=== PATIENT | female | born 1950 | race Caucasian/White ===

== ENCOUNTER 2016-02-15 09:37 | Inpatient (IN) | payer OTHER, MEDICARE ==
[2016-02-15] VITALS (32 sets, daily range): BP systolic 66–104; BP diastolic 37–63
[~2016-02-15] VITALS: Ht 152.4 cm; Wt 81.6 kg
[~2016-02-15 09:37] MED LIST: AMIO200T2 GT; ASPI81TA2 GT; ATOR10TA GT; BETA1TAB4 GT; BISA10SU8 RC; DEXT15DR EACHEYE; FOLI0.8T2 GT; INSU100I19 SQ; INSU100V3 SQ; LEVO50TA8 GT; LIDO30AD10 TP; LOPE2CAP GT; MELA3TAB GT; METO5SOL GT; MIDO10TA GT; MORP10SO GT; NUTR100037 GT; OMEP40CA37 GT; TRAM50TA2 GT; ZINC220C6 GT
[2016-02-15] MEDS ORDERED: ONDANSETRON HCL/PF 4 MG/2 ML VIAL ONE ×2 (10:24→21:41)
[2016-02-15] MEDS ORDERED: IV NS 0.9% 1,000 ML ONE (10:25)
[2016-02-15] MEDS ORDERED: IV SET PRIMARY PUMP SET 1 EA INFUS.SET MC ONE ×4 (10:25→17:41)
[2016-02-15] MEDS ORDERED: ONDANSETRON HCL/PF 4 MG/2 ML VIAL IVP ONE (10:30)
[2016-02-15] MEDS ORDERED: IV NS 0.9% 1,000 ML BAG IV ONE ×2 (10:30→13:30)
[2016-02-15 10:35] LABS: BASOPHILS # (AUTO) 0.5 /CMM (0.0-0.2); BASOPHILS % (AUTO) 2.6 % (0.0-2.0); DIFF TOTAL % 100 %; EOSINOPHILS % (AUTO) 0.2 % (0.0-6.0); HEMATOCRIT 33 % (33-45); HEMOGLOBIN 10.7 g/dL (11.5-14.8); LYMPHOCYTES # (AUTO) 0.6 /CMM (0.8-4.8); LYMPHOCYTES % (AUTO) 3.5 % (20.0-44.0); MEAN CORPUSCULAR HEMOGLOBIN 30 PG (26.0-33.0); MEAN CORPUSCULAR HGB CONC 32 g/dl (31.0-36.0); MEAN CORPUSCULAR VOLUME 93 fL (82-100); MONOCYTES # (AUTO) 0.1 /CMM (0.1-1.30); MONOCYTES % (AUTO) 0.8 % (2.0-12.0); NEUTROPHILS % (AUTO) 92.9 % (43.0-81.0); PLATELET COUNT (AUTO) 204 /CMM (150-450); WHITE BLOOD COUNT (AUTO) 18.2 K/uL (4.3-11.0)
[2016-02-15 10:49] LABS: CREATININE 4.3 mg/dL (0.6-1.3); INR 1.14 (0.87-1.13); POTASSIUM 5.4 mmol/L (3.5-5.1)
[2016-02-15 10:58] LABS: ALBUMIN 1.8 g/dL (3.4-5.0); BILIRUBIN,DIRECT 0.4 mg/dL (0.0-0.2); INDIRECT BILIRUBIN 0.6 mg/dL (0.0-1.1); TOTAL PROTEIN, SERUM 7.9 g/dL (6.4-8.2)
[2016-02-15 11:01] LABS: TROPONIN I 0.026 ng/mL (0.00-0.056)
[2016-02-15] MEDS ORDERED: ONDA4TAB5 GT (11:04)
[2016-02-15] MEDS ORDERED: AMIN30LI2 GT (11:04)
[2016-02-15] MEDS ORDERED: SIME80TA15 GT (11:04)
[2016-02-15] MEDS ORDERED: SENN8.6T6 GT (11:04)
[2016-02-15] MEDS ORDERED: LACT10SO29 GT (11:04)
[2016-02-15] MEDS ORDERED: DOCU50LI GT (11:04)
[2016-02-15] MEDS ORDERED: LEVOFLOXACIN 750 MG /D5W 150ML 750 MG in PREMIX 1 EA IV ONE (12:30)
[2016-02-15] MEDS ORDERED: VANCOMYCIN 1 GM in IV D5W 250 ML IV ONE (12:30)
[2016-02-15] MEDS ORDERED: LEVOFLOXACIN 750 MG /D5W 150ML 150 ML IV ONE (12:37)
[2016-02-15 12:55] LABS: *LACTIC ACID REFLEX FLAG YES
[2016-02-15] MEDS ORDERED: IV NS 0.9% 2,000 ML ONE (13:49)
[2016-02-15] MEDS ORDERED: DEXTROSE 50%-WATER 50 ML DISP.SYRIN IV PRN (16:30)
[2016-02-15] MEDS ORDERED: INSULIN DETEMIR 100 UNIT/ML CARTRIDGE SQ SCH (16:30)
[2016-02-15] MEDS ORDERED: HYDROGEL DRESSING 90 GM TUBE TP PRN (16:30)
[2016-02-15] MEDS ORDERED: MEROPENEM 500 MG in IV NS 0.9% 50 ML IV SCH ×2 (16:30→17:30)
[2016-02-15] MEDS ORDERED: Z GUARD REMEDY 4 OZ OINT TP PRN (16:30)
[2016-02-15] MEDS: IV NS 0.9% 1,000 ML IV PRN (16:38)
[2016-02-15] MEDS ORDERED: ONDANSETRON 4 MG TAB.RAPDIS GT PRN (17:00)
[2016-02-15] MEDS ORDERED: POLYVINYL ALCOHOL 15 ML BOTTLE EACHEYE PRN (17:00)
[2016-02-15] MEDS ORDERED: BISACODYL SUPP (10 MG) 10 MG/SUPP.RECT SUPP.RECT RC PRN (17:00)
[2016-02-15] MEDS ORDERED: MORPHINE SULFATE SOLN CONCENTRATED 20 MG/ML GT PRN (17:30)
[2016-02-15] MEDS ORDERED: IV NS 0.9% 500 ML IV ONE ×2 (17:41→18:00)
[2016-02-15] MEDS: DOCUSATE SODIUM LIQ 100 MG/10 ML UDC GT SCH (17:46)
[2016-02-15] MEDS: MIDODRINE HCL (5MG) 5 MG TABLET GT SCH (17:46)
[2016-02-15] MEDS: PANTOPRAZOLE 40 MG VIAL IV SCH (17:46)
[2016-02-15] MEDS: PROSOURCE / PROSTAT (PYXIS) 30 ML UDC GT SCH (17:47)
[2016-02-15] MEDS: AMIODARONE HCL 200 MG TABLET GT SCH (17:47)
[2016-02-15] MEDS ORDERED: NOREPINEPHRINE 16 MG in IV D5W 500 ML IV PRN (18:00)
[2016-02-15] MEDS: BLOOD SUGAR DIAGNOSTIC 1 EACH STRIP IN SCH ×2 (18:02→23:41)
[2016-02-15] MEDS ORDERED: LEVOFLOXACIN 750 MG /D5W 150ML 750 MG in PREMIX 1 EA IV SCH (18:30)
[2016-02-15] MEDS: IPRATROPIUM NEB FS 0.5 MG/2.5 ML AMPUL.NEB NEB SCH (19:22)
[2016-02-15] MEDS ORDERED: SECONDARY IV SET 1 EA INFUS.SET MC ONE (19:29)
[2016-02-15] MEDS: ONDANSETRON HCL/PF 4 MG/2 ML VIAL IV PRN (21:53)
[2016-02-15] MEDS: INSULIN DETEMIR 100 UNIT/ML CARTRIDGE SQ SCH (21:54)
[2016-02-15] MEDS: HEPARIN SODIUM, PORCINE 5000 UNITS/1 ML VIAL SQ SCH (21:54)
[2016-02-15] MEDS: ATORVASTATIN 10 MG TABLET GT SCH (21:55)
[2016-02-15] MEDS: SENNOSIDES 8.6 MG TABLET GT SCH (21:55)
[2016-02-15] MEDS ORDERED: Medication Not On Formulary EA (Melatonin 3 MG) GT SCH (22:00)
[2016-02-16] VITALS (89 sets, daily range): BP systolic 76–127; BP diastolic 34–71
[2016-02-16] MEDS: IPRATROPIUM NEB FS 0.5 MG/2.5 ML AMPUL.NEB NEB SCH ×4 (01:03→19:22)
[2016-02-16] MEDS: PANTOPRAZOLE 40 MG VIAL IV SCH ×2 (04:45→16:32)
[2016-02-16] MEDS: HEPARIN SODIUM, PORCINE 5000 UNITS/1 ML VIAL SQ SCH (04:46)
[2016-02-16 05:18] LABS: HEMATOCRIT 24 % (33-45); HEMOGLOBIN 7.8 g/dL (11.5-14.8); MEAN CORPUSCULAR HEMOGLOBIN 30 PG (26.0-33.0); MEAN CORPUSCULAR HGB CONC 33 g/dl (31.0-36.0); MEAN CORPUSCULAR VOLUME 93 fL (82-100); PLATELET COUNT (AUTO) 109 /CMM (150-450); WHITE BLOOD COUNT (AUTO) 12.6 K/uL (4.3-11.0)
[2016-02-16 05:28] LABS: CREATININE 4.6 mg/dL (0.6-1.3); POTASSIUM 5.1 mmol/L (3.5-5.1)
[2016-02-16 05:34] LABS: ALBUMIN 1.5 g/dL (3.4-5.0); BILIRUBIN,TOTAL 0.6 mg/dL (0.2-1.0); LACTIC ACID 0.7 mmol/L (0.4-2.0); TOTAL PROTEIN, SERUM 6.5 g/dL (6.4-8.2)
[2016-02-16] MEDS: BLOOD SUGAR DIAGNOSTIC 1 EACH STRIP IN SCH ×4 (05:37→18:32)
[2016-02-16] MEDS: IV NS 0.9% 1,000 ML IV PRN (05:37)
[2016-02-16] MEDS: LEVOTHYROXINE SODIUM 50 MCG TABLET GT SCH (05:37)
[2016-02-16 06:02] LABS: ANISOCYTOSIS 2+; BAND % (MANUAL) 6 % (0.0-5.0); BASOPHILS % (MANUAL) 0 % (0.0-2.0); EOSINOPHILS % (MANUAL) 0 % (0-4); LYMPHOCYTES % (MANUAL) 5 % (16-48); PLATELET ESTIMATE DECREASED
[2016-02-16] MEDS ORDERED: [UNRECOGNIZED DRUG - OTHER] GT SCH (09:00)
[2016-02-16] MEDS: INSULIN DETEMIR 100 UNIT/ML CARTRIDGE SQ SCH ×2 (09:00→21:00)
[2016-02-16] MEDS: PROSOURCE / PROSTAT (PYXIS) 30 ML UDC GT SCH ×3 (09:01→16:36)
[2016-02-16] MEDS: DOCUSATE SODIUM LIQ 100 MG/10 ML UDC GT SCH ×2 (09:01→16:36)
[2016-02-16] MEDS: VIT B CMPLX 3/FA/VIT C/BIOTIN 1 TAB TABLET PO SCH (09:02)
[2016-02-16] MEDS: MIDODRINE HCL (5MG) 5 MG TABLET GT SCH ×3 (09:03→16:37)
[2016-02-16] MEDS: AMIODARONE HCL 200 MG TABLET GT SCH (09:04)
[2016-02-16] MEDS: TRAMADOL HCL 50 MG TABLET GT PRN (09:04)
[2016-02-16] MEDS: LIDOCAINE 5% (PATCH) 1 EA PATCH TP SCH (09:05)
[2016-02-16] MEDS ORDERED: DIATR MEGLU/DIATRIZOATE SODIUM 120 ML BOTTLE (GASTROGRAPHIN) ONE (09:35)
[2016-02-16] MEDS ORDERED: ALBUMIN 25% 25 GM in PREMIX 1 EA IV ONE (11:00)
[2016-02-16] MEDS: MEROPENEM 500 MG in IV NS 0.9% 50 ML IV SCH (12:44)
[2016-02-16] MEDS ORDERED: IV NS 0.9% 1,000 ML ONE (18:51)
[2016-02-16] MEDS: SENNOSIDES 8.6 MG TABLET GT SCH (22:00)
[2016-02-16] MEDS: ATORVASTATIN 10 MG TABLET GT SCH (22:00)
[2016-02-17] VITALS (73 sets, daily range): BP systolic 91–112; BP diastolic 48–70
[2016-02-17] MEDS ORDERED: HYDROMORPHONE 1 MG/1 ML DISP.SYRIN ONE (00:04)
[2016-02-17] MEDS: HYDROMORPHONE 1 MG/1 ML DISP.SYRIN IV PRN ×3 (00:16→22:25)
[2016-02-17] MEDS: BLOOD SUGAR DIAGNOSTIC 1 EACH STRIP IN SCH ×5 (00:17→19:55)
[2016-02-17] MEDS: MEROPENEM 500 MG in IV NS 0.9% 50 ML IV SCH ×2 (00:19→15:59)
[2016-02-17] MEDS: IPRATROPIUM NEB FS 0.5 MG/2.5 ML AMPUL.NEB NEB SCH ×4 (01:08→20:18)
[2016-02-17] MEDS: PANTOPRAZOLE 40 MG VIAL IV SCH ×2 (05:00→15:59)
[2016-02-17 05:39] LABS: BASOPHILS % (AUTO) 0.2 % (0.0-2.0); DIFF TOTAL % 100 %; EOSINOPHILS % (AUTO) 0.3 % (0.0-6.0); HEMATOCRIT 21 % (33-45); LYMPHOCYTES # (AUTO) 0.4 /CMM (0.8-4.8); LYMPHOCYTES % (AUTO) 5.5 % (20.0-44.0); MEAN CORPUSCULAR HEMOGLOBIN 30 PG (26.0-33.0); MEAN CORPUSCULAR HGB CONC 33 g/dl (31.0-36.0); MEAN CORPUSCULAR VOLUME 92 fL (82-100); MONOCYTES # (AUTO) 0.4 /CMM (0.1-1.30); MONOCYTES % (AUTO) 5.3 % (2.0-12.0); NEUTROPHILS # (AUTO) 6.5 /CMM (1.8-8.9); NEUTROPHILS % (AUTO) 88.7 % (43.0-81.0); PLATELET COUNT (AUTO) 88 /CMM (150-450); RED BLOOD CELL COUNT(AUTO) 2.28 MIL/uL (4.0-5.2); WHITE BLOOD COUNT (AUTO) 7.4 K/uL (4.3-11.0)
[2016-02-17 05:45] LABS: HEMOGLOBIN 6.9 g/dL (11.5-14.8)
[2016-02-17 05:59] LABS: ALBUMIN 1.7 g/dL (3.4-5.0); BILIRUBIN,TOTAL 0.5 mg/dL (0.2-1.0); CALCIUM, SERUM 7.3 mg/dL (8.5-10.1); CREATININE 3.4 mg/dL (0.6-1.3); POTASSIUM 3.7 mmol/L (3.5-5.1)
[2016-02-17] MEDS: LEVOTHYROXINE SODIUM 50 MCG TABLET GT SCH (06:10)
[2016-02-17] MEDS: INSULIN DETEMIR 100 UNIT/ML CARTRIDGE SQ SCH ×2 (09:00→21:00)
[2016-02-17 09:25] LABS: ANISOCYTOSIS 1+; BAND % (MANUAL) 5 % (0.0-5.0); HYPOCHROMASIA 1+; LYMPHOCYTES % (MANUAL) 6 % (16-48); PLATELET ESTIMATE DECREASED
[2016-02-17] MEDS: PROSOURCE / PROSTAT (PYXIS) 30 ML UDC GT SCH ×3 (09:55→17:00)
[2016-02-17] MEDS: VIT B CMPLX 3/FA/VIT C/BIOTIN 1 TAB TABLET PO SCH (09:55)
[2016-02-17] MEDS: DOCUSATE SODIUM LIQ 100 MG/10 ML UDC GT SCH ×2 (09:55→17:00)
[2016-02-17] MEDS: AMIODARONE HCL 200 MG TABLET GT SCH (09:55)
[2016-02-17] MEDS: LIDOCAINE 5% (PATCH) 1 EA PATCH TP SCH (09:56)
[2016-02-17] MEDS: MIDODRINE HCL (5MG) 5 MG TABLET GT SCH ×3 (09:56→17:00)
[2016-02-17] MEDS: METOCLOPRAMIDE HCL 5 MG/5 ML UDC GT PRN (16:10)
[2016-02-17] MEDS: IV NS 0.9% 1,000 ML IV PRN (16:15)
[2016-02-17] MEDS ORDERED: LEVOFLOXACIN 500 MG /D5W 100ML 500 MG in PREMIX 1 EA IV SCH (18:00)
[2016-02-17] MEDS: SENNOSIDES 8.6 MG TABLET GT SCH (22:00)
[2016-02-17] MEDS: ATORVASTATIN 10 MG TABLET GT SCH ×2 (22:00→22:21)
[2016-02-18] VITALS: BP_SYST 105; BP_SYST 88; BP_DIAS 54; BP_DIAS 57
[2016-02-18] MEDS: MEROPENEM 500 MG in IV NS 0.9% 50 ML IV SCH ×2 (00:06→12:03)
[2016-02-18] MEDS: BLOOD SUGAR DIAGNOSTIC 1 EACH STRIP IN SCH ×3 (00:13→17:02)
[2016-02-18] MEDS: IPRATROPIUM NEB FS 0.5 MG/2.5 ML AMPUL.NEB NEB SCH ×4 (01:19→19:49)
[2016-02-18] MEDS: IV NS 0.9% 1,000 ML IV PRN ×2 (03:21→16:42)
[2016-02-18] MEDS: HYDROMORPHONE 1 MG/1 ML DISP.SYRIN IV PRN ×3 (03:29→21:31)
[2016-02-18] MEDS: PANTOPRAZOLE 40 MG VIAL IV SCH ×2 (03:33→15:41)
[2016-02-18 04:00] VITALS: BP 107/59
[2016-02-18] MEDS: LEVOTHYROXINE SODIUM 50 MCG TABLET GT SCH (06:26)
[2016-02-18 06:51] LABS: BASOPHILS % (AUTO) 0.6 % (0.0-2.0); DIFF TOTAL % 100 %; EOSINOPHILS % (AUTO) 0.2 % (0.0-6.0); HEMATOCRIT 24 % (33-45); HEMOGLOBIN 7.7 g/dL (11.5-14.8); LYMPHOCYTES # (AUTO) 0.6 /CMM (0.8-4.8); MEAN CORPUSCULAR HEMOGLOBIN 30 PG (26.0-33.0); MEAN CORPUSCULAR HGB CONC 32 g/dl (31.0-36.0); MEAN CORPUSCULAR VOLUME 93 fL (82-100); MONOCYTES # (AUTO) 0.3 /CMM (0.1-1.30); MONOCYTES % (AUTO) 3.3 % (2.0-12.0); NEUTROPHILS % (AUTO) 87.9 % (43.0-81.0); PLATELET COUNT (AUTO) 110 /CMM (150-450); RED BLOOD CELL COUNT(AUTO) 2.59 MIL/uL (4.0-5.2); WHITE BLOOD COUNT (AUTO) 7.9 K/uL (4.3-11.0)
[2016-02-18 07:48] LABS: CREATININE 4.2 mg/dL (0.6-1.3); PHOSPHORUS 5.9 mg/dL (2.5-4.9)
[2016-02-18 08:00] VITALS: BP 114/64
[2016-02-18] MEDS: LIDOCAINE 5% (PATCH) 1 EA PATCH TP SCH (08:27)
[2016-02-18] MEDS: DOCUSATE SODIUM LIQ 100 MG/10 ML UDC GT SCH ×2 (08:27→16:27)
[2016-02-18] MEDS: PROSOURCE / PROSTAT (PYXIS) 30 ML UDC GT SCH ×3 (08:27→16:27)
[2016-02-18] MEDS: MIDODRINE HCL (5MG) 5 MG TABLET GT SCH ×3 (08:28→16:27)
[2016-02-18] MEDS: ONDANSETRON HCL/PF 4 MG/2 ML VIAL IV PRN (08:28)
[2016-02-18] MEDS: AMIODARONE HCL 200 MG TABLET GT SCH (08:28)
[2016-02-18] MEDS: VIT B CMPLX 3/FA/VIT C/BIOTIN 1 TAB TABLET PO SCH (08:28)
[2016-02-18] MEDS: INSULIN DETEMIR 100 UNIT/ML CARTRIDGE SQ SCH ×2 (08:30→21:00)
[2016-02-18] MEDS ORDERED: EPOETIN ALFA (10,000 UNIT) 10,000 UNIT/ML VIAL SQ ONE (09:00)
[2016-02-18 12:00] VITALS: BP 115/82
[2016-02-18 16:00] VITALS: BP 115/50
[2016-02-18 20:00] VITALS: BP 109/61
[2016-02-18] MEDS: CEFEPIME 1 GM in IV D5W 50 ML IV SCH (20:29)
[2016-02-18] MEDS: SENNOSIDES 8.6 MG TABLET GT SCH (21:25)
[2016-02-18] MEDS: ATORVASTATIN 10 MG TABLET GT SCH (21:25)
[2016-02-18] MEDS: METOPROLOL TARTRATE 25 MG TABLET PO SCH (21:26)
[2016-02-18] MEDS ORDERED: ZOLPIDEM TARTRATE 5 MG TABLET ONE (22:47)
[2016-02-18] MEDS ORDERED: ZOLPIDEM TARTRATE 10 MG TABLET PO ONE (23:00)
[2016-02-19] VITALS: BP 88/57
[2016-02-19] MEDS: BLOOD SUGAR DIAGNOSTIC 1 EACH STRIP IN SCH ×5 (00:39→23:55)
[2016-02-19] MEDS: IPRATROPIUM NEB FS 0.5 MG/2.5 ML AMPUL.NEB NEB SCH ×4 (01:47→20:15)
[2016-02-19] MEDS: HYDROMORPHONE 1 MG/1 ML DISP.SYRIN IV PRN ×3 (01:51→20:05)
[2016-02-19 04:00] VITALS: BP 98/60
[2016-02-19] MEDS: PANTOPRAZOLE 40 MG VIAL IV SCH ×2 (04:53→16:30)
[2016-02-19] MEDS: LEVOTHYROXINE SODIUM 50 MCG TABLET GT SCH (05:50)
[2016-02-19] MEDS: IV NS 0.9% 1,000 ML IV PRN ×2 (06:22→18:03)
[2016-02-19 08:00] VITALS: BP 98/54
[2016-02-19] MEDS: PROSOURCE / PROSTAT (PYXIS) 30 ML UDC GT SCH ×3 (08:56→16:30)
[2016-02-19] MEDS: VIT B CMPLX 3/FA/VIT C/BIOTIN 1 TAB TABLET PO SCH (08:57)
[2016-02-19] MEDS: MIDODRINE HCL (5MG) 5 MG TABLET GT SCH ×3 (08:57→16:30)
[2016-02-19] MEDS: METOPROLOL TARTRATE 25 MG TABLET PO SCH ×2 (08:57→20:22)
[2016-02-19] MEDS: DOCUSATE SODIUM LIQ 100 MG/10 ML UDC GT SCH ×2 (09:00→16:30)
[2016-02-19] MEDS: LIDOCAINE 5% (PATCH) 1 EA PATCH TP SCH (09:02)
[2016-02-19] MEDS: INSULIN DETEMIR 100 UNIT/ML CARTRIDGE SQ SCH ×2 (09:02→22:27)
[2016-02-19 12:00] VITALS: BP 118/69
[2016-02-19 16:00] VITALS: BP 143/77
[2016-02-19] MEDS: RENAL NOVASOURCE 1,000 ML BOTTLE GT PRN (18:03)
[2016-02-19 20:00] VITALS: BP 123/62
[2016-02-19] MEDS: CEFEPIME 1 GM in IV D5W 50 ML IV SCH (20:14)
[2016-02-19] MEDS: SENNOSIDES 8.6 MG TABLET GT SCH (21:02)
[2016-02-19] MEDS: ATORVASTATIN 10 MG TABLET GT SCH (21:02)
[2016-02-20] VITALS (7 sets, daily range): BP systolic 87–99; BP diastolic 41–55
[2016-02-20] MEDS: HYDROMORPHONE 1 MG/1 ML DISP.SYRIN IV PRN ×2 (01:15→20:16)
[2016-02-20] MEDS: IPRATROPIUM NEB FS 0.5 MG/2.5 ML AMPUL.NEB NEB SCH ×4 (01:30→20:02)
[2016-02-20] MEDS: PANTOPRAZOLE 40 MG VIAL IV SCH ×2 (04:37→19:13)
[2016-02-20] MEDS: LEVOTHYROXINE SODIUM 50 MCG TABLET GT SCH (05:25)
[2016-02-20] MEDS: BLOOD SUGAR DIAGNOSTIC 1 EACH STRIP IN SCH ×3 (05:25→19:16)
[2016-02-20] MEDS: INSULIN REGULAR, HUMAN 100 UNIT/ML 3 ML VIAL SQ PRN ×3 (05:26→19:20)
[2016-02-20] MEDS: METOPROLOL TARTRATE 25 MG TABLET PO SCH ×2 (09:00→21:00)
[2016-02-20] MEDS: LIDOCAINE 5% (PATCH) 1 EA PATCH TP SCH (09:21)
[2016-02-20] MEDS: PROSOURCE / PROSTAT (PYXIS) 30 ML UDC GT SCH ×3 (09:21→19:13)
[2016-02-20] MEDS: MIDODRINE HCL (5MG) 5 MG TABLET GT SCH ×3 (09:21→19:14)
[2016-02-20] MEDS: VIT B CMPLX 3/FA/VIT C/BIOTIN 1 TAB TABLET PO SCH (09:21)
[2016-02-20] MEDS: DOCUSATE SODIUM LIQ 100 MG/10 ML UDC GT SCH ×2 (09:21→17:00)
[2016-02-20] MEDS: METOCLOPRAMIDE HCL 5 MG/5 ML UDC GT PRN ×2 (09:24→20:17)
[2016-02-20] MEDS: INSULIN DETEMIR 100 UNIT/ML CARTRIDGE SQ SCH ×2 (09:53→21:45)
[2016-02-20] MEDS: IV NS 0.9% 1,000 ML IV PRN (09:53)
[2016-02-20] MEDS ORDERED: IV SET PRIMARY PUMP SET 1 EA INFUS.SET MC ONE (13:00)
[2016-02-20] MEDS ORDERED: IV NS 0.9% 250 ML BAG IV ONE (13:00)
[2016-02-20] MEDS ORDERED: IV NS 0.9% 1,000 ML IV PRN (13:00)
[2016-02-20] MEDS: CEFEPIME 1 GM in IV D5W 50 ML IV SCH (20:15)
[2016-02-20] MEDS: RENAL NOVASOURCE 1,000 ML BOTTLE GT PRN (20:17)
[2016-02-20] MEDS: ATORVASTATIN 10 MG TABLET GT SCH (21:41)
[2016-02-20] MEDS: TRAMADOL HCL 50 MG TABLET GT PRN (21:42)
[2016-02-20] MEDS: SENNOSIDES 8.6 MG TABLET GT SCH (21:46)
[2016-02-21] VITALS (7 sets, daily range): BP systolic 103–133; BP diastolic 51–76
[2016-02-21] MEDS: HYDROMORPHONE 1 MG/1 ML DISP.SYRIN IV PRN ×3 (00:52→19:25)
[2016-02-21] MEDS: BLOOD SUGAR DIAGNOSTIC 1 EACH STRIP IN SCH ×5 (01:08→23:35)
[2016-02-21] MEDS: IPRATROPIUM NEB FS 0.5 MG/2.5 ML AMPUL.NEB NEB SCH ×2 (01:42→19:58)
[2016-02-21] MEDS: IV NS 0.9% 1,000 ML IV PRN ×2 (04:21→17:56)
[2016-02-21] MEDS: ONDANSETRON HCL/PF 4 MG/2 ML VIAL IV PRN (04:39)
[2016-02-21] MEDS: PANTOPRAZOLE 40 MG VIAL IV SCH ×2 (04:39→18:05)
[2016-02-21] MEDS: LEVOTHYROXINE SODIUM 50 MCG TABLET GT SCH (05:45)
[2016-02-21] MEDS: INSULIN REGULAR, HUMAN 100 UNIT/ML 3 ML VIAL SQ PRN ×3 (05:48→23:47)
[2016-02-21] MEDS: VIT B CMPLX 3/FA/VIT C/BIOTIN 1 TAB TABLET PO SCH (08:58)
[2016-02-21] MEDS: PROSOURCE / PROSTAT (PYXIS) 30 ML UDC GT SCH ×3 (09:00→18:05)
[2016-02-21] MEDS: DOCUSATE SODIUM LIQ 100 MG/10 ML UDC GT SCH ×2 (09:00→18:07)
[2016-02-21] MEDS: MIDODRINE HCL (5MG) 5 MG TABLET GT SCH ×3 (09:01→18:08)
[2016-02-21] MEDS: METOPROLOL TARTRATE 25 MG TABLET PO SCH (09:02)
[2016-02-21] MEDS: LIDOCAINE 5% (PATCH) 1 EA PATCH TP SCH (09:02)
[2016-02-21] MEDS: INSULIN DETEMIR 100 UNIT/ML CARTRIDGE SQ SCH ×2 (09:04→20:27)
[2016-02-21] MEDS: METOCLOPRAMIDE HCL 5 MG/5 ML UDC GT PRN (09:05)
[2016-02-21] MEDS ORDERED: POTASSIUM CL. PREMIX PERIPHER. 50 ML IV SCH (11:30)
[2016-02-21] MEDS ORDERED: SECONDARY IV SET 1 EA INFUS.SET MC ONE ×4 (11:42→23:37)
[2016-02-21] MEDS: ALBUMIN 25% 25 GM in PREMIX 1 EA IV SCH ×3 (12:09→23:35)
[2016-02-21] MEDS ORDERED: DIGOXIN INJ 0.5 MG/2 ML AMPUL IV ONE ×2 (17:00→21:00)
[2016-02-21] MEDS: CEFEPIME 1 GM in IV D5W 50 ML IV SCH (20:25)
[2016-02-21] MEDS: ATORVASTATIN 10 MG TABLET GT SCH (21:27)
[2016-02-21] MEDS: SENNOSIDES 8.6 MG TABLET GT SCH (21:27)
[2016-02-22] VITALS: BP 130/64
[2016-02-22] MEDS: HYDROMORPHONE 1 MG/1 ML DISP.SYRIN IV PRN ×2 (00:20→10:48)
[2016-02-22] MEDS: IPRATROPIUM NEB FS 0.5 MG/2.5 ML AMPUL.NEB NEB SCH ×4 (01:30→19:30)
[2016-02-22 04:00] VITALS: BP 92/45
[2016-02-22] MEDS: PANTOPRAZOLE 40 MG VIAL IV SCH ×2 (04:45→16:09)
[2016-02-22] MEDS: RENAL NOVASOURCE 1,000 ML BOTTLE GT PRN (04:49)
[2016-02-22] MEDS: ALBUMIN 25% 25 GM in PREMIX 1 EA IV SCH (04:49)
[2016-02-22] MEDS: BLOOD SUGAR DIAGNOSTIC 1 EACH STRIP IN SCH ×4 (06:20→23:45)
[2016-02-22] MEDS: LEVOTHYROXINE SODIUM 50 MCG TABLET GT SCH (06:20)
[2016-02-22 08:00] VITALS: BP 94/42
[2016-02-22 08:02] LABS: BASOPHILS % (AUTO) 0.3 % (0.0-2.0); DIFF TOTAL % 100 %; EOSINOPHILS % (AUTO) 0.3 % (0.0-6.0); HEMATOCRIT 22 % (33-45); HEMOGLOBIN 7.1 g/dL (11.5-14.8); LYMPHOCYTES # (AUTO) 0.7 /CMM (0.8-4.8); LYMPHOCYTES % (AUTO) 11.3 % (20.0-44.0); MEAN CORPUSCULAR HEMOGLOBIN 29 PG (26.0-33.0); MEAN CORPUSCULAR HGB CONC 32 g/dl (31.0-36.0); MEAN CORPUSCULAR VOLUME 92 fL (82-100); MONOCYTES # (AUTO) 0.3 /CMM (0.1-1.30); MONOCYTES % (AUTO) 4.8 % (2.0-12.0); NEUTROPHILS # (AUTO) 5.1 /CMM (1.8-8.9); NEUTROPHILS % (AUTO) 83.3 % (43.0-81.0); PLATELET COUNT (AUTO) 88 /CMM (150-450); RED BLOOD CELL COUNT(AUTO) 2.42 MIL/uL (4.0-5.2); WHITE BLOOD COUNT (AUTO) 6.1 K/uL (4.3-11.0)
[2016-02-22 08:07] LABS: CALCIUM, SERUM 7.7 mg/dL (8.5-10.1); CREATININE 3.3 mg/dL (0.6-1.3); PHOSPHORUS 2.9 mg/dL (2.5-4.9); POTASSIUM 3.1 mmol/L (3.5-5.1)
[2016-02-22] MEDS: DOCUSATE SODIUM LIQ 100 MG/10 ML UDC GT SCH ×2 (08:15→16:06)
[2016-02-22] MEDS: PROSOURCE / PROSTAT (PYXIS) 30 ML UDC GT SCH ×3 (08:15→16:05)
[2016-02-22] MEDS: VIT B CMPLX 3/FA/VIT C/BIOTIN 1 TAB TABLET PO SCH (08:18)
[2016-02-22] MEDS: MIDODRINE HCL (5MG) 5 MG TABLET GT SCH ×3 (08:18→16:09)
[2016-02-22] MEDS: LIDOCAINE 5% (PATCH) 1 EA PATCH TP SCH (08:19)
[2016-02-22] MEDS: INSULIN DETEMIR 100 UNIT/ML CARTRIDGE SQ SCH ×2 (08:20→21:00)
[2016-02-22] MEDS ORDERED: POTASSIUM CHLORIDE 20 MEQ TAB.PRT.SR PO ONE (11:30)
[2016-02-22] MEDS: INSULIN REGULAR, HUMAN 100 UNIT/ML 3 ML VIAL SQ PRN (11:55)
[2016-02-22 12:00] VITALS: BP 126/42
[2016-02-22] MEDS ORDERED: POTASSIUM CHLORIDE 20 MEQ POWDER PACKET GT ONE (12:00)
[2016-02-22] MEDS ORDERED: DIGOXIN ELIX UDC 0.25 MG/5 ML UDC GT SCH ×2 (13:00)
[2016-02-22 14:16] LABS: BAND % (MANUAL) 1 % (0.0-5.0)
[2016-02-22 14:17] LABS: ANISOCYTOSIS 2+; HYPOCHROMASIA 1+; LYMPHOCYTES % (MANUAL) 11 % (16-48); METAMYELOCYTES % 1 % (0-0); PLATELET ESTIMATE DECREASED; STOMATOCYTES 1+
[2016-02-22] MEDS: ONDANSETRON HCL/PF 4 MG/2 ML VIAL IV PRN (14:47)
[2016-02-22 16:00] VITALS: BP 135/67
[2016-02-22 16:13] LABS: ABG BASE EXCESS -5.5 mmol/L; ABG HCO3 21.2 mmol/L; ABG PCO2 47.5 mmHg (35.0-45.0); ABG PH 7.267 (7.350-7.450); ABG PO2 63.1 mmHg (75.0-100.0); ABG TOTAL HEMOGLOBIN 8.3 G/dL (12.0-16.0); AaDO2 167.5 mmHg; O2Hb 87.8 % (94.0-97.0)
[2016-02-22 20:00] VITALS: BP 111/66
[2016-02-22] MEDS: CEFEPIME 1 GM in IV D5W 50 ML IV SCH (21:07)
[2016-02-22] MEDS: ATORVASTATIN 10 MG TABLET GT SCH (21:16)
[2016-02-22] MEDS: SENNOSIDES 8.6 MG TABLET GT SCH (21:16)
[2016-02-23] VITALS (7 sets, daily range): BP systolic 96–152; BP diastolic 42–69
[2016-02-23] MEDS: IPRATROPIUM NEB FS 0.5 MG/2.5 ML AMPUL.NEB NEB SCH ×4 (01:30→20:24)
[2016-02-23] MEDS: PANTOPRAZOLE 40 MG VIAL IV SCH ×2 (04:33→17:14)
[2016-02-23] MEDS: BLOOD SUGAR DIAGNOSTIC 1 EACH STRIP IN SCH ×3 (05:36→17:30)
[2016-02-23] MEDS: LEVOTHYROXINE SODIUM 50 MCG TABLET GT SCH (06:06)
[2016-02-23] MEDS: INSULIN DETEMIR 100 UNIT/ML CARTRIDGE SQ SCH ×2 (09:00→22:27)
[2016-02-23] MEDS: LIDOCAINE 5% (PATCH) 1 EA PATCH TP SCH (09:24)
[2016-02-23] MEDS: VIT B CMPLX 3/FA/VIT C/BIOTIN 1 TAB TABLET PO SCH (09:25)
[2016-02-23] MEDS: MIDODRINE HCL (5MG) 5 MG TABLET GT SCH ×3 (09:25→17:15)
[2016-02-23] MEDS: PROSOURCE / PROSTAT (PYXIS) 30 ML UDC GT SCH ×3 (09:25→17:14)
[2016-02-23] MEDS: DOCUSATE SODIUM LIQ 100 MG/10 ML UDC GT SCH ×2 (09:25→17:14)
[2016-02-23] MEDS: RENAL NOVASOURCE 1,000 ML BOTTLE GT PRN (12:22)
[2016-02-23] MEDS: CEFEPIME 1 GM in IV D5W 50 ML IV SCH (22:18)
[2016-02-23] MEDS: SENNOSIDES 8.6 MG TABLET GT SCH (22:19)
[2016-02-23] MEDS: ATORVASTATIN 10 MG TABLET GT SCH (22:20)
[2016-02-24] VITALS (9 sets, daily range): BP systolic 102–151; BP diastolic 48–68
[2016-02-24] MEDS: BLOOD SUGAR DIAGNOSTIC 1 EACH STRIP IN SCH ×5 (00:03→22:57)
[2016-02-24] MEDS: IPRATROPIUM NEB FS 0.5 MG/2.5 ML AMPUL.NEB NEB SCH ×4 (00:29→19:49)
[2016-02-24] MEDS: PANTOPRAZOLE 40 MG VIAL IV SCH ×2 (04:12→17:38)
[2016-02-24] MEDS: LEVOTHYROXINE SODIUM 50 MCG TABLET GT SCH (06:31)
[2016-02-24] MEDS: INSULIN REGULAR, HUMAN 100 UNIT/ML 3 ML VIAL SQ PRN ×2 (06:34→12:24)
[2016-02-24] MEDS: INSULIN DETEMIR 100 UNIT/ML CARTRIDGE SQ SCH ×2 (09:59→21:00)
[2016-02-24] MEDS: VIT B CMPLX 3/FA/VIT C/BIOTIN 1 TAB TABLET PO SCH (10:00)
[2016-02-24] MEDS: DOCUSATE SODIUM LIQ 100 MG/10 ML UDC GT SCH ×2 (10:00→17:38)
[2016-02-24] MEDS: PROSOURCE / PROSTAT (PYXIS) 30 ML UDC GT SCH ×3 (10:00→17:38)
[2016-02-24] MEDS: LIDOCAINE 5% (PATCH) 1 EA PATCH TP SCH (10:02)
[2016-02-24] MEDS: MIDODRINE HCL (5MG) 5 MG TABLET GT SCH ×3 (10:02→17:39)
[2016-02-24] MEDS: ONDANSETRON HCL/PF 4 MG/2 ML VIAL IV PRN (12:32)
[2016-02-24] MEDS: ATORVASTATIN 10 MG TABLET GT SCH (20:53)
[2016-02-24] MEDS: CEFEPIME 1 GM in IV D5W 50 ML IV SCH (20:53)
[2016-02-24] MEDS: SENNOSIDES 8.6 MG TABLET GT SCH (20:54)
[2016-02-24] MEDS ORDERED: IBUPROFEN SUSP 100 MG/5 ML UDC GT PRN (21:00)
[2016-02-25] VITALS (8 sets, daily range): BP systolic 109–141; BP diastolic 41–69
[2016-02-25] MEDS: IPRATROPIUM NEB FS 0.5 MG/2.5 ML AMPUL.NEB NEB SCH ×4 (00:47→19:18)
[2016-02-25] MEDS: PANTOPRAZOLE 40 MG VIAL IV SCH ×2 (05:26→16:38)
[2016-02-25] MEDS: LEVOTHYROXINE SODIUM 50 MCG TABLET GT SCH (05:27)
[2016-02-25] MEDS: BLOOD SUGAR DIAGNOSTIC 1 EACH STRIP IN SCH ×3 (06:11→13:12)
[2016-02-25 08:06] LABS: BASOPHILS % (AUTO) 0.1 % (0.0-2.0); DIFF TOTAL % 100 %; EOSINOPHILS % (AUTO) 0.3 % (0.0-6.0); LYMPHOCYTES # (AUTO) 0.9 /CMM (0.8-4.8); LYMPHOCYTES % (AUTO) 12.4 % (20.0-44.0); MEAN CORPUSCULAR HEMOGLOBIN 30 PG (26.0-33.0); MEAN CORPUSCULAR HGB CONC 33 g/dl (31.0-36.0); MEAN CORPUSCULAR VOLUME 90 fL (82-100); MONOCYTES # (AUTO) 0.2 /CMM (0.1-1.30); MONOCYTES % (AUTO) 2.6 % (2.0-12.0); NEUTROPHILS # (AUTO) 6.1 /CMM (1.8-8.9); NEUTROPHILS % (AUTO) 84.6 % (43.0-81.0); PLATELET COUNT (AUTO) 82 /CMM (150-450); RED BLOOD CELL COUNT(AUTO) 2.17 MIL/uL (4.0-5.2); WHITE BLOOD COUNT (AUTO) 7.2 K/uL (4.3-11.0)
[2016-02-25 08:22] LABS: HEMOGLOBIN 6.5 g/dL (11.5-14.8)
[2016-02-25 08:23] LABS: HEMATOCRIT 19 % (33-45)
[2016-02-25 08:30] LABS: CALCIUM, SERUM 7.7 mg/dL (8.5-10.1)
[2016-02-25 08:48] LABS: POTASSIUM 2.8 mmol/L (3.5-5.1)
[2016-02-25] MEDS: PROSOURCE / PROSTAT (PYXIS) 30 ML UDC GT SCH ×3 (09:31→17:00)
[2016-02-25] MEDS: MIDODRINE HCL (5MG) 5 MG TABLET GT SCH ×3 (09:31→18:13)
[2016-02-25] MEDS: VIT B CMPLX 3/FA/VIT C/BIOTIN 1 TAB TABLET PO SCH (09:32)
[2016-02-25] MEDS: DOCUSATE SODIUM LIQ 100 MG/10 ML UDC GT SCH ×2 (09:33→18:10)
[2016-02-25] MEDS: LIDOCAINE 5% (PATCH) 1 EA PATCH TP SCH (09:39)
[2016-02-25] MEDS: INSULIN DETEMIR 100 UNIT/ML CARTRIDGE SQ SCH ×2 (09:40→21:00)
[2016-02-25 10:26] LABS: BAND % (MANUAL) 3 % (0.0-5.0); LYMPHOCYTES % (MANUAL) 15 % (16-48); PLATELET ESTIMATE DECREASED
[2016-02-25 10:27] LABS: ANISOCYTOSIS 1+; HYPOCHROMASIA 1+
[2016-02-25 16:55] LABS: BASOPHILS % (AUTO) 0.3 % (0.0-2.0); DIFF TOTAL % 100 %; EOSINOPHILS % (AUTO) 0.5 % (0.0-6.0); LYMPHOCYTES # (AUTO) 0.7 /CMM (0.8-4.8); LYMPHOCYTES % (AUTO) 11.7 % (20.0-44.0); MEAN CORPUSCULAR HEMOGLOBIN 29 PG (26.0-33.0); MEAN CORPUSCULAR HGB CONC 33 g/dl (31.0-36.0); MEAN CORPUSCULAR VOLUME 89 fL (82-100); MONOCYTES # (AUTO) 0.3 /CMM (0.1-1.30); MONOCYTES % (AUTO) 5.2 % (2.0-12.0); NEUTROPHILS # (AUTO) 4.9 /CMM (1.8-8.9); NEUTROPHILS % (AUTO) 82.3 % (43.0-81.0); PLATELET COUNT (AUTO) 80 /CMM (150-450); RED BLOOD CELL COUNT(AUTO) 2.07 MIL/uL (4.0-5.2); WHITE BLOOD COUNT (AUTO) 5.9 K/uL (4.3-11.0)
[2016-02-25] MEDS ORDERED: POTASSIUM CHLORIDE 20 MEQ TAB.PRT.SR PO ONE (17:00)
[2016-02-25 17:13] LABS: IRON, SERUM 21 ug/dl (50-175); PERCENT SATURATION 27 % (14-33); TOTAL IRON BINDING CAPACITY 79 ug/dl (250-450)
[2016-02-25 17:24] LABS: HEMATOCRIT 18 % (33-45); HEMOGLOBIN 6.1 g/dL (11.5-14.8)
[2016-02-25 17:31] LABS: INR 1.29 (0.87-1.13)
[2016-02-25] MEDS ORDERED: POTASSIUM CHLORIDE 20 MEQ POWDER PACKET GT ONE (18:30)
[2016-02-25 18:36] LABS: BAND % (MANUAL) 2 % (0.0-5.0); LYMPHOCYTES % (MANUAL) 13 % (16-48); PLATELET ESTIMATE DECREASED
[2016-02-25 18:37] LABS: ANISOCYTOSIS 2+
[2016-02-25] MEDS: HYDROMORPHONE 1 MG/1 ML DISP.SYRIN IV PRN (20:43)
[2016-02-25] MEDS: CEFEPIME 1 GM in IV D5W 50 ML IV SCH (21:09)
[2016-02-25] MEDS: ONDANSETRON HCL/PF 4 MG/2 ML VIAL IV PRN (21:20)
[2016-02-25] MEDS ORDERED: BLOOD IV SET 1 EA INFUS.SET MC ONE (21:48)
[2016-02-25] MEDS ORDERED: IV NS 0.9% 250 ML IV ONE (21:48)
[2016-02-25] MEDS ORDERED: POTASSIUM CHLORIDE 20 MEQ POWDER PACKET ONE (22:32)
[2016-02-25] MEDS: ATORVASTATIN 10 MG TABLET GT SCH (22:43)
[2016-02-25] MEDS: SENNOSIDES 8.6 MG TABLET GT SCH (22:43)
[2016-02-25] MEDS: METOCLOPRAMIDE HCL 5 MG/5 ML UDC GT PRN (23:58)
[2016-02-26] VITALS (16 sets, daily range): BP systolic 120–153; BP diastolic 62–78
[2016-02-26] MEDS: BLOOD SUGAR DIAGNOSTIC 1 EACH STRIP IN SCH ×5 (00:08→23:51)
[2016-02-26] MEDS: INSULIN REGULAR, HUMAN 100 UNIT/ML 3 ML VIAL SQ PRN ×2 (00:09→05:06)
[2016-02-26] MEDS: HYDROMORPHONE 1 MG/1 ML DISP.SYRIN IV PRN ×3 (01:20→22:39)
[2016-02-26] MEDS: IPRATROPIUM NEB FS 0.5 MG/2.5 ML AMPUL.NEB NEB SCH ×4 (01:21→19:45)
[2016-02-26] MEDS: PANTOPRAZOLE 40 MG VIAL IV SCH ×2 (04:56→15:37)
[2016-02-26] MEDS: ONDANSETRON HCL/PF 4 MG/2 ML VIAL IV PRN ×3 (05:11→18:46)
[2016-02-26] MEDS: LEVOTHYROXINE SODIUM 50 MCG TABLET GT SCH (05:45)
[2016-02-26 07:56] LABS: BASOPHILS % (AUTO) 0.1 % (0.0-2.0); DIFF TOTAL % 100 %; EOSINOPHILS % (AUTO) 0.5 % (0.0-6.0); HEMATOCRIT 25 % (33-45); HEMOGLOBIN 8.3 g/dL (11.5-14.8); LYMPHOCYTES # (AUTO) 0.5 /CMM (0.8-4.8); LYMPHOCYTES % (AUTO) 7.5 % (20.0-44.0); MEAN CORPUSCULAR HEMOGLOBIN 29 PG (26.0-33.0); MEAN CORPUSCULAR HGB CONC 34 g/dl (31.0-36.0); MEAN CORPUSCULAR VOLUME 87 fL (82-100); MONOCYTES # (AUTO) 0.3 /CMM (0.1-1.30); MONOCYTES % (AUTO) 4.8 % (2.0-12.0); NEUTROPHILS # (AUTO) 5.6 /CMM (1.8-8.9); NEUTROPHILS % (AUTO) 87.1 % (43.0-81.0); PLATELET COUNT (AUTO) 74 /CMM (150-450); RED BLOOD CELL COUNT(AUTO) 2.83 MIL/uL (4.0-5.2); WHITE BLOOD COUNT (AUTO) 6.4 K/uL (4.3-11.0)
[2016-02-26 08:01] LABS: CALCIUM, SERUM 7.7 mg/dL (8.5-10.1); CREATININE 4.5 mg/dL (0.6-1.3)
[2016-02-26 08:24] LABS: BAND % (MANUAL) 4 % (0.0-5.0); EOSINOPHILS % (MANUAL) 2 % (0-4); LYMPHOCYTES % (MANUAL) 5 % (16-48)
[2016-02-26 08:25] LABS: PLATELET ESTIMATE DECREASED
[2016-02-26] MEDS: MIDODRINE HCL (5MG) 5 MG TABLET GT SCH ×3 (08:29→18:45)
[2016-02-26] MEDS: DOCUSATE SODIUM LIQ 100 MG/10 ML UDC GT SCH ×2 (08:29→18:44)
[2016-02-26] MEDS: PROSOURCE / PROSTAT (PYXIS) 30 ML UDC GT SCH ×3 (08:29→18:44)
[2016-02-26] MEDS: VIT B CMPLX 3/FA/VIT C/BIOTIN 1 TAB TABLET PO SCH (08:29)
[2016-02-26] MEDS: INSULIN DETEMIR 100 UNIT/ML CARTRIDGE SQ SCH ×2 (08:30→21:00)
[2016-02-26] MEDS: LIDOCAINE 5% (PATCH) 1 EA PATCH TP SCH (08:30)
[2016-02-26] MEDS ORDERED: FENTANYL PF 250MCG/5ML AMPUL IV ONE (09:30)
[2016-02-26] MEDS ORDERED: NALOXONE PREFILLED SYRINGE 2 MG/2 ML SYRINGE IV ONE (09:30)
[2016-02-26] MEDS ORDERED: MIDAZOLAM HCL 5MG/ML VIAL 25 MG/5 ML VIAL IV ONE (09:30)
[2016-02-26 09:51] LABS: ABG BASE EXCESS -3.7 mmol/L; ABG HCO3 21.2 mmol/L; ABG PCO2 37.8 mmHg (35.0-45.0); ABG PH 7.367 (7.350-7.450); ABG TOTAL HEMOGLOBIN 9.7 G/dL (12.0-16.0); ALLEN TEST Pass; AaDO2 144.7 mmHg; O2Hb 94.8 % (94.0-97.0)
[2016-02-26] MEDS ORDERED: LIDOCAINE HCL/PF 1% 30 ML SDV ONE (09:59)
[2016-02-26] MEDS ORDERED: IV SET PRIMARY PUMP SET 1 EA INFUS.SET MC ONE (14:29)
[2016-02-26] MEDS: POTASSIUM CL. PREMIX PERIPHER. 50 ML IV SCH ×2 (14:34→15:36)
[2016-02-26] MEDS: METOCLOPRAMIDE HCL 5 MG/5 ML UDC GT PRN (18:45)
[2016-02-26] MEDS: CEFEPIME 1 GM in IV D5W 50 ML IV SCH (20:53)
[2016-02-26] MEDS: ATORVASTATIN 10 MG TABLET GT SCH (21:12)
[2016-02-26] MEDS: SENNOSIDES 8.6 MG TABLET GT SCH (21:12)
[2016-02-27] VITALS: BP 134/66
[2016-02-27] MEDS: IPRATROPIUM NEB FS 0.5 MG/2.5 ML AMPUL.NEB NEB SCH ×4 (01:04→19:38)
[2016-02-27] MEDS: HYDROMORPHONE 1 MG/1 ML DISP.SYRIN IV PRN ×3 (03:04→22:49)
[2016-02-27] MEDS: ONDANSETRON HCL/PF 4 MG/2 ML VIAL IV PRN ×2 (03:38→19:39)
[2016-02-27] MEDS: PANTOPRAZOLE 40 MG VIAL IV SCH ×2 (03:38→16:37)
[2016-02-27 04:00] VITALS: BP 152/57
[2016-02-27] MEDS: LEVOTHYROXINE SODIUM 50 MCG TABLET GT SCH (06:45)
[2016-02-27] MEDS: BLOOD SUGAR DIAGNOSTIC 1 EACH STRIP IN SCH ×4 (06:49→18:55)
[2016-02-27 08:00] VITALS: BP 151/54
[2016-02-27] MEDS: DOCUSATE SODIUM LIQ 100 MG/10 ML UDC GT SCH ×2 (08:21→16:37)
[2016-02-27] MEDS: MIDODRINE HCL (5MG) 5 MG TABLET GT SCH ×3 (08:22→16:36)
[2016-02-27] MEDS: PROSOURCE / PROSTAT (PYXIS) 30 ML UDC GT SCH ×2 (08:23→12:20)
[2016-02-27] MEDS: VIT B CMPLX 3/FA/VIT C/BIOTIN 1 TAB TABLET PO SCH (08:23)
[2016-02-27] MEDS: INSULIN DETEMIR 100 UNIT/ML CARTRIDGE SQ SCH (08:23)
[2016-02-27] MEDS: LIDOCAINE 5% (PATCH) 1 EA PATCH TP SCH (10:00)
[2016-02-27 12:00] VITALS: BP 135/66
[2016-02-27 16:00] VITALS: BP 152/56
[2016-02-27 20:00] VITALS: BP 141/55
[2016-02-27] MEDS: CEFEPIME 1 GM in IV D5W 50 ML IV SCH (20:57)
[2016-02-27] MEDS: ATORVASTATIN 10 MG TABLET GT SCH (21:00)
[2016-02-27] MEDS: SENNOSIDES 8.6 MG TABLET GT SCH (21:00)
[2016-02-28] VITALS: BP 125/62
[2016-02-28] MEDS: BLOOD SUGAR DIAGNOSTIC 1 EACH STRIP IN SCH ×4 (00:28→17:29)
[2016-02-28] MEDS: IPRATROPIUM NEB FS 0.5 MG/2.5 ML AMPUL.NEB NEB SCH ×4 (00:35→19:18)
[2016-02-28] MEDS: HYDROMORPHONE 1 MG/1 ML DISP.SYRIN IV PRN ×3 (02:24→20:38)
[2016-02-28] MEDS: PANTOPRAZOLE 40 MG VIAL IV SCH ×2 (03:40→15:43)
[2016-02-28 04:00] VITALS: BP_SYST 125; BP_SYST 155; BP_DIAS 62; BP_DIAS 68
[2016-02-28] MEDS: LEVOTHYROXINE SODIUM 50 MCG TABLET GT SCH (06:47)
[2016-02-28] MEDS: ONDANSETRON HCL/PF 4 MG/2 ML VIAL IV PRN (06:57)
[2016-02-28 08:00] VITALS: BP 134/59
[2016-02-28] MEDS: LIDOCAINE 5% (PATCH) 1 EA PATCH TP SCH (08:37)
[2016-02-28] MEDS: MIDODRINE HCL (5MG) 5 MG TABLET GT SCH ×3 (08:37→17:24)
[2016-02-28] MEDS: DOCUSATE SODIUM LIQ 100 MG/10 ML UDC GT SCH ×2 (08:37→17:24)
[2016-02-28] MEDS: VIT B CMPLX 3/FA/VIT C/BIOTIN 1 TAB TABLET PO SCH (08:37)
[2016-02-28 12:00] VITALS: BP 151/71
[2016-02-28] MEDS: METOCLOPRAMIDE HCL 5 MG/5 ML UDC GT PRN (12:24)
[2016-02-28 16:00] VITALS: BP 163/59
[2016-02-28 18:41] LABS: ALBUMIN 1.7 g/dL (3.4-5.0); CALCIUM, SERUM 7.9 mg/dL (8.5-10.1); CREATININE 4.3 mg/dL (0.6-1.3); POTASSIUM 3.6 mmol/L (3.5-5.1); TOTAL PROTEIN, SERUM 6.8 g/dL (6.4-8.2)
[2016-02-28 20:00] VITALS: BP 154/63
[2016-02-28] MEDS ORDERED: IV SET PRIMARY PUMP SET 1 EA INFUS.SET MC ONE (20:43)
[2016-02-28] MEDS: CEFEPIME 1 GM in IV D5W 50 ML IV SCH (20:47)
[2016-02-28] MEDS: ATORVASTATIN 10 MG TABLET GT SCH (20:54)
[2016-02-28] MEDS: SENNOSIDES 8.6 MG TABLET GT SCH (20:54)
[2016-02-28 23:04] LABS: BASOPHILS # (AUTO) 0.1 /CMM (0.0-0.2); BASOPHILS % (AUTO) 0.4 % (0.0-2.0); DIFF TOTAL % 100 %; HEMATOCRIT 32 % (33-45); HEMOGLOBIN 10.2 g/dL (11.5-14.8); LYMPHOCYTES # (AUTO) 0.8 /CMM (0.8-4.8); LYMPHOCYTES % (AUTO) 4.5 % (20.0-44.0); MEAN CORPUSCULAR HEMOGLOBIN 28 PG (26.0-33.0); MEAN CORPUSCULAR HGB CONC 32 g/dl (31.0-36.0); MEAN CORPUSCULAR VOLUME 88 fL (82-100); MONOCYTES # (AUTO) 0.2 /CMM (0.1-1.30); MONOCYTES % (AUTO) 1.2 % (2.0-12.0); NEUTROPHILS # (AUTO) 16.5 /CMM (1.8-8.9); NEUTROPHILS % (AUTO) 93.9 % (43.0-81.0); PLATELET COUNT (AUTO) 129 /CMM (150-450); RED BLOOD CELL COUNT(AUTO) 3.61 MIL/uL (4.0-5.2); WHITE BLOOD COUNT (AUTO) 17.5 K/uL (4.3-11.0)
[2016-02-29] VITALS (7 sets, daily range): BP systolic 118–163; BP diastolic 36–74
[2016-02-29] MEDS: BLOOD SUGAR DIAGNOSTIC 1 EACH STRIP IN SCH ×5 (00:21→23:33)
[2016-02-29] MEDS: IPRATROPIUM NEB FS 0.5 MG/2.5 ML AMPUL.NEB NEB SCH ×4 (01:10→19:15)
[2016-02-29] MEDS: PANTOPRAZOLE 40 MG VIAL IV SCH ×2 (05:26→17:14)
[2016-02-29] MEDS: LEVOTHYROXINE SODIUM 50 MCG TABLET GT SCH (05:28)
[2016-02-29] MEDS: MIDODRINE HCL (5MG) 5 MG TABLET GT SCH ×3 (09:00→17:00)
[2016-02-29] MEDS: VIT B CMPLX 3/FA/VIT C/BIOTIN 1 TAB TABLET PO SCH (09:00)
[2016-02-29] MEDS: DOCUSATE SODIUM LIQ 100 MG/10 ML UDC GT SCH ×2 (09:00→17:14)
[2016-02-29] MEDS: LIDOCAINE 5% (PATCH) 1 EA PATCH TP SCH (09:01)
[2016-02-29] MEDS ORDERED: COLISTIMETHATE SODIUM 75 MG in IV NS 0.9% 50 ML IV SCH (18:00)
[2016-02-29] MEDS ORDERED: SECONDARY IV SET 1 EA INFUS.SET MC ONE (19:59)
[2016-02-29] MEDS: SENNOSIDES 8.6 MG TABLET GT SCH (21:02)
[2016-02-29] MEDS: ATORVASTATIN 10 MG TABLET GT SCH (21:02)
[2016-02-29] MEDS: TRAMADOL HCL 50 MG TABLET GT PRN (22:40)
[2016-02-29] MEDS: INSULIN REGULAR, HUMAN 100 UNIT/ML 3 ML VIAL SQ PRN (23:35)
[2016-03-01] VITALS (11 sets, daily range): BP systolic 136–149; BP diastolic 56–88
[2016-03-01] MEDS: IPRATROPIUM NEB FS 0.5 MG/2.5 ML AMPUL.NEB NEB SCH ×4 (01:29→20:06)
[2016-03-01] MEDS: HYDROMORPHONE 1 MG/1 ML DISP.SYRIN IV PRN ×2 (01:50→17:58)
[2016-03-01] MEDS: PANTOPRAZOLE 40 MG VIAL IV SCH (04:38)
[2016-03-01] MEDS: BLOOD SUGAR DIAGNOSTIC 1 EACH STRIP IN SCH (05:04)
[2016-03-01] MEDS: INSULIN REGULAR, HUMAN 100 UNIT/ML 3 ML VIAL SQ PRN (05:06)
[2016-03-01] MEDS: LEVOTHYROXINE SODIUM 50 MCG TABLET GT SCH (05:24)
[2016-03-01] MEDS: VIT B CMPLX 3/FA/VIT C/BIOTIN 1 TAB TABLET PO SCH (08:21)
[2016-03-01] MEDS: MIDODRINE HCL (5MG) 5 MG TABLET GT SCH ×2 (08:21→13:00)
[2016-03-01] MEDS: DOCUSATE SODIUM LIQ 100 MG/10 ML UDC GT SCH (08:21)
[2016-03-01] MEDS: LIDOCAINE 5% (PATCH) 1 EA PATCH TP SCH (08:22)
[2016-03-01] MEDS ORDERED: NALOXONE PREFILLED SYRINGE 2 MG/2 ML SYRINGE IV ONE (10:00)
[2016-03-01] MEDS ORDERED: MIDAZOLAM HCL 5MG/ML VIAL 25 MG/5 ML VIAL IV ONE (10:00)
[2016-03-01] MEDS ORDERED: FENTANYL PF 250MCG/5ML AMPUL IV ONE (10:00)
[2016-03-01 10:10] LABS: INR 1.28 (0.87-1.13); PROTHROMBIN TIME 13.9 SECS (9.5-12.7)
[2016-03-01] MEDS ORDERED: LIDOCAINE HCL/PF 1% 30 ML SDV ONE (13:36)
[2016-03-01 16:42] LABS: ALBUMIN 1.2 g/dL (3.4-5.0)
[2016-03-01] MEDS: TRAMADOL HCL 50 MG TABLET GT PRN (16:50)
[2016-03-01] MEDS ORDERED: IV SET PRIMARY PUMP SET 1 EA INFUS.SET MC ONE (16:56)
[2016-03-01] MEDS ORDERED: IV D5/ 0.9% NACL 1,000 ML IV ONE (17:00)
[2016-03-01] MEDS: ATORVASTATIN 10 MG TABLET GT SCH (21:23)
[2016-03-01] MEDS: SENNOSIDES 8.6 MG TABLET GT SCH (21:23)
[2016-03-02] VITALS: BP_SYST 132; BP_SYST 145; BP_DIAS 58; BP_DIAS 61
[2016-03-02] MEDS: IPRATROPIUM NEB FS 0.5 MG/2.5 ML AMPUL.NEB NEB SCH ×4 (01:30→20:29)
[2016-03-02] MEDS: BLOOD SUGAR DIAGNOSTIC 1 EACH STRIP IN SCH ×4 (02:08→18:12)
[2016-03-02] MEDS ORDERED: SET PCA INFUSE SET 1 EA INFUS.SET MC ONE (03:04)
[2016-03-02 04:00] VITALS: BP 147/72
[2016-03-02] MEDS: PANTOPRAZOLE 40 MG VIAL IV SCH ×2 (04:30→17:38)
[2016-03-02] MEDS: LEVOTHYROXINE SODIUM 50 MCG TABLET GT SCH (06:16)
[2016-03-02 08:00] VITALS: BP 133/72
[2016-03-02] MEDS: MIDODRINE HCL (5MG) 5 MG TABLET GT SCH ×3 (09:00→17:00)
[2016-03-02] MEDS: VIT B CMPLX 3/FA/VIT C/BIOTIN 1 TAB TABLET PO SCH (09:00)
[2016-03-02] MEDS: DOCUSATE SODIUM LIQ 100 MG/10 ML UDC GT SCH ×2 (09:00→17:38)
[2016-03-02] MEDS: LIDOCAINE 5% (PATCH) 1 EA PATCH TP SCH (09:16)
[2016-03-02 12:00] VITALS: BP 133/70
[2016-03-02] MEDS: RENAL NOVASOURCE 1,000 ML BOTTLE GT PRN (15:43)
[2016-03-02 16:00] VITALS: BP 122/70
[2016-03-02] MEDS ORDERED: DOSE PER PHARMACY (MD SPECIFY MEDICATION) 1 EA XX PRN (17:00)
[2016-03-02 20:00] VITALS: BP 148/63
[2016-03-02] MEDS ORDERED: SULFAMETHOXAZOLE/TRIMETHOPRIM 20 ML in IV D5W 500 ML IV SCH (20:00)
[2016-03-02] MEDS ORDERED: SULFAMETHOXAZOLE/TRIMETHOPRIM 10 ML in IV D5W 250 ML IV SCH (20:00)
[2016-03-02] MEDS: ATORVASTATIN 10 MG TABLET GT SCH (22:16)
[2016-03-02] MEDS: SENNOSIDES 8.6 MG TABLET GT SCH (22:16)
[2016-03-02] MEDS: TRAMADOL HCL 50 MG TABLET GT PRN (22:16)
[2016-03-02] MEDS: SULFAMETHOXAZOLE/TRIMETHOPRIM 15 ML in IV D5W 250 ML IV SCH (22:19)
[2016-03-02] MEDS ORDERED: SECONDARY IV SET 1 EA INFUS.SET MC ONE (22:23)
[2016-03-03] VITALS: BP 132/58
[2016-03-03] MEDS: BLOOD SUGAR DIAGNOSTIC 1 EACH STRIP IN SCH ×5 (00:20→23:16)
[2016-03-03] MEDS: INSULIN REGULAR, HUMAN 100 UNIT/ML 3 ML VIAL SQ PRN ×3 (00:22→23:17)
[2016-03-03] MEDS: IPRATROPIUM NEB FS 0.5 MG/2.5 ML AMPUL.NEB NEB SCH ×4 (01:06→19:34)
[2016-03-03 04:00] VITALS: BP 137/61
[2016-03-03] MEDS: PANTOPRAZOLE 40 MG VIAL IV SCH ×2 (04:03→16:56)
[2016-03-03] MEDS: LEVOTHYROXINE SODIUM 50 MCG TABLET GT SCH (05:35)
[2016-03-03] MEDS ORDERED: IV NS 0.9% 250 ML IV ONE (05:40)
[2016-03-03 08:00] VITALS: BP 129/52
[2016-03-03] MEDS: DOCUSATE SODIUM LIQ 100 MG/10 ML UDC GT SCH ×2 (08:25→16:56)
[2016-03-03] MEDS: LIDOCAINE 5% (PATCH) 1 EA PATCH TP SCH (08:25)
[2016-03-03] MEDS: VIT B CMPLX 3/FA/VIT C/BIOTIN 1 TAB TABLET PO SCH (08:25)
[2016-03-03] MEDS: MIDODRINE HCL (5MG) 5 MG TABLET GT SCH ×3 (08:28→16:57)
[2016-03-03 12:00] VITALS: BP 139/55
[2016-03-03] MEDS: HYDROMORPHONE 1 MG/1 ML DISP.SYRIN IV PRN (15:23)
[2016-03-03 16:00] VITALS: BP 162/55
[2016-03-03 20:00] VITALS: BP 149/62
[2016-03-03] MEDS ORDERED: FEE PK DOSING 1 MIN EA MC ONE (20:02)
[2016-03-03] MEDS: SULFAMETHOXAZOLE/TRIMETHOPRIM 15 ML in IV D5W 250 ML IV SCH (20:30)
[2016-03-03] MEDS ORDERED: VANCOMYCIN 1 GM in IV D5W 250 ML IV ONE (21:00)
[2016-03-03] MEDS: SENNOSIDES 8.6 MG TABLET GT SCH (21:40)
[2016-03-03] MEDS: ATORVASTATIN 10 MG TABLET GT SCH (21:40)
[2016-03-03] MEDS ORDERED: SECONDARY IV SET 1 EA INFUS.SET MC ONE (21:44)
[2016-03-04] VITALS: BP 153/66
[2016-03-04] MEDS: IPRATROPIUM NEB FS 0.5 MG/2.5 ML AMPUL.NEB NEB SCH ×4 (01:44→20:06)
[2016-03-04 04:00] VITALS: BP 144/61
[2016-03-04] MEDS: HYDROMORPHONE 1 MG/1 ML DISP.SYRIN IV PRN ×2 (04:30→20:18)
[2016-03-04] MEDS: LEVOTHYROXINE SODIUM 50 MCG TABLET GT SCH (05:46)
[2016-03-04] MEDS: BLOOD SUGAR DIAGNOSTIC 1 EACH STRIP IN SCH ×3 (05:46→17:01)
[2016-03-04] MEDS: PANTOPRAZOLE 40 MG VIAL IV SCH ×2 (05:50→17:00)
[2016-03-04 07:49] LABS: BASOPHILS % (AUTO) 0.1 % (0.0-2.0); DIFF TOTAL % 100 %; EOSINOPHILS # (AUTO) 0.1 /CMM (0.0-0.7); EOSINOPHILS % (AUTO) 1.5 % (0.0-6.0); HEMATOCRIT 22 % (33-45); HEMOGLOBIN 7.2 g/dL (11.5-14.8); LYMPHOCYTES # (AUTO) 0.5 /CMM (0.8-4.8); LYMPHOCYTES % (AUTO) 11.9 % (20.0-44.0); MEAN CORPUSCULAR HEMOGLOBIN 29 PG (26.0-33.0); MEAN CORPUSCULAR HGB CONC 33 g/dl (31.0-36.0); MEAN CORPUSCULAR VOLUME 89 fL (82-100); MONOCYTES # (AUTO) 0.1 /CMM (0.1-1.30); MONOCYTES % (AUTO) 1.2 % (2.0-12.0); NEUTROPHILS # (AUTO) 3.9 /CMM (1.8-8.9); NEUTROPHILS % (AUTO) 85.3 % (43.0-81.0); PLATELET COUNT (AUTO) 75 /CMM (150-450); RED BLOOD CELL COUNT(AUTO) 2.48 MIL/uL (4.0-5.2); WHITE BLOOD COUNT (AUTO) 4.5 K/uL (4.3-11.0)
[2016-03-04 08:00] VITALS: BP 148/69
[2016-03-04 08:07] LABS: ALBUMIN 1.7 g/dL (3.4-5.0); BILIRUBIN,TOTAL 0.8 mg/dL (0.2-1.0); CALCIUM, SERUM 7.8 mg/dL (8.5-10.1); CREATININE 2.8 mg/dL (0.6-1.3); TOTAL PROTEIN, SERUM 6.4 g/dL (6.4-8.2)
[2016-03-04 08:16] LABS: POTASSIUM 2.2 mmol/L (3.5-5.1)
[2016-03-04] MEDS: DOCUSATE SODIUM LIQ 100 MG/10 ML UDC GT SCH ×2 (08:40→17:00)
[2016-03-04] MEDS: MIDODRINE HCL (5MG) 5 MG TABLET GT SCH ×3 (08:40→17:00)
[2016-03-04 08:41] LABS: BAND % (MANUAL) 5 % (0.0-5.0); LYMPHOCYTES % (MANUAL) 16 % (16-48); PLATELET ESTIMATE DECREASED
[2016-03-04] MEDS: VIT B CMPLX 3/FA/VIT C/BIOTIN 1 TAB TABLET PO SCH (08:41)
[2016-03-04] MEDS ORDERED: VANCOMYCIN 500 MG in IV D5W 100 ML IV PRN (09:00)
[2016-03-04] MEDS: LIDOCAINE 5% (PATCH) 1 EA PATCH TP SCH (10:59)
[2016-03-04 12:00] VITALS: BP 115/53
[2016-03-04] MEDS: INSULIN REGULAR, HUMAN 100 UNIT/ML 3 ML VIAL SQ PRN ×3 (12:51→22:51)
[2016-03-04] MEDS ORDERED: LIDOCAINE 1%-EPI 1:100,000 50 ML VIAL IJ ONE (14:30)
[2016-03-04] MEDS ORDERED: VANCOMYCIN 1 GM in IV D5W 250 ML IV ONE (15:00)
[2016-03-04 16:00] VITALS: BP 136/68
[2016-03-04] MEDS ORDERED: QUETIAPINE FUMARATE 25 MG TABLET PO PRN (18:00)
[2016-03-04 20:00] VITALS: BP 135/30
[2016-03-04] MEDS: SULFAMETHOXAZOLE/TRIMETHOPRIM 15 ML in IV D5W 250 ML IV SCH (20:15)
[2016-03-04] MEDS: ATORVASTATIN 10 MG TABLET GT SCH (20:16)
[2016-03-04] MEDS: SENNOSIDES 8.6 MG TABLET GT SCH (20:16)
[2016-03-05] VITALS: BP 120/59
[2016-03-05] MEDS: IPRATROPIUM NEB FS 0.5 MG/2.5 ML AMPUL.NEB NEB SCH ×4 (00:12→19:58)
[2016-03-05] MEDS: HYDROMORPHONE 1 MG/1 ML DISP.SYRIN IV PRN (02:42)
[2016-03-05 04:00] VITALS: BP 137/56
[2016-03-05] MEDS: PANTOPRAZOLE 40 MG VIAL IV SCH ×2 (04:14→17:05)
[2016-03-05] MEDS: LEVOTHYROXINE SODIUM 50 MCG TABLET GT SCH (06:01)
[2016-03-05 08:00] VITALS: BP 144/71
[2016-03-05] MEDS: MIDODRINE HCL (5MG) 5 MG TABLET GT SCH ×3 (09:00→17:00)
[2016-03-05] MEDS: VIT B CMPLX 3/FA/VIT C/BIOTIN 1 TAB TABLET PO SCH (09:25)
[2016-03-05] MEDS: DOCUSATE SODIUM LIQ 100 MG/10 ML UDC GT SCH ×2 (09:25→17:05)
[2016-03-05] MEDS: LIDOCAINE 5% (PATCH) 1 EA PATCH TP SCH (09:27)
[2016-03-05 12:00] VITALS: BP 124/60
[2016-03-05] MEDS: BLOOD SUGAR DIAGNOSTIC 1 EACH STRIP IN SCH ×4 (12:00→23:08)
[2016-03-05] MEDS: POTASSIUM CL. PREMIX PERIPHER. 50 ML IV SCH ×4 (13:28→17:05)
[2016-03-05] MEDS ORDERED: SECONDARY IV SET 1 EA INFUS.SET MC ONE (13:28)
[2016-03-05 16:00] VITALS: BP 130/63
[2016-03-05] MEDS: QUETIAPINE FUMARATE 25 MG TABLET GT PRN (18:44)
[2016-03-05] MEDS: TRAMADOL HCL 50 MG TABLET GT PRN (18:44)
[2016-03-05 20:00] VITALS: BP_SYST 132; BP_SYST 140; BP_DIAS 63; BP_DIAS 65
[2016-03-05] MEDS: SULFAMETHOXAZOLE/TRIMETHOPRIM 15 ML in IV D5W 250 ML IV SCH (20:29)
[2016-03-05] MEDS: ATORVASTATIN 10 MG TABLET GT SCH (20:29)
[2016-03-05] MEDS: SENNOSIDES 8.6 MG TABLET GT SCH (20:30)
[2016-03-06] VITALS: BP 142/59
[2016-03-06] MEDS ORDERED: HYDROMORPHONE 1 MG/1 ML DISP.SYRIN ONE (00:33)
[2016-03-06] MEDS: HYDROMORPHONE 1 MG/1 ML DISP.SYRIN IV PRN ×3 (00:37→22:21)
[2016-03-06] MEDS: IPRATROPIUM NEB FS 0.5 MG/2.5 ML AMPUL.NEB NEB SCH ×4 (01:07→20:14)
[2016-03-06] MEDS: PANTOPRAZOLE 40 MG VIAL IV SCH ×2 (03:45→16:41)
[2016-03-06 04:00] VITALS: BP 152/64
[2016-03-06] MEDS: BLOOD SUGAR DIAGNOSTIC 1 EACH STRIP IN SCH ×3 (04:56→18:45)
[2016-03-06] MEDS: LEVOTHYROXINE SODIUM 50 MCG TABLET GT SCH (05:48)
[2016-03-06 06:22] LABS: BASOPHILS % (AUTO) 0.2 % (0.0-2.0); DIFF TOTAL % 100 %; EOSINOPHILS % (AUTO) 0.2 % (0.0-6.0); HEMATOCRIT 24 % (33-45); LYMPHOCYTES # (AUTO) 0.7 /CMM (0.8-4.8); LYMPHOCYTES % (AUTO) 11.9 % (20.0-44.0); MEAN CORPUSCULAR HEMOGLOBIN 29 PG (26.0-33.0); MEAN CORPUSCULAR HGB CONC 33 g/dl (31.0-36.0); MEAN CORPUSCULAR VOLUME 88 fL (82-100); MONOCYTES # (AUTO) 0.3 /CMM (0.1-1.30); MONOCYTES % (AUTO) 5.1 % (2.0-12.0); NEUTROPHILS # (AUTO) 4.5 /CMM (1.8-8.9); NEUTROPHILS % (AUTO) 82.6 % (43.0-81.0); PLATELET COUNT (AUTO) 75 /CMM (150-450); RED BLOOD CELL COUNT(AUTO) 2.78 MIL/uL (4.0-5.2); WHITE BLOOD COUNT (AUTO) 5.5 K/uL (4.3-11.0)
[2016-03-06 07:11] LABS: CALCIUM, SERUM 7.9 mg/dL (8.5-10.1); CREATININE 3.7 mg/dL (0.6-1.3); PHOSPHORUS 1.4 mg/dL (2.5-4.9); POTASSIUM 3.7 mmol/L (3.5-5.1)
[2016-03-06 08:00] VITALS: BP 138/74
[2016-03-06] MEDS: DOCUSATE SODIUM LIQ 100 MG/10 ML UDC GT SCH ×2 (08:47→16:41)
[2016-03-06] MEDS: LIDOCAINE 5% (PATCH) 1 EA PATCH TP SCH (08:47)
[2016-03-06] MEDS: VIT B CMPLX 3/FA/VIT C/BIOTIN 1 TAB TABLET PO SCH (08:47)
[2016-03-06] MEDS: TRAMADOL HCL 50 MG TABLET GT PRN ×2 (08:55→18:45)
[2016-03-06] MEDS: MIDODRINE HCL (5MG) 5 MG TABLET GT SCH ×3 (09:00→16:47)
[2016-03-06 12:00] VITALS: BP 161/79
[2016-03-06] MEDS ORDERED: hydrALAZINE HCL 25 MG TABLET GT PRN (12:30)
[2016-03-06] MEDS ORDERED: Magnesium 1GM/D5W 100ML PREMIX 100 ML IV SCH (13:00)
[2016-03-06] MEDS ORDERED: SECONDARY IV SET 1 EA INFUS.SET MC ONE ×2 (13:36→20:57)
[2016-03-06] MEDS ORDERED: NEUTRA PHOS 1 POWD.PACKET PO ONE (15:30)
[2016-03-06 16:00] VITALS: BP_SYST 150; BP_DIAS 67; BP_DIAS 72
[2016-03-06 20:00] VITALS: BP 132/48
[2016-03-06] MEDS: LINEZOLID RTU BAG 600 MG in PREMIX 1 EA IV SCH (20:57)
[2016-03-06] MEDS ORDERED: IV NS 0.9% 250 ML IV ONE (20:57)
[2016-03-06] MEDS: SENNOSIDES 8.6 MG TABLET GT SCH (21:07)
[2016-03-06] MEDS: ATORVASTATIN 10 MG TABLET GT SCH (21:07)
[2016-03-06] MEDS: SULFAMETHOXAZOLE/TRIMETHOPRIM 15 ML in IV D5W 250 ML IV SCH (21:30)
[2016-03-07] VITALS: BP 147/54
[2016-03-07] MEDS: BLOOD SUGAR DIAGNOSTIC 1 EACH STRIP IN SCH ×5 (00:50→23:30)
[2016-03-07] MEDS: INSULIN REGULAR, HUMAN 100 UNIT/ML 3 ML VIAL SQ PRN (00:52)
[2016-03-07] MEDS: IPRATROPIUM NEB FS 0.5 MG/2.5 ML AMPUL.NEB NEB SCH ×4 (01:37→19:52)
[2016-03-07 04:00] VITALS: BP 149/56
[2016-03-07] MEDS: PANTOPRAZOLE 40 MG VIAL IV SCH ×2 (06:10→18:23)
[2016-03-07] MEDS: LEVOTHYROXINE SODIUM 50 MCG TABLET GT SCH (06:10)
[2016-03-07 08:00] VITALS: BP 123/51
[2016-03-07] MEDS: VIT B CMPLX 3/FA/VIT C/BIOTIN 1 TAB TABLET PO SCH (08:27)
[2016-03-07] MEDS: DOCUSATE SODIUM LIQ 100 MG/10 ML UDC GT SCH ×2 (08:27→18:25)
[2016-03-07] MEDS: MIDODRINE HCL (5MG) 5 MG TABLET GT SCH ×3 (08:30→18:24)
[2016-03-07] MEDS: LIDOCAINE 5% (PATCH) 1 EA PATCH TP SCH (08:34)
[2016-03-07] MEDS: LINEZOLID RTU BAG 600 MG in PREMIX 1 EA IV SCH ×2 (08:34→21:54)
[2016-03-07 09:29] LABS: CREATININE 4.3 mg/dL (0.6-1.3); POTASSIUM 4.2 mmol/L (3.5-5.1)
[2016-03-07 12:00] VITALS: BP 131/51
[2016-03-07] MEDS: ONDANSETRON HCL/PF 4 MG/2 ML VIAL IV PRN ×2 (13:43→21:54)
[2016-03-07] MEDS: TRAMADOL HCL 50 MG TABLET GT PRN (14:39)
[2016-03-07 16:00] VITALS: BP 127/60
[2016-03-07 20:00] VITALS: BP 146/45
[2016-03-07] MEDS ORDERED: IV SET PRIMARY PUMP SET 1 EA INFUS.SET MC ONE (20:43)
[2016-03-07] MEDS: SULFAMETHOXAZOLE/TRIMETHOPRIM 15 ML in IV D5W 250 ML IV SCH (20:47)
[2016-03-07] MEDS: ATORVASTATIN 10 MG TABLET GT SCH (21:53)
[2016-03-07] MEDS: SENNOSIDES 8.6 MG TABLET GT SCH (21:54)
[2016-03-07] MEDS ORDERED: IV NS 0.9% 250 ML IV ONE (23:47)
[2016-03-07] MEDS: HYDROMORPHONE 1 MG/1 ML DISP.SYRIN IV PRN (23:54)
[2016-03-08] VITALS: BP 146/54
[2016-03-08] MEDS: IPRATROPIUM NEB FS 0.5 MG/2.5 ML AMPUL.NEB NEB SCH ×4 (01:33→20:15)
[2016-03-08 04:00] VITALS: BP_SYST 127; BP_SYST 140; BP_DIAS 55; BP_DIAS 85
[2016-03-08] MEDS: PANTOPRAZOLE 40 MG VIAL IV SCH ×2 (05:25→17:19)
[2016-03-08] MEDS: BLOOD SUGAR DIAGNOSTIC 1 EACH STRIP IN SCH ×3 (05:25→17:20)
[2016-03-08] MEDS: LEVOTHYROXINE SODIUM 50 MCG TABLET GT SCH (05:34)
[2016-03-08 07:11] LABS: CALCIUM, SERUM 8.1 mg/dL (8.5-10.1); CREATININE 4.5 mg/dL (0.6-1.3); POTASSIUM 4.5 mmol/L (3.5-5.1)
[2016-03-08] MEDS ORDERED: HEPARIN SODIUM, PORCINE 1000 UNIT/1 ML VIAL IV ONE (07:30)
[2016-03-08 08:00] VITALS: BP 143/67
[2016-03-08] MEDS: MIDODRINE HCL (5MG) 5 MG TABLET GT SCH ×3 (09:00→17:00)
[2016-03-08] MEDS: VIT B CMPLX 3/FA/VIT C/BIOTIN 1 TAB TABLET PO SCH (09:41)
[2016-03-08] MEDS: DOCUSATE SODIUM LIQ 100 MG/10 ML UDC GT SCH ×2 (09:41→17:19)
[2016-03-08] MEDS: ONDANSETRON HCL/PF 4 MG/2 ML VIAL IV PRN (09:41)
[2016-03-08] MEDS: LINEZOLID RTU BAG 600 MG in PREMIX 1 EA IV SCH (09:41)
[2016-03-08] MEDS: LIDOCAINE 5% (PATCH) 1 EA PATCH TP SCH (09:42)
[2016-03-08 12:00] VITALS: BP 135/75
[2016-03-08 16:00] VITALS: BP 138/67
[2016-03-08] MEDS ORDERED: IV SET PRIMARY PUMP SET 1 EA INFUS.SET MC ONE (19:34)
[2016-03-08 20:00] VITALS: BP 141/56
[2016-03-08] MEDS: SULFAMETHOXAZOLE/TRIMETHOPRIM 15 ML in IV D5W 250 ML IV SCH (20:56)
[2016-03-08] MEDS: LINEZOLID 600 MG TABLET GT SCH (20:56)
[2016-03-08] MEDS: SENNOSIDES 8.6 MG TABLET GT SCH (20:56)
[2016-03-08] MEDS: ATORVASTATIN 10 MG TABLET GT SCH (20:56)
[2016-03-08] MEDS: RENAL NOVASOURCE 1,000 ML BOTTLE GT PRN (20:57)
[2016-03-08] MEDS: QUETIAPINE FUMARATE 25 MG TABLET GT PRN (22:21)
[2016-03-08] MEDS: HYDROMORPHONE 1 MG/1 ML DISP.SYRIN IV PRN (22:21)
[2016-03-09] VITALS (7 sets, daily range): BP systolic 129–150; BP diastolic 45–60
[2016-03-09] MEDS: BLOOD SUGAR DIAGNOSTIC 1 EACH STRIP IN SCH ×4 (00:25→18:18)
[2016-03-09] MEDS: IPRATROPIUM NEB FS 0.5 MG/2.5 ML AMPUL.NEB NEB SCH ×4 (01:22→19:21)
[2016-03-09] MEDS: PANTOPRAZOLE 40 MG VIAL IV SCH ×2 (05:24→17:22)
[2016-03-09] MEDS: LEVOTHYROXINE SODIUM 50 MCG TABLET GT SCH (05:26)
[2016-03-09 07:08] LABS: CALCIUM, SERUM 8.1 mg/dL (8.5-10.1); CREATININE 5.1 mg/dL (0.6-1.3); POTASSIUM 4.5 mmol/L (3.5-5.1)
[2016-03-09] MEDS: MIDODRINE HCL (5MG) 5 MG TABLET GT SCH (09:00)
[2016-03-09] MEDS: VIT B CMPLX 3/FA/VIT C/BIOTIN 1 TAB TABLET PO SCH (10:11)
[2016-03-09] MEDS: DOCUSATE SODIUM LIQ 100 MG/10 ML UDC GT SCH ×2 (10:11→17:22)
[2016-03-09] MEDS: LINEZOLID 600 MG TABLET GT SCH ×2 (10:11→20:30)
[2016-03-09] MEDS: LIDOCAINE 5% (PATCH) 1 EA PATCH TP SCH (10:15)
[2016-03-09] MEDS: TRAMADOL HCL 50 MG TABLET GT PRN (10:16)
[2016-03-09] MEDS: RENAL NOVASOURCE 1,000 ML BOTTLE GT PRN (20:26)
[2016-03-09] MEDS: SULFAMETHOXAZOLE/TRIMETHOPRIM 15 ML in IV D5W 250 ML IV SCH (20:41)
[2016-03-09] MEDS: SENNOSIDES 8.6 MG TABLET GT SCH (21:15)
[2016-03-09] MEDS: ATORVASTATIN 10 MG TABLET GT SCH (21:15)
[2016-03-10] VITALS: BP 124/46
[2016-03-10] MEDS: BLOOD SUGAR DIAGNOSTIC 1 EACH STRIP IN SCH ×5 (00:45→23:58)
[2016-03-10] MEDS: HYDROMORPHONE 1 MG/1 ML DISP.SYRIN IV PRN ×3 (01:07→14:51)
[2016-03-10] MEDS: IPRATROPIUM NEB FS 0.5 MG/2.5 ML AMPUL.NEB NEB SCH ×4 (01:23→20:23)
[2016-03-10 04:00] VITALS: BP 129/40
[2016-03-10] MEDS: LEVOTHYROXINE SODIUM 50 MCG TABLET GT SCH (05:36)
[2016-03-10] MEDS: PANTOPRAZOLE 40 MG VIAL IV SCH ×2 (05:36→17:24)
[2016-03-10 07:16] LABS: CALCIUM, SERUM 9.6 mg/dL (8.5-10.1); CREATININE 3.5 mg/dL (0.6-1.3)
[2016-03-10 08:00] VITALS: BP 124/46
[2016-03-10] MEDS: SIMETHICONE 80 MG TAB.CHEW GT PRN (08:22)
[2016-03-10] MEDS: LINEZOLID 600 MG TABLET GT SCH ×2 (08:22→21:05)
[2016-03-10] MEDS: VIT B CMPLX 3/FA/VIT C/BIOTIN 1 TAB TABLET PO SCH (08:22)
[2016-03-10] MEDS: LIDOCAINE 5% (PATCH) 1 EA PATCH TP SCH (08:22)
[2016-03-10] MEDS: DOCUSATE SODIUM LIQ 100 MG/10 ML UDC GT SCH ×2 (08:22→17:00)
[2016-03-10] MEDS: INSULIN REGULAR, HUMAN 100 UNIT/ML 3 ML VIAL SQ PRN ×3 (11:38→17:27)
[2016-03-10 12:00] VITALS: BP 133/52
[2016-03-10 16:00] VITALS: BP 123/59
[2016-03-10 20:00] VITALS: BP 141/46
[2016-03-10] MEDS ORDERED: IV NS 0.9% 250 ML IV ONE (20:48)
[2016-03-10] MEDS: SULFAMETHOXAZOLE/TRIMETHOPRIM 15 ML in IV D5W 250 ML IV SCH (20:55)
[2016-03-10] MEDS: RENAL NOVASOURCE 1,000 ML BOTTLE GT PRN (20:55)
[2016-03-10] MEDS: TRAMADOL HCL 50 MG TABLET GT PRN (21:05)
[2016-03-10] MEDS: SENNOSIDES 8.6 MG TABLET GT SCH (21:05)
[2016-03-10] MEDS: ATORVASTATIN 10 MG TABLET GT SCH (21:05)
[2016-03-11] VITALS: BP 144/41
[2016-03-11] MEDS ORDERED: IV NS 0.9% 250 ML IV ONE (00:03)
[2016-03-11] MEDS ORDERED: SECONDARY IV SET 1 EA INFUS.SET MC ONE (00:03)
[2016-03-11] MEDS: IPRATROPIUM NEB FS 0.5 MG/2.5 ML AMPUL.NEB NEB SCH ×4 (01:29→19:51)
[2016-03-11] MEDS: HYDROMORPHONE 1 MG/1 ML DISP.SYRIN IV PRN ×2 (02:29→18:09)
[2016-03-11 04:00] VITALS: BP 133/43
[2016-03-11] MEDS: PANTOPRAZOLE 40 MG VIAL IV SCH ×2 (05:19→17:28)
[2016-03-11] MEDS: BLOOD SUGAR DIAGNOSTIC 1 EACH STRIP IN SCH ×3 (05:24→17:28)
[2016-03-11] MEDS: INSULIN REGULAR, HUMAN 100 UNIT/ML 3 ML VIAL SQ PRN ×2 (05:25→17:43)
[2016-03-11] MEDS: LEVOTHYROXINE SODIUM 50 MCG TABLET GT SCH (06:44)
[2016-03-11 06:59] LABS: BASOPHILS % (AUTO) 0.2 % (0.0-2.0); DIFF TOTAL % 100 %; HEMATOCRIT 23 % (33-45); HEMOGLOBIN 7.5 g/dL (11.5-14.8); LYMPHOCYTES % (AUTO) 15.3 % (20.0-44.0); MEAN CORPUSCULAR HEMOGLOBIN 30 PG (26.0-33.0); MEAN CORPUSCULAR HGB CONC 32 g/dl (31.0-36.0); MEAN CORPUSCULAR VOLUME 92 fL (82-100); MONOCYTES # (AUTO) 0.4 /CMM (0.1-1.30); MONOCYTES % (AUTO) 5.7 % (2.0-12.0); NEUTROPHILS % (AUTO) 78.8 % (43.0-81.0); PLATELET COUNT (AUTO) 81 /CMM (150-450); RED BLOOD CELL COUNT(AUTO) 2.54 MIL/uL (4.0-5.2); WHITE BLOOD COUNT (AUTO) 6.4 K/uL (4.3-11.0)
[2016-03-11 07:14] LABS: CALCIUM, SERUM 9.4 mg/dL (8.5-10.1); CREATININE 3.9 mg/dL (0.6-1.3); PHOSPHORUS 4.2 mg/dL (2.5-4.9); POTASSIUM 4.1 mmol/L (3.5-5.1)
[2016-03-11 08:00] VITALS: BP 118/52
[2016-03-11 08:57] LABS: ANISOCYTOSIS 1+; BAND % (MANUAL) 2 % (0.0-5.0); EOSINOPHILS % (MANUAL) 1 % (0-4); LYMPHOCYTES % (MANUAL) 16 % (16-48); PLATELET ESTIMATE DECREASED
[2016-03-11 08:58] LABS: SPHEROCYTES 1+
[2016-03-11] MEDS: LIDOCAINE 5% (PATCH) 1 EA PATCH TP SCH (09:14)
[2016-03-11] MEDS: LINEZOLID 600 MG TABLET GT SCH ×2 (09:14→21:10)
[2016-03-11] MEDS: VIT B CMPLX 3/FA/VIT C/BIOTIN 1 TAB TABLET PO SCH (09:14)
[2016-03-11] MEDS: DOCUSATE SODIUM LIQ 100 MG/10 ML UDC GT SCH ×2 (09:14→17:28)
[2016-03-11 16:00] VITALS: BP_SYST 121; BP_SYST 126; BP_DIAS 51; BP_DIAS 56
[2016-03-11 20:00] VITALS: BP 129/47
[2016-03-11] MEDS: SULFAMETHOXAZOLE/TRIMETHOPRIM 15 ML in IV D5W 250 ML IV SCH (20:00)
[2016-03-11] MEDS: SENNOSIDES 8.6 MG TABLET GT SCH (21:10)
[2016-03-11] MEDS: ATORVASTATIN 10 MG TABLET GT SCH (21:10)
[2016-03-12] MEDS: BLOOD SUGAR DIAGNOSTIC 1 EACH STRIP IN SCH ×4 (00:24→17:08)
[2016-03-12] MEDS: RENAL NOVASOURCE 1,000 ML BOTTLE GT PRN ×2 (00:25→21:23)
[2016-03-12] MEDS: INSULIN REGULAR, HUMAN 100 UNIT/ML 3 ML VIAL SQ PRN ×3 (00:31→17:11)
[2016-03-12] MEDS: IPRATROPIUM NEB FS 0.5 MG/2.5 ML AMPUL.NEB NEB SCH ×4 (01:27→20:09)
[2016-03-12 04:00] VITALS: BP 116/39
[2016-03-12] MEDS: PANTOPRAZOLE 40 MG VIAL IV SCH ×2 (04:17→16:40)
[2016-03-12] MEDS ORDERED: IV NS 0.9% 250 ML IV ONE (04:44)
[2016-03-12] MEDS: LEVOTHYROXINE SODIUM 50 MCG TABLET GT SCH (05:30)
[2016-03-12 08:00] VITALS: BP 113/36
[2016-03-12] MEDS: LIDOCAINE 5% (PATCH) 1 EA PATCH TP SCH (09:32)
[2016-03-12] MEDS: VIT B CMPLX 3/FA/VIT C/BIOTIN 1 TAB TABLET PO SCH (09:32)
[2016-03-12] MEDS: LINEZOLID 600 MG TABLET GT SCH ×2 (09:32→21:24)
[2016-03-12] MEDS: DOCUSATE SODIUM LIQ 100 MG/10 ML UDC GT SCH ×2 (09:32→16:40)
[2016-03-12] MEDS ORDERED: FEE PK DOSING 1 MIN EA MC ONE (15:32)
[2016-03-12] MEDS ORDERED: SECONDARY IV SET 1 EA INFUS.SET MC ONE (15:41)
[2016-03-12] MEDS: HYDROMORPHONE 1 MG/1 ML DISP.SYRIN IV PRN (15:44)
[2016-03-12 16:00] VITALS: BP_SYST 119; BP_SYST 127; BP_DIAS 39; BP_DIAS 80
[2016-03-12] MEDS ORDERED: GENTAMICIN 120 MG in IV D5W 100 ML IV ONE (16:00)
[2016-03-12 20:00] VITALS: BP 117/34
[2016-03-12] MEDS: SULFAMETHOXAZOLE/TRIMETHOPRIM 15 ML in IV D5W 250 ML IV SCH (20:00)
[2016-03-12] MEDS: ATORVASTATIN 10 MG TABLET GT SCH (21:24)
[2016-03-12] MEDS: SENNOSIDES 8.6 MG TABLET GT SCH (21:24)
[2016-03-13] MEDS: BLOOD SUGAR DIAGNOSTIC 1 EACH STRIP IN SCH ×3 (00:11→11:42)
[2016-03-13] MEDS: HYDROMORPHONE 1 MG/1 ML DISP.SYRIN IV PRN ×3 (00:33→11:42)
[2016-03-13] MEDS: IPRATROPIUM NEB FS 0.5 MG/2.5 ML AMPUL.NEB NEB SCH ×4 (01:17→19:45)
[2016-03-13] MEDS ORDERED: IV SET PRIMARY PUMP SET 1 EA INFUS.SET MC ONE (02:29)
[2016-03-13 04:00] VITALS: BP 111/48
[2016-03-13] MEDS ORDERED: IV NS 0.9% 250 ML IV ONE (04:09)
[2016-03-13] MEDS: PANTOPRAZOLE 40 MG VIAL IV SCH ×2 (04:33→16:25)
[2016-03-13] MEDS: LEVOTHYROXINE SODIUM 50 MCG TABLET GT SCH (06:02)
[2016-03-13] MEDS: INSULIN REGULAR, HUMAN 100 UNIT/ML 3 ML VIAL SQ PRN (06:21)
[2016-03-13 07:29] LABS: BASOPHILS % (AUTO) 0.2 % (0.0-2.0); DIFF TOTAL % 100 %; EOSINOPHILS % (AUTO) 0.7 % (0.0-6.0); LYMPHOCYTES # (AUTO) 0.6 /CMM (0.8-4.8); LYMPHOCYTES % (AUTO) 11.4 % (20.0-44.0); MEAN CORPUSCULAR HEMOGLOBIN 29 PG (26.0-33.0); MEAN CORPUSCULAR HGB CONC 33 g/dl (31.0-36.0); MEAN CORPUSCULAR VOLUME 89 fL (82-100); MONOCYTES # (AUTO) 0.2 /CMM (0.1-1.30); MONOCYTES % (AUTO) 3.5 % (2.0-12.0); NEUTROPHILS # (AUTO) 4.3 /CMM (1.8-8.9); NEUTROPHILS % (AUTO) 84.2 % (43.0-81.0); PLATELET COUNT (AUTO) 60 /CMM (150-450); WHITE BLOOD COUNT (AUTO) 5.1 K/uL (4.3-11.0)
[2016-03-13 07:38] LABS: CALCIUM, SERUM 8.2 mg/dL (8.5-10.1); CREATININE 3.7 mg/dL (0.6-1.3); HEMATOCRIT 19 % (33-45); HEMOGLOBIN 6.2 g/dL (11.5-14.8); POTASSIUM 3.6 mmol/L (3.5-5.1)
[2016-03-13 07:42] LABS: PHOSPHORUS 2.7 mg/dL (2.5-4.9)
[2016-03-13 08:00] VITALS: BP 93/53
[2016-03-13] MEDS: DOCUSATE SODIUM LIQ 100 MG/10 ML UDC GT SCH ×2 (09:25→16:25)
[2016-03-13] MEDS: VIT B CMPLX 3/FA/VIT C/BIOTIN 1 TAB TABLET PO SCH (09:25)
[2016-03-13] MEDS: LINEZOLID 600 MG TABLET GT SCH ×2 (09:25→20:54)
[2016-03-13] MEDS: LIDOCAINE 5% (PATCH) 1 EA PATCH TP SCH (09:25)
[2016-03-13 10:21] LABS: BAND % (MANUAL) 1 % (0.0-5.0); LYMPHOCYTES % (MANUAL) 5 % (16-48)
[2016-03-13 10:22] LABS: PLATELET ESTIMATE DECREASED
[2016-03-13 10:23] LABS: ANISOCYTOSIS 2+
[2016-03-13 10:24] LABS: STOMATOCYTES 1+
[2016-03-13 15:14] LABS: BASOPHILS % (AUTO) 0.9 % (0.0-2.0); DIFF TOTAL % 100 %; EOSINOPHILS % (AUTO) 0.2 % (0.0-6.0); LYMPHOCYTES # (AUTO) 0.7 /CMM (0.8-4.8); LYMPHOCYTES % (AUTO) 13.2 % (20.0-44.0); MEAN CORPUSCULAR HEMOGLOBIN 29 PG (26.0-33.0); MEAN CORPUSCULAR HGB CONC 32 g/dl (31.0-36.0); MEAN CORPUSCULAR VOLUME 89 fL (82-100); MONOCYTES # (AUTO) 0.2 /CMM (0.1-1.30); MONOCYTES % (AUTO) 3.5 % (2.0-12.0); NEUTROPHILS # (AUTO) 4.3 /CMM (1.8-8.9); NEUTROPHILS % (AUTO) 82.2 % (43.0-81.0); PLATELET COUNT (AUTO) 58 /CMM (150-450); RED BLOOD CELL COUNT(AUTO) 2.28 MIL/uL (4.0-5.2); WHITE BLOOD COUNT (AUTO) 5.2 K/uL (4.3-11.0)
[2016-03-13] MEDS ORDERED: GENTAMICIN 80 MG in IV D5W 50 ML IV PRN (15:30)
[2016-03-13 16:00] VITALS: BP 96/50
[2016-03-13] MEDS: SIMETHICONE 80 MG TAB.CHEW GT PRN (16:25)
[2016-03-13 16:41] LABS: HEMATOCRIT 20 % (33-45); HEMOGLOBIN 6.5 g/dL (11.5-14.8)
[2016-03-13 16:48] LABS: ANISOCYTOSIS 1+; BAND % (MANUAL) 5 % (0.0-5.0); EOSINOPHILS % (MANUAL) 1 % (0-4); LYMPHOCYTES % (MANUAL) 16 % (16-48); MICROCYTOSIS 1+; PLATELET ESTIMATE DECREASED
[2016-03-13 20:00] VITALS: BP 120/60
[2016-03-13] MEDS: SULFAMETHOXAZOLE/TRIMETHOPRIM 15 ML in IV D5W 250 ML IV SCH (20:44)
[2016-03-13] MEDS: ATORVASTATIN 10 MG TABLET GT SCH (21:00)
[2016-03-13] MEDS: SENNOSIDES 8.6 MG TABLET GT SCH (21:00)
[2016-03-14] VITALS (9 sets, daily range): BP systolic 104–143; BP diastolic 57–72
[2016-03-14] MEDS: IPRATROPIUM NEB FS 0.5 MG/2.5 ML AMPUL.NEB NEB SCH ×4 (01:50→19:21)
[2016-03-14] MEDS: PANTOPRAZOLE 40 MG VIAL IV SCH ×2 (05:29→15:41)
[2016-03-14] MEDS: LEVOTHYROXINE SODIUM 50 MCG TABLET GT SCH (05:30)
[2016-03-14] MEDS: RENAL NOVASOURCE 1,000 ML BOTTLE GT PRN (05:31)
[2016-03-14 06:32] LABS: CALCIUM, SERUM 8.3 mg/dL (8.5-10.1); CREATININE 2.9 mg/dL (0.6-1.3); PHOSPHORUS 2.4 mg/dL (2.5-4.9); POTASSIUM 3.7 mmol/L (3.5-5.1)
[2016-03-14 07:37] LABS: BASOPHILS % (AUTO) 0.7 % (0.0-2.0); DIFF TOTAL % 100 %; HEMATOCRIT 22 % (33-45); HEMOGLOBIN 7.2 g/dL (11.5-14.8); LYMPHOCYTES # (AUTO) 0.7 /CMM (0.8-4.8); LYMPHOCYTES % (AUTO) 10.4 % (20.0-44.0); MEAN CORPUSCULAR HEMOGLOBIN 30 PG (26.0-33.0); MEAN CORPUSCULAR HGB CONC 33 g/dl (31.0-36.0); MEAN CORPUSCULAR VOLUME 89 fL (82-100); MONOCYTES # (AUTO) 0.2 /CMM (0.1-1.30); MONOCYTES % (AUTO) 2.5 % (2.0-12.0); NEUTROPHILS # (AUTO) 5.4 /CMM (1.8-8.9); NEUTROPHILS % (AUTO) 86.4 % (43.0-81.0); PLATELET COUNT (AUTO) 62 /CMM (150-450); RED BLOOD CELL COUNT(AUTO) 2.44 MIL/uL (4.0-5.2); WHITE BLOOD COUNT (AUTO) 6.3 K/uL (4.3-11.0)
[2016-03-14] MEDS: LINEZOLID 600 MG TABLET GT SCH (08:44)
[2016-03-14] MEDS: DOCUSATE SODIUM LIQ 100 MG/10 ML UDC GT SCH ×2 (08:44→17:00)
[2016-03-14] MEDS: LIDOCAINE 5% (PATCH) 1 EA PATCH TP SCH (08:52)
[2016-03-14] MEDS: VIT B CMPLX 3/FA/VIT C/BIOTIN 1 TAB TABLET PO SCH (08:52)
[2016-03-14] MEDS: TRAMADOL HCL 50 MG TABLET GT PRN ×3 (09:14→21:04)
[2016-03-14] MEDS ORDERED: SECONDARY IV SET 1 EA INFUS.SET MC ONE (09:57)
[2016-03-14] MEDS: DAPTOMYCIN 500 MG in IV NS 0.9% 50 ML IV SCH (10:00)
[2016-03-14 11:12] LABS: ANISOCYTOSIS 1+; BAND % (MANUAL) 3 % (0.0-5.0); LYMPHOCYTES % (MANUAL) 14 % (16-48); PLATELET ESTIMATE DECREASED
[2016-03-14] MEDS: SIMETHICONE 80 MG TAB.CHEW GT PRN (11:37)
[2016-03-14] MEDS ORDERED: NEUTRA PHOS 1 POWD.PACKET GT ONE (16:00)
[2016-03-14] MEDS ORDERED: HEPARIN SODIUM, PORCINE 1,000 UNIT/ML VIAL ONE (16:34)
[2016-03-14] MEDS ORDERED: LIDOCAINE HCL/PF 1% 30 ML SDV ONE (16:34)
[2016-03-14] MEDS: SENNOSIDES 8.6 MG TABLET GT SCH (21:04)
[2016-03-14] MEDS ORDERED: ATORVASTATIN 10 MG TABLET GT SCH (22:00)
[2016-03-14] MEDS: ONDANSETRON HCL/PF 4 MG/2 ML VIAL IV PRN (22:36)
[2016-03-14] MEDS ORDERED: BLOOD IV SET 1 EA INFUS.SET MC ONE (22:51)
[2016-03-14] MEDS ORDERED: IV NS 0.9% 250 ML IV ONE (22:51)
[2016-03-15] MEDS: SULFAMETHOXAZOLE/TRIMETHOPRIM 15 ML in IV D5W 250 ML IV SCH ×2 (00:54→20:10)
[2016-03-15] MEDS: IPRATROPIUM NEB FS 0.5 MG/2.5 ML AMPUL.NEB NEB SCH ×4 (01:20→20:09)
[2016-03-15 04:00] VITALS: BP 125/56
[2016-03-15] MEDS: PANTOPRAZOLE 40 MG VIAL IV SCH ×2 (05:17→16:54)
[2016-03-15] MEDS: LEVOTHYROXINE SODIUM 50 MCG TABLET GT SCH (05:35)
[2016-03-15 07:38] LABS: CALCIUM, SERUM 8.1 mg/dL (8.5-10.1); CREATININE 2.6 mg/dL (0.6-1.3); PHOSPHORUS 3.1 mg/dL (2.5-4.9); POTASSIUM 3.9 mmol/L (3.5-5.1)
[2016-03-15 08:00] VITALS: BP 124/62
[2016-03-15] MEDS ORDERED: SECONDARY IV SET 1 EA INFUS.SET MC ONE (08:04)
[2016-03-15] MEDS: VIT B CMPLX 3/FA/VIT C/BIOTIN 1 TAB TABLET PO SCH (08:25)
[2016-03-15] MEDS: DOCUSATE SODIUM LIQ 100 MG/10 ML UDC GT SCH ×2 (08:25→16:54)
[2016-03-15] MEDS: LIDOCAINE 5% (PATCH) 1 EA PATCH TP SCH (08:26)
[2016-03-15] MEDS: TRAMADOL HCL 50 MG TABLET GT PRN (11:35)
[2016-03-15 12:00] VITALS: BP 123/67
[2016-03-15 16:00] VITALS: BP 113/68
[2016-03-15] MEDS ORDERED: DIGOXIN INJ 0.5 MG/2 ML AMPUL IV ONE (17:30)
[2016-03-15 20:00] VITALS: BP 132/61
[2016-03-15] MEDS ORDERED: IV NS 0.9% 250 ML IV ONE (20:01)
[2016-03-15] MEDS: HYDROMORPHONE 1 MG/1 ML DISP.SYRIN IV PRN (20:11)
[2016-03-15] MEDS: SENNOSIDES 8.6 MG TABLET GT SCH (21:31)
[2016-03-16] VITALS: BP 132/77
[2016-03-16] MEDS: IPRATROPIUM NEB FS 0.5 MG/2.5 ML AMPUL.NEB NEB SCH ×3 (01:15→14:14)
[2016-03-16 04:00] VITALS: BP 125/69
[2016-03-16] MEDS: HYDROMORPHONE 1 MG/1 ML DISP.SYRIN IV PRN ×2 (04:12→10:04)
[2016-03-16] MEDS: PANTOPRAZOLE 40 MG VIAL IV SCH (04:12)
[2016-03-16] MEDS: LEVOTHYROXINE SODIUM 50 MCG TABLET GT SCH (06:23)
[2016-03-16 06:28] LABS: CALCIUM, SERUM 8.2 mg/dL (8.5-10.1); CREATININE 3.1 mg/dL (0.6-1.3); POTASSIUM 4.2 mmol/L (3.5-5.1)
[2016-03-16 08:00] VITALS: BP 132/61
[2016-03-16] MEDS: DOCUSATE SODIUM LIQ 100 MG/10 ML UDC GT SCH (09:15)
[2016-03-16] MEDS: VIT B CMPLX 3/FA/VIT C/BIOTIN 1 TAB TABLET PO SCH (09:15)
[2016-03-16] MEDS: LIDOCAINE 5% (PATCH) 1 EA PATCH TP SCH (09:15)
[2016-03-16] MEDS: DAPTOMYCIN 500 MG in IV NS 0.9% 50 ML IV SCH (10:04)
[2016-03-16 12:01] VITALS: BP 129/62
[2016-03-16 12:02] VITALS: BP 129/60
[2016-03-16] MEDS ORDERED: DIGOXIN INJ 0.5 MG/2 ML AMPUL IV SCH (13:00)
[2016-03-16 16:00] VITALS: BP 118/56
== END 2016-03-16 17:45 | DRG 952 ==
LOC: ER 09:40 → ICU 14:19 → TELE-TD 02-17 21:30 → TELE1 02-20 18:15 → MEDSG1 03-11 08:47 → TELE1 03-15 13:23
PROVIDERS: ADMIT Internal Medicine; ATTEND Internal Medicine
PROC: 5A1D60Z (ICD-10-PCS; principal; 2016-02-16)
PROC: 05H533Z Insertion of Infusion Device into Right Subclavian Vein, Percutaneous Approach (ICD-10-PCS; 2016-02-19)
PROC: 5A1955Z Respiratory Ventilation, Greater than 96 Consecutive Hours (ICD-10-PCS; 2016-02-21)
PROC: 30233P1 Transfusion of Nonautologous Frozen Red Cells into Peripheral Vein, Percutaneous Approach (ICD-10-PCS; 2016-02-25)
PROC: 0W9G3ZX Drainage of Peritoneal Cavity, Percutaneous Approach, Diagnostic (ICD-10-PCS; 2016-02-26)
PROC: 05H633Z Insertion of Infusion Device into Left Subclavian Vein, Percutaneous Approach (ICD-10-PCS; 2016-03-04)
DX: T82.7XXA Infection and inflammatory reaction due to other cardiac and vascular devices, implants and grafts, initial encounter (principal); A41.52 Sepsis due to Pseudomonas; R65.21 Severe sepsis with septic shock; K65.1 Peritoneal abscess; G93.40 Encephalopathy, unspecified; J96.10 Chronic respiratory failure, unspecified whether with hypoxia or hypercapnia; K55.9 Vascular disorder of intestine, unspecified; N18.6 End stage renal disease; I12.0 Hypertensive chronic kidney disease with stage 5 chronic kidney disease or end stage renal disease; K56.60 Unspecified intestinal obstruction; Z93.0 Tracheostomy status; I48.0 Paroxysmal atrial fibrillation; E11.22 Type 2 diabetes mellitus with diabetic chronic kidney disease; R13.10 Dysphagia, unspecified; Z99.2 Dependence on renal dialysis; E11.649 Type 2 diabetes mellitus with hypoglycemia without coma; E11.43 Type 2 diabetes mellitus with diabetic autonomic (poly)neuropathy; Z85.3 Personal history of malignant neoplasm of breast; Z90.49 Acquired absence of other specified parts of digestive tract; Z82.49 Family history of ischemic heart disease and other diseases of the circulatory system; Z79.82 Long term (current) use of aspirin; Z93.1 Gastrostomy status; Z90.12 Acquired absence of left breast and nipple; I97.2 Postmastectomy lymphedema syndrome; Y83.9 Surgical procedure, unspecified as the cause of abnormal reaction of the patient, or of later complication, without mention of misadventure at the time of the procedure; Z98.890 Other specified postprocedural states; D63.1 Anemia in chronic kidney disease; Z79.01 Long term (current) use of anticoagulants; E66.01 Morbid (severe) obesity due to excess calories; E88.09 Other disorders of plasma-protein metabolism, not elsewhere classified; I25.10 Atherosclerotic heart disease of native coronary artery without angina pectoris; E83.9 Disorder of mineral metabolism, unspecified; D63.8 Anemia in other chronic diseases classified elsewhere; Z79.4 Long term (current) use of insulin; Y83.8 Other surgical procedures as the cause of abnormal reaction of the patient, or of later complication, without mention of misadventure at the time of the procedure
CPT/HCPCS: 31720; 36415; 36600; 71010-TC; 72192-TC; 72195-TC; 74150-TC; 74181-TC; 74250-TC; 75989; 75989-TC; 78802-TC; 80048-TC; 80053-TC; 80074; 80076-TC; 80170-TC; 80202-TC; 82040-TC; 82553-TC; 82565-TC; 82947-TC; 82962-TC; 83540-TC; 83605-TC; 83690-TC; 83735-TC; 84100-TC; 84132-TC; 84484-TC; 85025-TC; 85610-TC; 85730-TC; 86850-TC; 86921-TC; 87040-TC; 87070-TC; 87081-TC; 87186-TC; 88305-TC; 88312-TC; 90935-TC; 94002-TC; 94003-TC; 94640-TC; 94760-TC; 94799-TC; 99082-TC; A4216; A4606; A4623; A6248; A6402; A6403; A7526; A9556; C1750; C1757; C9113; J0692; J0770; J0878; J0885; J1160; J1170; J1580; J1644; J1815; J1956; J2020; J2185; J2250; J2310; J2405; J3010; J3370; J3475; J3480; J3490; J7030; J7040; J7042; J7050; J7060; J8597; P9016-BL; P9047; Q9963; Z7610

== ENCOUNTER 2016-03-16 18:50 | Inpatient (IN) | payer MEDICARE, OTHER ==
[~2016-03-16 18:50] MED LIST changes: +AMIN30LI2 NG; -ASPI81TA2 GT; +DOCU50LI NG; +LACT10SO29 GT; -LOPE2CAP GT; +ONDA4TAB5 NG; +SENN8.6T6 NG; +SIME80TA15 GT; -ZINC220C6 GT
[2016-03-16] MEDS ORDERED: DOSE PER PHARMACY (MD SPECIFY MEDICATION) 1 EA XX PRN (19:30)
[2016-03-16] MEDS ORDERED: METOCLOPRAMIDE HCL 5 MG/5 ML UDC GT PRN (19:35)
[2016-03-16] MEDS ORDERED: BISACODYL SUPP (10 MG) 10 MG/SUPP.RECT SUPP.RECT RC PRN (19:35)
[2016-03-16] MEDS ORDERED: hydrALAZINE HCL 25 MG TABLET GT PRN (19:35)
[2016-03-16] MEDS ORDERED: DIGOXIN INJ 0.5 MG/2 ML AMPUL IV SCH (19:35)
[2016-03-16] MEDS ORDERED: RENAL NOVASOURCE 1,000 ML BOTTLE GT PRN (19:35)
[2016-03-16] MEDS ORDERED: LEVOTHYROXINE SODIUM 50 MCG TABLET GT SCH (19:35)
[2016-03-16] MEDS ORDERED: LIDOCAINE 5% (PATCH) 1 EA PATCH TP SCH (19:35)
[2016-03-16] MEDS ORDERED: ONDANSETRON HCL/PF 4 MG/2 ML VIAL IV PRN (19:35)
[2016-03-16] MEDS ORDERED: DOCUSATE SODIUM LIQ 100 MG/10 ML UDC GT SCH (19:35)
[2016-03-16] MEDS ORDERED: SENNOSIDES 8.6 MG TABLET GT SCH (19:35)
[2016-03-16] MEDS ORDERED: POLYVINYL ALCOHOL 15 ML BOTTLE EACHEYE PRN (19:35)
[2016-03-16] MEDS ORDERED: IPRATROPIUM NEB FS 0.5 MG/2.5 ML AMPUL.NEB NEB SCH (19:35)
[2016-03-16] MEDS ORDERED: HYDROMORPHONE 1 MG/1 ML DISP.SYRIN IV PRN (19:35)
[2016-03-16] MEDS ORDERED: SIMETHICONE SUSP 40 MG/0.6 ML BOTTLE GT PRN (20:00)
[2016-03-16] MEDS ORDERED: HYDROGEN PEROXIDE 480 ML BOTTLE TP PRN (20:00)
[2016-03-16] MEDS ORDERED: TUBERCULIN,PURIF.PROT.DERIV. 5 TU/0.1 ML VIAL ID SCH (20:00)
[2016-03-16] MEDS ORDERED: ONDANSETRON 4 MG TAB.RAPDIS PO PRN (20:30)
[2016-03-16] MEDS ORDERED: ONDANSETRON 4 MG TAB.RAPDIS GT PRN (20:30)
[2016-03-16] MEDS: SULFAMETHOXAZOLE/TRIMETHOPRIM 15 ML in IV D5W 250 ML IV SCH (20:38)
[2016-03-16] MEDS: GENTAMICIN 80 MG in IV D5W 50 ML IV PRN (20:39)
[2016-03-16] MEDS: PANTOPRAZOLE 40 MG/PACK PACK GT SCH (21:00)
[2016-03-16] MEDS: HYDROGEN PEROXIDE 480 ML BOTTLE TP SCH (21:00)
[2016-03-16] MEDS: SENNOSIDES 8.6 MG TABLET GT SCH (21:00)
[2016-03-17] MEDS: TRAMADOL HCL 50 MG TABLET GT PRN (00:39)
[2016-03-17] MEDS: LEVOTHYROXINE SODIUM 50 MCG TABLET GT SCH (05:41)
[2016-03-17] MEDS: IPRATROPIUM NEB FS 0.5 MG/2.5 ML AMPUL.NEB NEB SCH ×3 (08:12→19:33)
[2016-03-17] MEDS: PANTOPRAZOLE 40 MG/PACK PACK GT SCH ×2 (08:28→21:29)
[2016-03-17] MEDS: VIT B CMPLX 3/FA/VIT C/BIOTIN 1 TAB TABLET PO SCH (08:28)
[2016-03-17] MEDS: DOCUSATE SODIUM LIQ 100 MG/10 ML UDC GT SCH ×2 (08:28→17:00)
[2016-03-17] MEDS: HYDROGEN PEROXIDE 480 ML BOTTLE TP SCH ×2 (08:29→21:29)
[2016-03-17] MEDS: LIDOCAINE 5% (PATCH) 1 EA PATCH TP SCH (08:29)
[2016-03-17] MEDS: HYDROGEL DRESSING 90 GM TUBE TP SCH ×2 (09:00→21:29)
[2016-03-17] MEDS: VITAMINS A AND D 56.7 GM TUBE TP SCH ×8 (09:00→21:30)
[2016-03-17] MEDS: NEOMY SULF/BACITRAC ZN/POLY 15 GM TUBE TP SCH ×4 (09:00→21:29)
[2016-03-17] MEDS: DIGOXIN 0.125 MG TABLET GT SCH (12:55)
[2016-03-17] MEDS ORDERED: DIGOXIN INJ 0.5 MG/2 ML AMPUL IV SCH (13:00)
[2016-03-17] MEDS: SULFAMETHOXAZOLE/TRIMETHOPRIM 15 ML in IV D5W 250 ML IV SCH (21:13)
[2016-03-17] MEDS: Z GUARD REMEDY 4 OZ OINT TP SCH (21:29)
[2016-03-17] MEDS: SENNOSIDES 8.6 MG TABLET GT SCH (21:30)
[2016-03-17] MEDS: HYDROMORPHONE HCL 2 MG TABLET GT PRN (22:11)
[2016-03-18] MEDS: IPRATROPIUM NEB FS 0.5 MG/2.5 ML AMPUL.NEB NEB SCH ×4 (01:11→19:38)
[2016-03-18] MEDS: TRAMADOL HCL 50 MG TABLET GT PRN ×2 (02:27→21:28)
[2016-03-18] MEDS: HYDROMORPHONE HCL 2 MG TABLET GT PRN (06:13)
[2016-03-18] MEDS: RENAL NOVASOURCE 1,000 ML BOTTLE GT PRN (06:48)
[2016-03-18] MEDS: LEVOTHYROXINE SODIUM 50 MCG TABLET GT SCH (06:56)
[2016-03-18] MEDS: VIT B CMPLX 3/FA/VIT C/BIOTIN 1 TAB TABLET PO SCH (09:16)
[2016-03-18] MEDS: PANTOPRAZOLE 40 MG/PACK PACK GT SCH ×2 (09:16→21:23)
[2016-03-18] MEDS: LIDOCAINE 5% (PATCH) 1 EA PATCH TP SCH (09:16)
[2016-03-18] MEDS: DOCUSATE SODIUM LIQ 100 MG/10 ML UDC GT SCH ×2 (09:16→17:30)
[2016-03-18] MEDS: METOCLOPRAMIDE HCL 10 MG/10 ML UDC GT PRN (09:21)
[2016-03-18] MEDS ORDERED: DAPTOMYCIN 500 MG in IV NS 0.9% 50 ML IV SCH ×2 (10:00→17:00)
[2016-03-18] MEDS: DIGOXIN 0.125 MG TABLET GT SCH (12:12)
[2016-03-18] MEDS: HYDROGEN PEROXIDE 480 ML BOTTLE TP SCH ×2 (16:30→21:23)
[2016-03-18] MEDS: Z GUARD REMEDY 4 OZ OINT TP SCH ×2 (16:30→21:23)
[2016-03-18] MEDS: VITAMINS A AND D 56.7 GM TUBE TP SCH ×8 (16:30→21:24)
[2016-03-18] MEDS: NEOMY SULF/BACITRAC ZN/POLY 15 GM TUBE TP SCH ×4 (16:30→21:23)
[2016-03-18] MEDS: HYDROGEL DRESSING 90 GM TUBE TP SCH ×2 (16:30→21:23)
[2016-03-18] MEDS: GENTAMICIN 80 MG in IV D5W 50 ML IV PRN (19:50)
[2016-03-18] MEDS: SULFAMETHOXAZOLE/TRIMETHOPRIM 15 ML in IV D5W 250 ML IV SCH (20:07)
[2016-03-18] MEDS: SENNOSIDES 8.6 MG TABLET GT SCH (21:24)
[2016-03-18] MEDS: QUETIAPINE FUMARATE 25 MG TABLET GT PRN (23:27)
[2016-03-19] MEDS: IPRATROPIUM NEB FS 0.5 MG/2.5 ML AMPUL.NEB NEB SCH ×4 (01:17→19:12)
[2016-03-19] MEDS: hydrALAZINE HCL 25 MG TABLET GT PRN ×2 (05:29→12:53)
[2016-03-19] MEDS: LEVOTHYROXINE SODIUM 25 MCG TABLET GT SCH (05:30)
[2016-03-19] MEDS: RENAL NOVASOURCE 1,000 ML BOTTLE GT PRN (05:30)
[2016-03-19] MEDS: LIDOCAINE 5% (PATCH) 1 EA PATCH TP SCH (09:00)
[2016-03-19] MEDS: HYDROGEL DRESSING 90 GM TUBE TP SCH ×2 (09:00→21:06)
[2016-03-19] MEDS: Z GUARD REMEDY 4 OZ OINT TP SCH ×2 (09:00→21:06)
[2016-03-19] MEDS: VITAMINS A AND D 56.7 GM TUBE TP SCH ×8 (09:00→21:07)
[2016-03-19] MEDS: HYDROGEN PEROXIDE 480 ML BOTTLE TP SCH ×2 (09:00→21:06)
[2016-03-19] MEDS: NEOMY SULF/BACITRAC ZN/POLY 15 GM TUBE TP SCH ×4 (09:00→21:06)
[2016-03-19] MEDS: DOCUSATE SODIUM LIQ 100 MG/10 ML UDC GT SCH ×2 (09:02→17:00)
[2016-03-19] MEDS: VIT B CMPLX 3/FA/VIT C/BIOTIN 1 TAB TABLET PO SCH (09:02)
[2016-03-19] MEDS: PANTOPRAZOLE 40 MG/PACK PACK GT SCH ×2 (09:02→21:06)
[2016-03-19] MEDS: DIGOXIN 0.125 MG TABLET GT SCH (12:52)
[2016-03-19] MEDS: HYDROMORPHONE HCL 2 MG TABLET GT PRN (13:46)
[2016-03-19] MEDS: GENTAMICIN 80 MG in IV D5W 50 ML IV PRN (18:31)
[2016-03-19] MEDS: TRAMADOL HCL 50 MG TABLET GT PRN (19:46)
[2016-03-19] MEDS: SULFAMETHOXAZOLE/TRIMETHOPRIM 15 ML in IV D5W 250 ML IV SCH (20:00)
[2016-03-19] MEDS: SENNOSIDES 8.6 MG TABLET GT SCH (21:07)
[2016-03-19] MEDS: QUETIAPINE FUMARATE 25 MG TABLET GT PRN (21:19)
[2016-03-20] MEDS: IPRATROPIUM NEB FS 0.5 MG/2.5 ML AMPUL.NEB NEB SCH ×4 (01:30→19:03)
[2016-03-20] MEDS: HYDROMORPHONE HCL 2 MG TABLET GT PRN ×2 (01:30→21:40)
[2016-03-20] MEDS: RENAL NOVASOURCE 1,000 ML BOTTLE GT PRN (05:54)
[2016-03-20] MEDS: LEVOTHYROXINE SODIUM 25 MCG TABLET GT SCH (05:54)
[2016-03-20] MEDS: DOCUSATE SODIUM LIQ 100 MG/10 ML UDC GT SCH ×2 (09:33→17:24)
[2016-03-20] MEDS: PANTOPRAZOLE 40 MG/PACK PACK GT SCH ×2 (09:33→20:36)
[2016-03-20] MEDS: VIT B CMPLX 3/FA/VIT C/BIOTIN 1 TAB TABLET PO SCH (09:33)
[2016-03-20] MEDS: LIDOCAINE 5% (PATCH) 1 EA PATCH TP SCH (09:34)
[2016-03-20] MEDS: NEOMY SULF/BACITRAC ZN/POLY 15 GM TUBE TP SCH ×4 (09:34→20:37)
[2016-03-20] MEDS: Z GUARD REMEDY 4 OZ OINT TP SCH ×2 (09:34→20:37)
[2016-03-20] MEDS: HYDROGEN PEROXIDE 480 ML BOTTLE TP SCH ×2 (09:34→20:36)
[2016-03-20] MEDS: HYDROGEL DRESSING 90 GM TUBE TP SCH ×2 (09:34→20:36)
[2016-03-20] MEDS: VITAMINS A AND D 56.7 GM TUBE TP SCH ×8 (09:34→20:37)
[2016-03-20] MEDS: DIGOXIN 0.125 MG TABLET GT SCH (12:08)
[2016-03-20] MEDS: SENNOSIDES 8.6 MG TABLET GT SCH (21:10)
[2016-03-21] MEDS: IPRATROPIUM NEB FS 0.5 MG/2.5 ML AMPUL.NEB NEB SCH ×4 (00:34→19:12)
[2016-03-21] MEDS: QUETIAPINE FUMARATE 25 MG TABLET GT PRN (05:39)
[2016-03-21] MEDS: LEVOTHYROXINE SODIUM 25 MCG TABLET GT SCH (05:39)
[2016-03-21] MEDS: PANTOPRAZOLE 40 MG/PACK PACK GT SCH ×2 (09:51→20:38)
[2016-03-21] MEDS: NEOMY SULF/BACITRAC ZN/POLY 15 GM TUBE TP SCH ×4 (09:51→20:39)
[2016-03-21] MEDS: LIDOCAINE 5% (PATCH) 1 EA PATCH TP SCH (09:51)
[2016-03-21] MEDS: DOCUSATE SODIUM LIQ 100 MG/10 ML UDC GT SCH ×2 (09:51→17:00)
[2016-03-21] MEDS: VIT B CMPLX 3/FA/VIT C/BIOTIN 1 TAB TABLET PO SCH (09:51)
[2016-03-21] MEDS: HYDROGEN PEROXIDE 480 ML BOTTLE TP SCH ×2 (09:51→20:39)
[2016-03-21] MEDS: HYDROGEL DRESSING 90 GM TUBE TP SCH ×2 (09:51→20:39)
[2016-03-21] MEDS: VITAMINS A AND D 56.7 GM TUBE TP SCH ×8 (09:52→20:39)
[2016-03-21] MEDS: Z GUARD REMEDY 4 OZ OINT TP SCH ×2 (09:52→20:39)
[2016-03-21] MEDS: HYDROMORPHONE HCL 2 MG TABLET GT PRN (11:38)
[2016-03-21] MEDS ORDERED: FEE PK DOSING 1 MIN EA MC ONE (12:13)
[2016-03-21] MEDS: DIGOXIN 0.125 MG TABLET GT SCH (13:00)
[2016-03-21] MEDS: SENNOSIDES 8.6 MG TABLET GT SCH (21:39)
[2016-03-22] MEDS: IPRATROPIUM NEB FS 0.5 MG/2.5 ML AMPUL.NEB NEB SCH ×4 (01:26→19:58)
[2016-03-22] MEDS: LEVOTHYROXINE SODIUM 25 MCG TABLET GT SCH (05:48)
[2016-03-22] MEDS: VIT B CMPLX 3/FA/VIT C/BIOTIN 1 TAB TABLET PO SCH (09:12)
[2016-03-22] MEDS: DOCUSATE SODIUM LIQ 100 MG/10 ML UDC GT SCH ×2 (09:12→17:27)
[2016-03-22] MEDS: PANTOPRAZOLE 40 MG/PACK PACK GT SCH ×2 (09:12→21:21)
[2016-03-22] MEDS: HYDROGEL DRESSING 90 GM TUBE TP SCH ×2 (09:12→21:21)
[2016-03-22] MEDS: NEOMY SULF/BACITRAC ZN/POLY 15 GM TUBE TP SCH ×4 (09:13→21:21)
[2016-03-22] MEDS: VITAMINS A AND D 56.7 GM TUBE TP SCH ×8 (09:13→21:21)
[2016-03-22] MEDS: Z GUARD REMEDY 4 OZ OINT TP SCH ×2 (09:13→21:21)
[2016-03-22] MEDS: LIDOCAINE 5% (PATCH) 1 EA PATCH TP SCH (09:13)
[2016-03-22] MEDS: HYDROGEN PEROXIDE 480 ML BOTTLE TP SCH ×2 (09:13→21:21)
[2016-03-22] MEDS: DIGOXIN 0.125 MG TABLET GT SCH (13:49)
[2016-03-22] MEDS: TRAMADOL HCL 50 MG TABLET GT PRN ×2 (13:50→21:37)
[2016-03-22] MEDS: SENNOSIDES 8.6 MG TABLET GT SCH (21:22)
[2016-03-22] MEDS: RENAL NOVASOURCE 1,000 ML BOTTLE GT PRN (21:22)
[2016-03-23] MEDS: IPRATROPIUM NEB FS 0.5 MG/2.5 ML AMPUL.NEB NEB SCH ×3 (01:45→19:30)
[2016-03-23] MEDS: LEVOTHYROXINE SODIUM 25 MCG TABLET GT SCH (05:51)
[2016-03-23] MEDS: NEOMY SULF/BACITRAC ZN/POLY 15 GM TUBE TP SCH ×4 (09:00→20:33)
[2016-03-23] MEDS: HYDROGEL DRESSING 90 GM TUBE TP SCH ×2 (09:00→20:32)
[2016-03-23] MEDS: Z GUARD REMEDY 4 OZ OINT TP SCH ×2 (09:00→20:33)
[2016-03-23] MEDS: DOCUSATE SODIUM LIQ 100 MG/10 ML UDC GT SCH ×2 (09:00→16:17)
[2016-03-23] MEDS: PANTOPRAZOLE 40 MG/PACK PACK GT SCH ×2 (09:00→20:32)
[2016-03-23] MEDS: VITAMINS A AND D 56.7 GM TUBE TP SCH ×8 (09:00→20:33)
[2016-03-23] MEDS: HYDROGEN PEROXIDE 480 ML BOTTLE TP SCH ×2 (09:00→20:32)
[2016-03-23] MEDS: LIDOCAINE 5% (PATCH) 1 EA PATCH TP SCH (09:00)
[2016-03-23] MEDS: VIT B CMPLX 3/FA/VIT C/BIOTIN 1 TAB TABLET PO SCH (09:00)
[2016-03-23] MEDS: DIGOXIN 0.125 MG TABLET GT SCH (13:00)
[2016-03-23] MEDS ORDERED: POTASSIUM CHLORIDE 20 MEQ POWDER PACKET GT ONE (20:30)
[2016-03-23] MEDS: FUROSEMIDE 40 MG/4 ML VIAL IV SCH (20:47)
[2016-03-23] MEDS: SENNOSIDES 8.6 MG TABLET GT SCH (22:02)
[2016-03-24] MEDS: IPRATROPIUM NEB FS 0.5 MG/2.5 ML AMPUL.NEB NEB SCH ×4 (02:10→19:29)
[2016-03-24] MEDS: LEVOTHYROXINE SODIUM 25 MCG TABLET GT SCH (05:47)
[2016-03-24] MEDS: VIT B CMPLX 3/FA/VIT C/BIOTIN 1 TAB TABLET PO SCH (09:06)
[2016-03-24] MEDS: Z GUARD REMEDY 4 OZ OINT TP SCH ×2 (09:06→21:05)
[2016-03-24] MEDS: HYDROGEL DRESSING 90 GM TUBE TP SCH ×2 (09:06→21:04)
[2016-03-24] MEDS: VITAMINS A AND D 56.7 GM TUBE TP SCH ×8 (09:06→21:05)
[2016-03-24] MEDS: PANTOPRAZOLE 40 MG/PACK PACK GT SCH ×2 (09:06→21:04)
[2016-03-24] MEDS: LIDOCAINE 5% (PATCH) 1 EA PATCH TP SCH (09:06)
[2016-03-24] MEDS: NEOMY SULF/BACITRAC ZN/POLY 15 GM TUBE TP SCH ×4 (09:06→21:05)
[2016-03-24] MEDS: DOCUSATE SODIUM LIQ 100 MG/10 ML UDC GT SCH ×2 (09:06→17:00)
[2016-03-24] MEDS: HYDROGEN PEROXIDE 480 ML BOTTLE TP SCH ×2 (09:06→21:04)
[2016-03-24] MEDS: FUROSEMIDE 40 MG/4 ML VIAL IV SCH (09:45)
[2016-03-24] MEDS: DIGOXIN 0.125 MG TABLET GT SCH (12:55)
[2016-03-24] MEDS: PROSOURCE / PROSTAT (PYXIS) 30 ML UDC GT SCH (17:00)
[2016-03-24] MEDS: TRAMADOL HCL 50 MG TABLET GT PRN (20:43)
[2016-03-24] MEDS: SENNOSIDES 8.6 MG TABLET GT SCH (21:05)
[2016-03-25] MEDS: IPRATROPIUM NEB FS 0.5 MG/2.5 ML AMPUL.NEB NEB SCH ×4 (00:59→19:45)
[2016-03-25] MEDS: QUETIAPINE FUMARATE 25 MG TABLET GT PRN (01:55)
[2016-03-25] MEDS: LEVOTHYROXINE SODIUM 25 MCG TABLET GT SCH (06:56)
[2016-03-25] MEDS: PROSOURCE / PROSTAT (PYXIS) 30 ML UDC GT SCH ×3 (08:53→16:53)
[2016-03-25] MEDS: VIT B CMPLX 3/FA/VIT C/BIOTIN 1 TAB TABLET PO SCH (08:53)
[2016-03-25] MEDS: PANTOPRAZOLE 40 MG/PACK PACK GT SCH (08:53)
[2016-03-25] MEDS: DOCUSATE SODIUM LIQ 100 MG/10 ML UDC GT SCH ×2 (08:53→16:53)
[2016-03-25] MEDS: Z GUARD REMEDY 4 OZ OINT TP SCH ×2 (08:58→21:00)
[2016-03-25] MEDS: HYDROGEN PEROXIDE 480 ML BOTTLE TP SCH ×2 (08:58→21:00)
[2016-03-25] MEDS: NEOMY SULF/BACITRAC ZN/POLY 15 GM TUBE TP SCH ×4 (08:58→21:00)
[2016-03-25] MEDS: LIDOCAINE 5% (PATCH) 1 EA PATCH TP SCH (08:58)
[2016-03-25] MEDS: HYDROGEL DRESSING 90 GM TUBE TP SCH ×2 (08:58→21:00)
[2016-03-25] MEDS: VITAMINS A AND D 56.7 GM TUBE TP SCH ×8 (08:59→21:00)
[2016-03-25] MEDS: DIGOXIN 0.125 MG TABLET GT SCH (13:00)
[2016-03-25] MEDS: METOCLOPRAMIDE HCL 10 MG/10 ML UDC GT PRN (16:54)
[2016-03-25] MEDS: TRAMADOL HCL 50 MG TABLET GT PRN (17:01)
[2016-03-25] MEDS: GENTAMICIN 80 MG in IV D5W 50 ML IV PRN (17:11)
[2016-03-25] MEDS: SENNOSIDES 8.6 MG TABLET GT SCH (22:13)
[2016-03-25] MEDS: HYDROMORPHONE HCL 2 MG TABLET GT PRN (22:14)
[2016-03-26] MEDS: IPRATROPIUM NEB FS 0.5 MG/2.5 ML AMPUL.NEB NEB SCH ×4 (01:02→19:52)
[2016-03-26] MEDS: OMEPRAZOLE 10 MG CAPSULE.DR GT SCH (05:28)
[2016-03-26] MEDS: LEVOTHYROXINE SODIUM 25 MCG TABLET GT SCH (05:31)
[2016-03-26] MEDS ORDERED: IV NS 0.9% 500 ML IV ONE (08:30)
[2016-03-26] MEDS: LIDOCAINE 5% (PATCH) 1 EA PATCH TP SCH (09:43)
[2016-03-26] MEDS: DOCUSATE SODIUM LIQ 100 MG/10 ML UDC GT SCH ×2 (09:43→17:33)
[2016-03-26] MEDS: PROSOURCE / PROSTAT (PYXIS) 30 ML UDC GT SCH ×3 (09:43→17:33)
[2016-03-26] MEDS: VIT B CMPLX 3/FA/VIT C/BIOTIN 1 TAB TABLET PO SCH (09:43)
[2016-03-26] MEDS: TRAMADOL HCL 50 MG TABLET GT PRN ×2 (09:45→11:12)
[2016-03-26] MEDS: HYDROGEL DRESSING 90 GM TUBE TP SCH ×2 (10:45→20:39)
[2016-03-26] MEDS: VITAMINS A AND D 56.7 GM TUBE TP SCH ×8 (10:45→20:40)
[2016-03-26] MEDS: NEOMY SULF/BACITRAC ZN/POLY 15 GM TUBE TP SCH ×4 (10:45→20:40)
[2016-03-26] MEDS: Z GUARD REMEDY 4 OZ OINT TP SCH ×2 (10:45→20:40)
[2016-03-26] MEDS: HYDROGEN PEROXIDE 480 ML BOTTLE TP SCH ×2 (10:45→20:39)
[2016-03-26] MEDS ORDERED: FUROSEMIDE 40 MG/4 ML VIAL IV ONE (12:30)
[2016-03-26] MEDS: DIGOXIN 0.125 MG TABLET GT SCH (13:44)
[2016-03-26] MEDS: RENAL NOVASOURCE 1,000 ML BOTTLE GT PRN (13:51)
[2016-03-26] MEDS: SENNOSIDES 8.6 MG TABLET GT SCH (22:00)
[2016-03-27] MEDS: IPRATROPIUM NEB FS 0.5 MG/2.5 ML AMPUL.NEB NEB SCH ×4 (02:15→20:23)
[2016-03-27] MEDS: OMEPRAZOLE 10 MG CAPSULE.DR GT SCH (05:33)
[2016-03-27] MEDS: LEVOTHYROXINE SODIUM 25 MCG TABLET GT SCH (05:33)
[2016-03-27] MEDS: VIT B CMPLX 3/FA/VIT C/BIOTIN 1 TAB TABLET PO SCH (09:35)
[2016-03-27] MEDS: PROSOURCE / PROSTAT (PYXIS) 30 ML UDC GT SCH ×3 (09:35→17:18)
[2016-03-27] MEDS: DOCUSATE SODIUM LIQ 100 MG/10 ML UDC GT SCH ×2 (09:35→17:18)
[2016-03-27] MEDS: HYDROGEL DRESSING 90 GM TUBE TP SCH ×2 (09:36→21:04)
[2016-03-27] MEDS: NEOMY SULF/BACITRAC ZN/POLY 15 GM TUBE TP SCH ×4 (09:37→21:04)
[2016-03-27] MEDS: LIDOCAINE 5% (PATCH) 1 EA PATCH TP SCH (09:37)
[2016-03-27] MEDS: HYDROGEN PEROXIDE 480 ML BOTTLE TP SCH ×2 (09:37→21:04)
[2016-03-27] MEDS: Z GUARD REMEDY 4 OZ OINT TP SCH ×2 (09:38→21:04)
[2016-03-27] MEDS: VITAMINS A AND D 56.7 GM TUBE TP SCH ×8 (09:38→21:04)
[2016-03-27] MEDS: DIGOXIN 0.125 MG TABLET GT SCH (13:00)
[2016-03-27] MEDS: SENNOSIDES 8.6 MG TABLET GT SCH (21:04)
[2016-03-28] MEDS: IPRATROPIUM NEB FS 0.5 MG/2.5 ML AMPUL.NEB NEB SCH ×4 (01:40→20:05)
[2016-03-28] MEDS: LEVOTHYROXINE SODIUM 25 MCG TABLET GT SCH (05:38)
[2016-03-28] MEDS: OMEPRAZOLE 10 MG CAPSULE.DR GT SCH (05:38)
[2016-03-28] MEDS: PROSOURCE / PROSTAT (PYXIS) 30 ML UDC GT SCH ×3 (08:00→17:33)
[2016-03-28] MEDS: DOCUSATE SODIUM LIQ 100 MG/10 ML UDC GT SCH ×2 (08:00→17:33)
[2016-03-28] MEDS: VIT B CMPLX 3/FA/VIT C/BIOTIN 1 TAB TABLET PO SCH (08:00)
[2016-03-28] MEDS: LIDOCAINE 5% (PATCH) 1 EA PATCH TP SCH (08:01)
[2016-03-28] MEDS: HYDROGEL DRESSING 90 GM TUBE TP SCH ×2 (10:45→21:17)
[2016-03-28] MEDS: VITAMINS A AND D 56.7 GM TUBE TP SCH ×8 (10:45→21:18)
[2016-03-28] MEDS: HYDROGEN PEROXIDE 480 ML BOTTLE TP SCH ×2 (10:45→21:17)
[2016-03-28] MEDS: Z GUARD REMEDY 4 OZ OINT TP SCH ×2 (10:45→21:17)
[2016-03-28] MEDS: NEOMY SULF/BACITRAC ZN/POLY 15 GM TUBE TP SCH ×4 (10:45→21:17)
[2016-03-28] MEDS: DIGOXIN 0.125 MG TABLET GT SCH (12:25)
[2016-03-28] MEDS: RENAL NOVASOURCE 1,000 ML BOTTLE GT PRN (18:09)
[2016-03-28] MEDS ORDERED: IV NS 0.9% 250 ML IV ONE (18:30)
[2016-03-28] MEDS ORDERED: FUROSEMIDE 40 MG/4 ML VIAL IV SCH (21:00)
[2016-03-28] MEDS: HEPARIN SODIUM, PORCINE 5000 UNITS/1 ML VIAL SQ SCH (21:16)
[2016-03-28] MEDS: SENNOSIDES 8.6 MG TABLET GT SCH (21:18)
[2016-03-28] MEDS ORDERED: IV NS 0.9% 1,000 ML IV ONE (21:30)
[2016-03-29] MEDS: IPRATROPIUM NEB FS 0.5 MG/2.5 ML AMPUL.NEB NEB SCH ×2 (02:21→07:07)
[2016-03-29] MEDS: HYDROMORPHONE HCL 2 MG TABLET GT PRN (02:31)
[2016-03-29] MEDS: QUETIAPINE FUMARATE 25 MG TABLET GT PRN (03:19)
[2016-03-29] MEDS: OMEPRAZOLE 10 MG CAPSULE.DR GT SCH (05:31)
[2016-03-29] MEDS: LEVOTHYROXINE SODIUM 25 MCG TABLET GT SCH (05:31)
[2016-03-29] MEDS: PROSOURCE / PROSTAT (PYXIS) 30 ML UDC GT SCH (09:20)
[2016-03-29] MEDS: DOCUSATE SODIUM LIQ 100 MG/10 ML UDC GT SCH (09:20)
[2016-03-29] MEDS: VIT B CMPLX 3/FA/VIT C/BIOTIN 1 TAB TABLET PO SCH (09:20)
[2016-03-29] MEDS: HEPARIN SODIUM, PORCINE 5000 UNITS/1 ML VIAL SQ SCH (09:21)
[2016-03-29] MEDS: LIDOCAINE 5% (PATCH) 1 EA PATCH TP SCH (09:21)
[2016-03-29] MEDS ORDERED: IPRA0.2S49 NEB (11:43)
[2016-03-29] MEDS ORDERED: HYDR2TAB35 NG (11:43)
[2016-03-29] MEDS ORDERED: METO5TAB2 NG (11:43)
[2016-03-29] MEDS ORDERED: QUET25TA NG (11:43)
[2016-03-29] MEDS ORDERED: VIT1TABL44 NG (11:43)
[2016-03-29] MEDS ORDERED: DIGO125T PO (11:43)
[2016-03-29] MEDS ORDERED: HEPA500014 SQ (11:43)
[2016-03-29] MEDS ORDERED: OMEP20TA68 GT (11:43)
[2016-03-29] MEDS ORDERED: FURO10VI IV (11:43)
[2016-03-29] MEDS ORDERED: HYDR-4076 NG (11:43)
[2016-03-29] MEDS ORDERED: LEVO25TA9 NG (11:43)
[2016-03-29] MEDS ORDERED: NUTR100037 GT (11:43)
[2016-03-30] MEDS ORDERED: FENTANYL PF 100MCG/2ML AMPUL ONE (16:29)
== END 2016-03-29 12:46 | DRG 208 ==
DX: J96.10 Chronic respiratory failure, unspecified whether with hypoxia or hypercapnia (principal); N18.6 End stage renal disease; E43 Unspecified severe protein-calorie malnutrition; J98.11 Atelectasis; E11.22 Type 2 diabetes mellitus with diabetic chronic kidney disease; E03.9 Hypothyroidism, unspecified; E66.01 Morbid (severe) obesity due to excess calories; Z68.35 Body mass index [BMI] 35.0-35.9, adult; I05.0 Rheumatic mitral stenosis; I48.0 Paroxysmal atrial fibrillation; I89.0 Lymphedema, not elsewhere classified; K02.9 Dental caries, unspecified; R13.10 Dysphagia, unspecified; Z82.49 Family history of ischemic heart disease and other diseases of the circulatory system; Z92.21 Personal history of antineoplastic chemotherapy; Z90.10 Acquired absence of unspecified breast and nipple; Z85.3 Personal history of malignant neoplasm of breast; Z88.0 Allergy status to penicillin; Z90.49 Acquired absence of other specified parts of digestive tract; Z99.2 Dependence on renal dialysis; Z93.0 Tracheostomy status; Z93.1 Gastrostomy status; D63.8 Anemia in other chronic diseases classified elsewhere; D69.6 Thrombocytopenia, unspecified; I50.9 Heart failure, unspecified; Z86.14 Personal history of Methicillin resistant Staphylococcus aureus infection

== ENCOUNTER 2016-03-23 12:27 | Emergency (ER) | payer MEDICARE, OTHER ==
[~2016-03-23] VITALS: Ht 165.1 cm; Wt 84.4 kg
[~2016-03-23 12:27] MED LIST changes: +AMIN30LI2 GT; -AMIN30LI2 NG; +DOCU50LI GT; -DOCU50LI NG; +ONDA4TAB5 GT; -ONDA4TAB5 NG; +SENN8.6T6 GT; -SENN8.6T6 NG
[2016-03-23 13:04] LABS: BASOPHILS # (AUTO) 0.2 /CMM (0.0-0.2); DIFF TOTAL % 100 %; EOSINOPHILS # (AUTO) 0.1 /CMM (0.0-0.7); EOSINOPHILS % (AUTO) 1.3 % (0.0-6.0); HEMATOCRIT 27 % (33-45); HEMOGLOBIN 8.9 g/dL (11.5-14.8); LYMPHOCYTES # (AUTO) 0.5 /CMM (0.8-4.8); LYMPHOCYTES % (AUTO) 8.3 % (20.0-44.0); MEAN CORPUSCULAR HEMOGLOBIN 30 PG (26.0-33.0); MEAN CORPUSCULAR HGB CONC 33 g/dl (31.0-36.0); MEAN CORPUSCULAR VOLUME 93 fL (82-100); MONOCYTES # (AUTO) 0.4 /CMM (0.1-1.30); MONOCYTES % (AUTO) 6.4 % (2.0-12.0); NEUTROPHILS # (AUTO) 5.1 /CMM (1.8-8.9); PLATELET COUNT (AUTO) 100 /CMM (150-450); RED BLOOD CELL COUNT(AUTO) 2.94 MIL/uL (4.0-5.2); WHITE BLOOD COUNT (AUTO) 6.3 K/uL (4.3-11.0)
[2016-03-23 13:06] VITALS: BP 135/63
[2016-03-23 13:16] LABS: CALCIUM, SERUM 8.6 mg/dL (8.5-10.1); CREATININE 2.6 mg/dL (0.6-1.3)
[2016-03-23 13:20] LABS: INR 1.06 (0.87-1.13); PROTHROMBIN TIME 11.1 SECS (9.5-12.7)
[2016-03-23 13:28] LABS: ALBUMIN 2.3 g/dL (3.4-5.0); BILIRUBIN,DIRECT 0.4 mg/dL (0.0-0.2); BILIRUBIN,TOTAL 0.8 mg/dL (0.2-1.0); INDIRECT BILIRUBIN 0.4 mg/dL (0.0-1.1); TOTAL PROTEIN, SERUM 7.5 g/dL (6.4-8.2)
[2016-03-23 13:51] LABS: LACTIC ACID 1.3 mmol/L (0.4-2.0)
[2016-03-23 14:19] LABS: TROPONIN I 0.097 ng/mL (0.00-0.056)
[2016-03-23 14:36] VITALS: BP 135/63
== END 2016-03-23 14:49 ==
LOC: ER 12:28
DX: R00.1 Bradycardia, unspecified (principal); I48.91 Unspecified atrial fibrillation; E03.9 Hypothyroidism, unspecified; I10 Essential (primary) hypertension; E11.9 Type 2 diabetes mellitus without complications; Z79.4 Long term (current) use of insulin; Z88.0 Allergy status to penicillin; Z99.2 Dependence on renal dialysis
CPT/HCPCS: 36415; 71010-TC; 80048-TC; 80076-TC; 83605-TC; 83880; 84484-TC; 85025-TC; 85730-TC; 87040-TC; 87081-TC; A4606; Z7610

== ENCOUNTER 2016-03-29 10:35 | Inpatient (IN) | payer OTHER, MEDICARE ==
[~2016-03-29] VITALS: Ht 167.6 cm; Wt 94.8 kg
[2016-03-29] VITALS (16 sets, daily range): BP systolic 88–103; BP diastolic 38–80
[2016-03-29] MEDS ORDERED: IV NS 0.9% 1,000 ML BAG IV ONE (11:00)
[2016-03-29 11:08] LABS: BASOPHILS % (AUTO) 0.1 % (0.0-2.0); DIFF TOTAL % 100 %; EOSINOPHILS % (AUTO) 0.2 % (0.0-6.0); HEMATOCRIT 26 % (33-45); LYMPHOCYTES # (AUTO) 0.2 /CMM (0.8-4.8); LYMPHOCYTES % (AUTO) 2.4 % (20.0-44.0); MEAN CORPUSCULAR HEMOGLOBIN 30 PG (26.0-33.0); MEAN CORPUSCULAR HGB CONC 31 g/dl (31.0-36.0); MEAN CORPUSCULAR VOLUME 95 fL (82-100); MONOCYTES % (AUTO) 0.5 % (2.0-12.0); NEUTROPHILS # (AUTO) 7.2 /CMM (1.8-8.9); NEUTROPHILS % (AUTO) 96.8 % (43.0-81.0); PLATELET COUNT (AUTO) 102 /CMM (150-450); RED BLOOD CELL COUNT(AUTO) 2.71 MIL/uL (4.0-5.2); WHITE BLOOD COUNT (AUTO) 7.4 K/uL (4.3-11.0)
[2016-03-29 11:17] LABS: ANION GAP 12 (5-14); CALCIUM, SERUM 9.3 mg/dL (8.5-10.1); CARBON DIOXIDE 23 mmol/L (21-32); CHLORIDE 103 mmol/L (98-107); CREATININE 2.1 mg/dL (0.6-1.3); GFR 23 mL/min (>60); GLUCOSE 264 mg/dL (74-106); POTASSIUM 3.5 mmol/L (3.5-5.1); SODIUM SERUM 135 mmol/L (136-145); UREA NITROGEN, BLOOD 39 mg/dL (7-18)
[2016-03-29 11:21] LABS: INR 1.11 (0.87-1.13); PROTHROMBIN TIME 11.7 SECS (9.5-12.7)
[2016-03-29 11:26] LABS: ALANINE AMINOTRANSFERASE 11 U/L (12-78); ALBUMIN 1.5 g/dL (3.4-5.0); ASPARTATE AMINOTRANSFERASE 21 U/L (15-37); BILIRUBIN,DIRECT 1.2 mg/dL (0.0-0.2); BILIRUBIN,TOTAL 1.6 mg/dL (0.2-1.0); INDIRECT BILIRUBIN 0.4 mg/dL (0.0-1.1); TOTAL PROTEIN, SERUM 6.4 g/dL (6.4-8.2)
[2016-03-29 11:30] LABS: TROPONIN I 0.037 ng/mL (0.00-0.056)
[2016-03-29] MEDS ORDERED: FURO10VI IV (11:43)
[2016-03-29] MEDS ORDERED: QUET25TA GT (11:43)
[2016-03-29] MEDS ORDERED: NUTR100037 GT (11:43)
[2016-03-29] MEDS ORDERED: DIGO125T PO (11:43)
[2016-03-29] MEDS ORDERED: IPRA0.2S49 NEB (11:43)
[2016-03-29] MEDS ORDERED: VIT1TABL44 GT (11:43)
[2016-03-29] MEDS ORDERED: HYDR2TAB35 GT (11:43)
[2016-03-29] MEDS ORDERED: METO5TAB2 GT (11:43)
[2016-03-29] MEDS ORDERED: HEPA500014 SQ (11:43)
[2016-03-29] MEDS ORDERED: HYDR-4076 GT (11:43)
[2016-03-29] MEDS ORDERED: OMEP20TA68 GT (11:43)
[2016-03-29] MEDS ORDERED: LEVO25TA9 GT (11:43)
[2016-03-29 13:32] LABS: LACTIC ACID 2.2 mmol/L (0.4-2.0)
[2016-03-29 13:34] LABS: *LACTIC ACID REFLEX FLAG YES
[2016-03-29 13:43] LABS: BAND % (MANUAL) 31 % (0.0-5.0); LYMPHOCYTES % (MANUAL) 10 % (16-48)
[2016-03-29 13:44] LABS: BASOPHILS % (MANUAL) 0 % (0.0-2.0); EOSINOPHILS % (MANUAL) 0 % (0-4); PLATELET ESTIMATE DECREASED; RBC MORPHOLOGY COMMENT NORMAL RBC MORPH
[2016-03-29] MEDS ORDERED: HYDROGEL DRESSING 90 GM TUBE TP PRN (16:30)
[2016-03-29] MEDS ORDERED: IMIPENEM/CILASTATIN 500 MG in IV NS 0.9% 100 ML IV SCH (19:00)
[2016-03-29] MEDS ORDERED: PANTOPRAZOLE 40 MG VIAL IV SCH (19:00)
[2016-03-29] MEDS ORDERED: BISACODYL SUPP (10 MG) 10 MG/SUPP.RECT SUPP.RECT RC PRN (19:00)
[2016-03-29] MEDS ORDERED: DOSING PER PHARMACY-AMIKACI IV XX PRN (19:30)
[2016-03-29] MEDS ORDERED: DEXTROSE 50%-WATER 50 ML DISP.SYRIN IV PRN (19:30)
[2016-03-29] MEDS ORDERED: FEE PK DOSING 1 MIN EA MC ONE (19:58)
[2016-03-29] MEDS: IPRATROPIUM NEB FS 0.5 MG/2.5 ML AMPUL.NEB NEB SCH (20:27)
[2016-03-29] MEDS ORDERED: AMIKACIN 500 MG in IV D5W 100 ML IV ONE (21:00)
[2016-03-29] MEDS ORDERED: IV NS 0.9% 250 ML IV ONE ×2 (21:05→23:21)
[2016-03-29] MEDS ORDERED: BLOOD IV SET 1 EA INFUS.SET MC ONE (21:05)
[2016-03-29] MEDS: SENNOSIDES 8.6 MG TABLET GT SCH (21:40)
[2016-03-29] MEDS: BLOOD SUGAR DIAGNOSTIC 1 EACH STRIP IN SCH (23:05)
[2016-03-29] MEDS: INSULIN REGULAR, HUMAN 100 UNIT/ML 3 ML VIAL SQ PRN (23:05)
[2016-03-29] MEDS ORDERED: SECONDARY IV SET 1 EA INFUS.SET MC ONE (23:13)
[2016-03-29] MEDS ORDERED: IV SET PRIMARY PUMP SET 1 EA INFUS.SET MC ONE (23:14)
[2016-03-29] MEDS: MEROPENEM 500 MG in IV NS 0.9% 50 ML IV SCH (23:18)
[2016-03-30] VITALS (9 sets, daily range): BP systolic 102–133; BP diastolic 38–89
[2016-03-30] MEDS: LINEZOLID RTU BAG 600 MG in PREMIX 1 EA IV SCH ×2 (00:04→09:02)
[2016-03-30] MEDS: IPRATROPIUM NEB FS 0.5 MG/2.5 ML AMPUL.NEB NEB SCH ×4 (02:01→20:27)
[2016-03-30] MEDS: BLOOD SUGAR DIAGNOSTIC 1 EACH STRIP IN SCH ×4 (05:27→22:48)
[2016-03-30] MEDS: INSULIN REGULAR, HUMAN 100 UNIT/ML 3 ML VIAL SQ PRN ×2 (05:29→22:49)
[2016-03-30] MEDS: LEVOTHYROXINE SODIUM 25 MCG TABLET GT SCH (05:49)
[2016-03-30 06:40] LABS: BASOPHILS % (AUTO) 0.3 % (0.0-2.0); DIFF TOTAL % 100 %; EOSINOPHILS % (AUTO) 0.1 % (0.0-6.0); LYMPHOCYTES # (AUTO) 0.6 /CMM (0.8-4.8); LYMPHOCYTES % (AUTO) 13.4 % (20.0-44.0); MEAN CORPUSCULAR HEMOGLOBIN 28 PG (26.0-33.0); MEAN CORPUSCULAR HGB CONC 32 g/dl (31.0-36.0); MEAN CORPUSCULAR VOLUME 90 fL (82-100); MONOCYTES # (AUTO) 0.1 /CMM (0.1-1.30); MONOCYTES % (AUTO) 1.4 % (2.0-12.0); NEUTROPHILS # (AUTO) 3.5 /CMM (1.8-8.9); NEUTROPHILS % (AUTO) 84.8 % (43.0-81.0); PLATELET COUNT (AUTO) 164 /CMM (150-450); RED BLOOD CELL COUNT(AUTO) 2.28 MIL/uL (4.0-5.2); WHITE BLOOD COUNT (AUTO) 4.1 K/uL (4.3-11.0)
[2016-03-30 07:05] LABS: CALCIUM, SERUM 9.1 mg/dL (8.5-10.1); POTASSIUM 4.1 mmol/L (3.5-5.1)
[2016-03-30 07:13] LABS: PHOSPHORUS 0.8 mg/dL (2.5-4.9)
[2016-03-30 07:39] LABS: HEMOGLOBIN 6.4 g/dL (11.5-14.8)
[2016-03-30 07:40] LABS: HEMATOCRIT 20 % (33-45)
[2016-03-30 08:01] LABS: ANISOCYTOSIS 1+; BAND % (MANUAL) 22 % (0.0-5.0); EOSINOPHILS % (MANUAL) 1 % (0-4); HYPOCHROMASIA 1+; LYMPHOCYTES % (MANUAL) 8 % (16-48); PLATELET ESTIMATE ADEQUATE
[2016-03-30] MEDS: DOCUSATE SODIUM LIQ 100 MG/10 ML UDC GT SCH ×2 (08:51→16:58)
[2016-03-30] MEDS: VIT B CMPLX 3/FA/VIT C/BIOTIN 1 TAB TABLET GT SCH (08:51)
[2016-03-30] MEDS: Z GUARD REMEDY 4 OZ OINT TP SCH (09:04)
[2016-03-30 10:14] LABS: HEMOGLOBIN 8.7 g/dL (11.5-14.8)
[2016-03-30] MEDS: PANTOPRAZOLE 40 MG VIAL IV SCH ×2 (10:20→21:07)
[2016-03-30] MEDS ORDERED: MISCELLANEOUS MED 1 EA EA IV SCH (10:30)
[2016-03-30] MEDS ORDERED: SECONDARY IV SET 1 EA INFUS.SET MC ONE ×3 (11:10→20:53)
[2016-03-30] MEDS: Potassium Phosphate meq 11 MEQ in IV D5W 100 ML IV SCH ×2 (11:14→16:13)
[2016-03-30] MEDS ORDERED: EPOETIN ALFA (10,000 UNIT) 10,000 UNIT/ML VIAL IV ONE (11:30)
[2016-03-30] MEDS: DAPTOMYCIN 500 MG in IV NS 0.9% 50 ML IV SCH (12:12)
[2016-03-30] MEDS: DIGOXIN 0.125 MG TABLET PO SCH (13:00)
[2016-03-30] MEDS ORDERED: EPHEDRINE SULFATE IV 50MG VIAL ONE (17:48)
[2016-03-30] MEDS ORDERED: FENTANYL PF 100MCG/2ML AMPUL ONE (17:49)
[2016-03-30] MEDS ORDERED: HYDROMORPHONE MDV 0.5 MG in IV D5W 50 ML IV PRN (20:30)
[2016-03-30] MEDS: IV D5/0.45 NACL 1,000 ML IV SCH (20:30)
[2016-03-30] MEDS: MEROPENEM 500 MG in IV NS 0.9% 50 ML IV SCH (20:48)
[2016-03-30] MEDS ORDERED: IV NS 0.9% 250 ML IV ONE ×2 (20:48→20:49)
[2016-03-30] MEDS ORDERED: IV SET PRIMARY PUMP SET 1 EA INFUS.SET MC ONE (20:48)
[2016-03-30] MEDS: SENNOSIDES 8.6 MG TABLET GT SCH (21:07)
[2016-03-31] VITALS: BP 92/45
[2016-03-31] MEDS: IPRATROPIUM NEB FS 0.5 MG/2.5 ML AMPUL.NEB NEB SCH ×4 (02:24→20:28)
[2016-03-31 04:00] VITALS: BP 102/54
[2016-03-31] MEDS: BLOOD SUGAR DIAGNOSTIC 1 EACH STRIP IN SCH ×3 (05:59→18:02)
[2016-03-31] MEDS: LEVOTHYROXINE SODIUM 25 MCG TABLET GT SCH (06:17)
[2016-03-31 07:07] VITALS: BP 113/54
[2016-03-31] MEDS: PANTOPRAZOLE 40 MG VIAL IV SCH ×2 (08:06→21:53)
[2016-03-31] MEDS: VIT B CMPLX 3/FA/VIT C/BIOTIN 1 TAB TABLET GT SCH (08:06)
[2016-03-31] MEDS: DOCUSATE SODIUM LIQ 100 MG/10 ML UDC GT SCH ×2 (08:06→17:00)
[2016-03-31] MEDS: Z GUARD REMEDY 4 OZ OINT TP SCH (08:07)
[2016-03-31] MEDS: IV D5/0.45 NACL 1,000 ML IV SCH (08:30)
[2016-03-31] MEDS ORDERED: MUPIROCIN OINT 2% 22 GM TUBE SCH (09:00)
[2016-03-31] MEDS: HYDROMORPHONE 1 MG/1 ML DISP.SYRIN IV PRN ×2 (11:06→12:01)
[2016-03-31] MEDS: INSULIN REGULAR, HUMAN 100 UNIT/ML 3 ML VIAL SQ PRN ×2 (11:58→18:03)
[2016-03-31] MEDS: DIGOXIN 0.125 MG TABLET PO SCH (13:24)
[2016-03-31 16:00] VITALS: BP 110/70
[2016-03-31] MEDS ORDERED: IV NS 0.9% 1,000 ML BAG IV PRN (18:00)
[2016-03-31] MEDS: DAKINS QUARTER STRENGTH (0.125%) 480 ML BOTTLE TOP SCH (18:04)
[2016-03-31 20:00] VITALS: BP 110/70
[2016-03-31] MEDS ORDERED: SECONDARY IV SET 1 EA INFUS.SET MC ONE (21:39)
[2016-03-31] MEDS: AMIKACIN 500 MG in IV D5W 100 ML IV PRN (21:53)
[2016-03-31] MEDS: SENNOSIDES 8.6 MG TABLET GT SCH (21:53)
[2016-03-31] MEDS: MEROPENEM 500 MG in IV NS 0.9% 50 ML IV SCH (22:42)
[2016-04-01] VITALS (7 sets, daily range): BP systolic 92–111; BP diastolic 40–54
[2016-04-01] MEDS: BLOOD SUGAR DIAGNOSTIC 1 EACH STRIP IN SCH ×5 (00:01→23:09)
[2016-04-01] MEDS: IPRATROPIUM NEB FS 0.5 MG/2.5 ML AMPUL.NEB NEB SCH ×4 (01:50→20:23)
[2016-04-01] MEDS: LEVOTHYROXINE SODIUM 25 MCG TABLET GT SCH (06:17)
[2016-04-01 09:56] LABS: BASOPHILS # (AUTO) 0.1 /CMM (0.0-0.2); BASOPHILS % (AUTO) 0.3 % (0.0-2.0); DIFF TOTAL % 100 %; EOSINOPHILS % (AUTO) 0.2 % (0.0-6.0); HEMATOCRIT 27 % (33-45); HEMOGLOBIN 8.5 g/dL (11.5-14.8); LYMPHOCYTES # (AUTO) 0.7 /CMM (0.8-4.8); LYMPHOCYTES % (AUTO) 4.6 % (20.0-44.0); MEAN CORPUSCULAR HEMOGLOBIN 29 PG (26.0-33.0); MEAN CORPUSCULAR HGB CONC 32 g/dl (31.0-36.0); MEAN CORPUSCULAR VOLUME 92 fL (82-100); MONOCYTES # (AUTO) 0.4 /CMM (0.1-1.30); MONOCYTES % (AUTO) 2.4 % (2.0-12.0); NEUTROPHILS % (AUTO) 92.5 % (43.0-81.0); PLATELET COUNT (AUTO) 100 /CMM (150-450); RED BLOOD CELL COUNT(AUTO) 2.91 MIL/uL (4.0-5.2); WHITE BLOOD COUNT (AUTO) 16.2 K/uL (4.3-11.0)
[2016-04-01] MEDS: Z GUARD REMEDY 4 OZ OINT TP SCH (10:07)
[2016-04-01] MEDS: VIT B CMPLX 3/FA/VIT C/BIOTIN 1 TAB TABLET GT SCH (10:08)
[2016-04-01] MEDS: PANTOPRAZOLE 40 MG VIAL IV SCH ×2 (10:08→22:42)
[2016-04-01] MEDS: DOCUSATE SODIUM LIQ 100 MG/10 ML UDC GT SCH ×2 (10:08→16:20)
[2016-04-01] MEDS: DAKINS QUARTER STRENGTH (0.125%) 480 ML BOTTLE TOP SCH (10:09)
[2016-04-01 10:11] LABS: BILIRUBIN,TOTAL 1.4 mg/dL (0.2-1.0); CREATININE 2.2 mg/dL (0.6-1.3); POTASSIUM 4.6 mmol/L (3.5-5.1); TOTAL PROTEIN, SERUM 5.2 g/dL (6.4-8.2)
[2016-04-01 10:34] LABS: ALBUMIN 1.3 g/dL (3.4-5.0)
[2016-04-01 10:53] LABS: CREATINE KINASE MB 0.5 ng/mL (0-3.6)
[2016-04-01] MEDS: HYDROMORPHONE 1 MG/1 ML DISP.SYRIN IV PRN ×2 (11:50→16:51)
[2016-04-01] MEDS: FLUCONAZOLE (100 MG) 100 MG TABLET NG SCH (12:23)
[2016-04-01] MEDS: DAPTOMYCIN 500 MG in IV NS 0.9% 50 ML IV SCH (12:25)
[2016-04-01] MEDS: DIGOXIN 0.125 MG TABLET PO SCH (13:00)
[2016-04-01] MEDS: IV NS 0.9% 1,000 ML IV PRN (13:37)
[2016-04-01] MEDS: RENAL NOVASOURCE 1,000 ML BOTTLE NG PRN ×2 (16:46→21:00)
[2016-04-01] MEDS: MEROPENEM 500 MG in IV NS 0.9% 50 ML IV SCH (18:38)
[2016-04-01] MEDS: SENNOSIDES 8.6 MG TABLET GT SCH (22:42)
[2016-04-01] MEDS: INSULIN REGULAR, HUMAN 100 UNIT/ML 3 ML VIAL SQ PRN (23:14)
[2016-04-02] VITALS: BP 98/48
[2016-04-02] MEDS ORDERED: RENAL NOVASOURCE 1,000 ML BOTTLE GT PRN (01:00)
[2016-04-02] MEDS: IPRATROPIUM NEB FS 0.5 MG/2.5 ML AMPUL.NEB NEB SCH ×4 (01:36→20:25)
[2016-04-02] MEDS ORDERED: RENAL NOVASOURCE 1,000 ML BOTTLE GT SCH (01:40)
[2016-04-02 04:00] VITALS: BP 98/46
[2016-04-02] MEDS: BLOOD SUGAR DIAGNOSTIC 1 EACH STRIP IN SCH ×4 (05:08→23:37)
[2016-04-02] MEDS: INSULIN REGULAR, HUMAN 100 UNIT/ML 3 ML VIAL SQ PRN ×4 (05:14→23:43)
[2016-04-02] MEDS: LEVOTHYROXINE SODIUM 25 MCG TABLET GT SCH (05:19)
[2016-04-02 08:00] VITALS: BP 98/48
[2016-04-02] MEDS ORDERED: SECONDARY IV SET 1 EA INFUS.SET MC ONE (08:04)
[2016-04-02] MEDS: HYDROMORPHONE 1 MG/1 ML DISP.SYRIN IV PRN ×2 (08:17→16:32)
[2016-04-02] MEDS: ALBUMIN 25% 25 GM in PREMIX 1 EA IV PRN (08:18)
[2016-04-02] MEDS: DOCUSATE SODIUM LIQ 100 MG/10 ML UDC GT SCH ×2 (09:15→16:32)
[2016-04-02] MEDS: FLUCONAZOLE (100 MG) 100 MG TABLET NG SCH (09:16)
[2016-04-02] MEDS: PANTOPRAZOLE 40 MG VIAL IV SCH ×2 (09:16→21:05)
[2016-04-02] MEDS: VIT B CMPLX 3/FA/VIT C/BIOTIN 1 TAB TABLET GT SCH (09:16)
[2016-04-02] MEDS: DAKINS QUARTER STRENGTH (0.125%) 480 ML BOTTLE TOP SCH (09:17)
[2016-04-02] MEDS: Z GUARD REMEDY 4 OZ OINT TP SCH (09:17)
[2016-04-02 12:00] VITALS: BP 98/42
[2016-04-02] MEDS: DIGOXIN 0.125 MG TABLET PO SCH (12:38)
[2016-04-02 16:00] VITALS: BP 89/42
[2016-04-02] MEDS: AMIKACIN 500 MG in IV D5W 100 ML IV PRN (16:32)
[2016-04-02] MEDS: MEROPENEM 500 MG in IV NS 0.9% 50 ML IV SCH (18:33)
[2016-04-02 20:00] VITALS: BP_SYST 113; BP_SYST 95; BP_DIAS 33; BP_DIAS 39
[2016-04-02] MEDS: SENNOSIDES 8.6 MG TABLET GT SCH (21:05)
[2016-04-03] VITALS (21 sets, daily range): BP systolic 78–113; BP diastolic 33–48
[2016-04-03] MEDS: IPRATROPIUM NEB FS 0.5 MG/2.5 ML AMPUL.NEB NEB SCH ×4 (02:24→19:40)
[2016-04-03] MEDS: BLOOD SUGAR DIAGNOSTIC 1 EACH STRIP IN SCH ×4 (05:00→23:33)
[2016-04-03] MEDS: INSULIN REGULAR, HUMAN 100 UNIT/ML 3 ML VIAL SQ PRN ×3 (05:51→23:34)
[2016-04-03] MEDS: LEVOTHYROXINE SODIUM 25 MCG TABLET GT SCH (06:18)
[2016-04-03] MEDS: PANTOPRAZOLE 40 MG VIAL IV SCH ×2 (08:50→22:07)
[2016-04-03] MEDS: VIT B CMPLX 3/FA/VIT C/BIOTIN 1 TAB TABLET GT SCH (08:50)
[2016-04-03] MEDS: FLUCONAZOLE (100 MG) 100 MG TABLET NG SCH (08:50)
[2016-04-03] MEDS: DOCUSATE SODIUM LIQ 100 MG/10 ML UDC GT SCH ×2 (08:50→17:16)
[2016-04-03] MEDS: Z GUARD REMEDY 4 OZ OINT TP SCH (08:51)
[2016-04-03] MEDS: DAKINS QUARTER STRENGTH (0.125%) 480 ML BOTTLE TOP SCH (08:51)
[2016-04-03] MEDS: HYDROMORPHONE 1 MG/1 ML DISP.SYRIN IV PRN (09:39)
[2016-04-03 10:05] LABS: BASOPHILS % (AUTO) 0.1 % (0.0-2.0); DIFF TOTAL % 100 %; EOSINOPHILS % (AUTO) 0.3 % (0.0-6.0); LYMPHOCYTES # (AUTO) 0.8 /CMM (0.8-4.8); LYMPHOCYTES % (AUTO) 8.3 % (20.0-44.0); MEAN CORPUSCULAR HEMOGLOBIN 30 PG (26.0-33.0); MEAN CORPUSCULAR HGB CONC 33 g/dl (31.0-36.0); MEAN CORPUSCULAR VOLUME 90 fL (82-100); MONOCYTES # (AUTO) 0.1 /CMM (0.1-1.30); MONOCYTES % (AUTO) 1.5 % (2.0-12.0); NEUTROPHILS # (AUTO) 9.1 /CMM (1.8-8.9); NEUTROPHILS % (AUTO) 89.8 % (43.0-81.0); PLATELET COUNT (AUTO) 95 /CMM (150-450); RED BLOOD CELL COUNT(AUTO) 2.26 MIL/uL (4.0-5.2); WHITE BLOOD COUNT (AUTO) 10.1 K/uL (4.3-11.0)
[2016-04-03 10:10] LABS: HEMATOCRIT 20 % (33-45); HEMOGLOBIN 6.7 g/dL (11.5-14.8)
[2016-04-03 10:16] LABS: CREATININE 2.5 mg/dL (0.6-1.3); POTASSIUM 3.4 mmol/L (3.5-5.1)
[2016-04-03 10:22] LABS: BAND % (MANUAL) 6 % (0.0-5.0); EOSINOPHILS % (MANUAL) 1 % (0-4); LYMPHOCYTES % (MANUAL) 6 % (16-48); PLATELET ESTIMATE DECREASED
[2016-04-03 10:23] LABS: ANISOCYTOSIS 1+; HYPOCHROMASIA 1+; POLYCHROMASIA 1+
[2016-04-03] MEDS: DAPTOMYCIN 500 MG in IV NS 0.9% 50 ML IV SCH (11:39)
[2016-04-03] MEDS ORDERED: IV NS 0.9% 250 ML IV ONE ×2 (13:30→14:48)
[2016-04-03] MEDS ORDERED: SECONDARY IV SET 1 EA INFUS.SET MC ONE ×2 (13:46→13:49)
[2016-04-03] MEDS: MICAFUNGIN SODIUM 100 MG in IV NS 0.9% 100 ML IV SCH (13:51)
[2016-04-03] MEDS ORDERED: IV SET PRIMARY PUMP SET 1 EA INFUS.SET MC ONE (14:01)
[2016-04-03] MEDS ORDERED: BLOOD IV SET 1 EA INFUS.SET MC ONE (14:48)
[2016-04-03] MEDS ORDERED: ACETAMINOPHEN 650 MG/20 ML UDC- FOR SA PATIENTS ONLY GT PRN (19:30)
[2016-04-03] MEDS ORDERED: ACETAMINOPHEN 650 MG/20.3 ML UDC ONE (19:54)
[2016-04-03] MEDS: SENNOSIDES 8.6 MG TABLET GT SCH (22:07)
[2016-04-04 00:23] VITALS: BP 110/40
[2016-04-04] MEDS: IPRATROPIUM NEB FS 0.5 MG/2.5 ML AMPUL.NEB NEB SCH ×4 (01:54→20:00)
[2016-04-04 04:18] VITALS: BP 127/47
[2016-04-04] MEDS: LEVOTHYROXINE SODIUM 25 MCG TABLET GT SCH (05:48)
[2016-04-04] MEDS: INSULIN REGULAR, HUMAN 100 UNIT/ML 3 ML VIAL SQ PRN ×2 (05:52→17:29)
[2016-04-04] MEDS: BLOOD SUGAR DIAGNOSTIC 1 EACH STRIP IN SCH ×3 (06:20→17:31)
[2016-04-04] MEDS ORDERED: ACETAMINOPHEN 650 MG/20.3 ML UDC ONE (06:46)
[2016-04-04] MEDS: ALBUMIN 25% 25 GM in PREMIX 1 EA IV PRN (06:51)
[2016-04-04 06:52] VITALS: BP 96/40
[2016-04-04] MEDS ORDERED: SECONDARY IV SET 1 EA INFUS.SET MC ONE (06:53)
[2016-04-04] MEDS ORDERED: ACETAMINOPHEN 650 MG/20.3 ML UDC PO PRN (07:30)
[2016-04-04 07:40] LABS: CALCIUM, SERUM 7.4 mg/dL (8.5-10.1); POTASSIUM 3.1 mmol/L (3.5-5.1)
[2016-04-04] MEDS: VIT B CMPLX 3/FA/VIT C/BIOTIN 1 TAB TABLET GT SCH (09:05)
[2016-04-04] MEDS: DOCUSATE SODIUM LIQ 100 MG/10 ML UDC GT SCH ×2 (09:05→17:01)
[2016-04-04] MEDS: PANTOPRAZOLE 40 MG VIAL IV SCH ×2 (09:06→21:16)
[2016-04-04] MEDS: DAKINS QUARTER STRENGTH (0.125%) 480 ML BOTTLE TOP SCH (09:23)
[2016-04-04] MEDS: Z GUARD REMEDY 4 OZ OINT TP SCH (09:24)
[2016-04-04] MEDS ORDERED: ONDANSETRON HCL/PF 4 MG/2 ML VIAL IV PRN (11:00)
[2016-04-04] MEDS: HYDROMORPHONE 1 MG/1 ML DISP.SYRIN IV PRN ×2 (11:52→17:28)
[2016-04-04 12:00] VITALS: BP 120/51
[2016-04-04] MEDS: MICAFUNGIN SODIUM 100 MG in IV NS 0.9% 100 ML IV SCH (13:36)
[2016-04-04] MEDS: ACETAMINOPHEN 650 MG/20.3 ML UDC NG PRN (14:34)
[2016-04-04] MEDS: MEROPENEM 500 MG in IV NS 0.9% 50 ML IV SCH (15:45)
[2016-04-04 16:00] VITALS: BP 103/39
[2016-04-04] MEDS: METOCLOPRAMIDE HCL 10 MG/2 ML VIAL IV SCH ×2 (17:01→21:17)
[2016-04-04] MEDS: RENAL NOVASOURCE 1,000 ML BOTTLE NG PRN (21:17)
[2016-04-04] MEDS: SENNOSIDES 8.6 MG TABLET GT SCH (21:17)
[2016-04-04 22:00] VITALS: BP 113/48
[2016-04-04 22:04] LABS: HEMOGLOBIN 8.4 g/dL (11.5-14.8)
[2016-04-05] VITALS (8 sets, daily range): BP systolic 96–112; BP diastolic 43–48
[2016-04-05] MEDS: BLOOD SUGAR DIAGNOSTIC 1 EACH STRIP IN SCH ×4 (00:06→17:53)
[2016-04-05] MEDS: INSULIN REGULAR, HUMAN 100 UNIT/ML 3 ML VIAL SQ PRN (00:10)
[2016-04-05] MEDS: ACETAMINOPHEN 650 MG/20.3 ML UDC NG PRN (00:54)
[2016-04-05] MEDS: IPRATROPIUM NEB FS 0.5 MG/2.5 ML AMPUL.NEB NEB SCH ×4 (02:03→20:32)
[2016-04-05] MEDS: METOCLOPRAMIDE HCL 10 MG/2 ML VIAL IV SCH ×4 (02:18→21:22)
[2016-04-05] MEDS: LEVOTHYROXINE SODIUM 25 MCG TABLET GT SCH ×2 (05:30→10:21)
[2016-04-05 07:43] LABS: CALCIUM, SERUM 7.6 mg/dL (8.5-10.1); CREATININE 2.8 mg/dL (0.6-1.3); POTASSIUM 3.4 mmol/L (3.5-5.1)
[2016-04-05] MEDS: PANTOPRAZOLE 40 MG VIAL IV SCH ×2 (10:20→21:22)
[2016-04-05] MEDS: VIT B CMPLX 3/FA/VIT C/BIOTIN 1 TAB TABLET GT SCH (10:21)
[2016-04-05] MEDS: DOCUSATE SODIUM LIQ 100 MG/10 ML UDC GT SCH ×2 (10:21→17:00)
[2016-04-05] MEDS: Z GUARD REMEDY 4 OZ OINT TP SCH (10:21)
[2016-04-05] MEDS: DAKINS QUARTER STRENGTH (0.125%) 480 ML BOTTLE TOP SCH (10:22)
[2016-04-05] MEDS: HYDROMORPHONE 1 MG/1 ML DISP.SYRIN IV PRN ×2 (10:30→19:55)
[2016-04-05] MEDS: MEROPENEM 500 MG in IV NS 0.9% 50 ML IV SCH (15:20)
[2016-04-05] MEDS: MICAFUNGIN SODIUM 100 MG in IV NS 0.9% 100 ML IV SCH (15:20)
[2016-04-05] MEDS: IV NS 0.9% 1,000 ML IV PRN (19:53)
[2016-04-05] MEDS: SENNOSIDES 8.6 MG TABLET GT SCH (21:23)
[2016-04-05] MEDS: RENAL NOVASOURCE 1,000 ML BOTTLE NG PRN (21:55)
[2016-04-06] VITALS (8 sets, daily range): BP systolic 97–110; BP diastolic 43–60
[2016-04-06] MEDS: BLOOD SUGAR DIAGNOSTIC 1 EACH STRIP IN SCH ×4 (00:28→17:00)
[2016-04-06] MEDS: IPRATROPIUM NEB FS 0.5 MG/2.5 ML AMPUL.NEB NEB SCH ×4 (00:48→19:56)
[2016-04-06] MEDS: HYDROMORPHONE 1 MG/1 ML DISP.SYRIN IV PRN ×2 (01:13→14:39)
[2016-04-06] MEDS: METOCLOPRAMIDE HCL 10 MG/2 ML VIAL IV SCH ×4 (03:17→21:47)
[2016-04-06] MEDS: RENAL NOVASOURCE 1,000 ML BOTTLE NG PRN (05:54)
[2016-04-06 08:33] LABS: CALCIUM, SERUM 7.6 mg/dL (8.5-10.1); POTASSIUM 3.5 mmol/L (3.5-5.1)
[2016-04-06] MEDS: Z GUARD REMEDY 4 OZ OINT TP SCH (08:38)
[2016-04-06] MEDS: VIT B CMPLX 3/FA/VIT C/BIOTIN 1 TAB TABLET GT SCH (08:38)
[2016-04-06] MEDS: PANTOPRAZOLE 40 MG VIAL IV SCH ×2 (08:38→21:47)
[2016-04-06] MEDS: DOCUSATE SODIUM LIQ 100 MG/10 ML UDC GT SCH ×2 (08:38→16:10)
[2016-04-06] MEDS: DAKINS QUARTER STRENGTH (0.125%) 480 ML BOTTLE TOP SCH (08:39)
[2016-04-06] MEDS: ACETAMINOPHEN 650 MG/20.3 ML UDC NG PRN (11:20)
[2016-04-06] MEDS: MEROPENEM 500 MG in IV NS 0.9% 50 ML IV SCH (13:51)
[2016-04-06] MEDS: MICAFUNGIN SODIUM 100 MG in IV NS 0.9% 100 ML IV SCH (13:51)
[2016-04-06] MEDS: SENNOSIDES 8.6 MG TABLET GT SCH (21:47)
[2016-04-07] VITALS (7 sets, daily range): BP systolic 98–117; BP diastolic 41–75
[2016-04-07] MEDS: IPRATROPIUM NEB FS 0.5 MG/2.5 ML AMPUL.NEB NEB SCH ×4 (01:44→20:19)
[2016-04-07] MEDS: METOCLOPRAMIDE HCL 10 MG/2 ML VIAL IV SCH ×4 (03:00→21:29)
[2016-04-07] MEDS: RENAL NOVASOURCE 1,000 ML BOTTLE NG PRN (05:19)
[2016-04-07] MEDS: BLOOD SUGAR DIAGNOSTIC 1 EACH STRIP IN SCH ×4 (06:13→17:02)
[2016-04-07] MEDS: LEVOTHYROXINE SODIUM 25 MCG TABLET GT SCH (06:42)
[2016-04-07] MEDS: HYDROMORPHONE 1 MG/1 ML DISP.SYRIN IV PRN (06:43)
[2016-04-07] MEDS: VIT B CMPLX 3/FA/VIT C/BIOTIN 1 TAB TABLET GT SCH (09:04)
[2016-04-07] MEDS: DOCUSATE SODIUM LIQ 100 MG/10 ML UDC GT SCH ×2 (09:04→16:31)
[2016-04-07] MEDS: PANTOPRAZOLE 40 MG VIAL IV SCH ×2 (09:04→21:31)
[2016-04-07] MEDS: Z GUARD REMEDY 4 OZ OINT TP SCH (09:05)
[2016-04-07] MEDS: DAKINS QUARTER STRENGTH (0.125%) 480 ML BOTTLE TOP SCH (09:05)
[2016-04-07] MEDS: MEROPENEM 500 MG in IV NS 0.9% 50 ML IV SCH (13:30)
[2016-04-07] MEDS: MICAFUNGIN SODIUM 100 MG in IV NS 0.9% 100 ML IV SCH (13:31)
[2016-04-07 15:48] LABS: CALCIUM, SERUM 7.6 mg/dL (8.5-10.1); CREATININE 2.9 mg/dL (0.6-1.3); POTASSIUM 3.9 mmol/L (3.5-5.1)
[2016-04-07] MEDS: INSULIN REGULAR, HUMAN 100 UNIT/ML 3 ML VIAL SQ PRN (16:54)
[2016-04-07] MEDS: SENNOSIDES 8.6 MG TABLET GT SCH (21:30)
[2016-04-08 00:21] VITALS: BP 107/51
[2016-04-08] MEDS: BLOOD SUGAR DIAGNOSTIC 1 EACH STRIP IN SCH ×4 (00:37→17:55)
[2016-04-08] MEDS: IV NS 0.9% 1,000 ML IV PRN (01:29)
[2016-04-08] MEDS ORDERED: IV SET PRIMARY PUMP SET 1 EA INFUS.SET MC ONE (01:39)
[2016-04-08] MEDS: RENAL NOVASOURCE 1,000 ML BOTTLE NG PRN (01:39)
[2016-04-08] MEDS: IPRATROPIUM NEB FS 0.5 MG/2.5 ML AMPUL.NEB NEB SCH ×3 (02:01→12:45)
[2016-04-08] MEDS: ACETAMINOPHEN 650 MG/20.3 ML UDC NG PRN (03:10)
[2016-04-08] MEDS: METOCLOPRAMIDE HCL 10 MG/2 ML VIAL IV SCH ×3 (03:11→15:26)
[2016-04-08] MEDS: INSULIN REGULAR, HUMAN 100 UNIT/ML 3 ML VIAL SQ PRN ×2 (06:32→12:12)
[2016-04-08] MEDS: LEVOTHYROXINE SODIUM 25 MCG TABLET GT SCH (06:41)
[2016-04-08 06:47] LABS: CALCIUM, SERUM 7.8 mg/dL (8.5-10.1); CREATININE 3.1 mg/dL (0.6-1.3); POTASSIUM 3.6 mmol/L (3.5-5.1)
[2016-04-08 08:00] VITALS: BP 138/49
[2016-04-08] MEDS: VIT B CMPLX 3/FA/VIT C/BIOTIN 1 TAB TABLET GT SCH (09:24)
[2016-04-08] MEDS: DOCUSATE SODIUM LIQ 100 MG/10 ML UDC GT SCH ×2 (09:24→17:30)
[2016-04-08] MEDS: PANTOPRAZOLE 40 MG VIAL IV SCH (09:24)
[2016-04-08] MEDS: DAKINS QUARTER STRENGTH (0.125%) 480 ML BOTTLE TOP SCH (09:25)
[2016-04-08] MEDS: Z GUARD REMEDY 4 OZ OINT TP SCH (09:26)
[2016-04-08 12:00] VITALS: BP 128/51
[2016-04-08] MEDS ORDERED: SECONDARY IV SET 1 EA INFUS.SET MC ONE (13:44)
[2016-04-08] MEDS: MICAFUNGIN SODIUM 100 MG in IV NS 0.9% 100 ML IV SCH (13:58)
[2016-04-08] MEDS: MEROPENEM 500 MG in IV NS 0.9% 50 ML IV SCH (13:58)
[2016-04-08 16:00] VITALS: BP 111/58
== END 2016-04-08 20:33 | DRG 710 ==
LOC: ER 10:37 → TELE 12:46 → SA 04-08 19:56
PROVIDERS: ADMIT Internal Medicine; ATTEND Internal Medicine
PROC: 05H533Z Insertion of Infusion Device into Right Subclavian Vein, Percutaneous Approach (ICD-10-PCS; principal; 2016-03-29)
PROC: 5A1955Z Respiratory Ventilation, Greater than 96 Consecutive Hours (ICD-10-PCS; principal; 2016-03-29)
PROC: 5A1D60Z (ICD-10-PCS; principal; 2016-03-29)
PROC: 30233N1 Transfusion of Nonautologous Red Blood Cells into Peripheral Vein, Percutaneous Approach (ICD-10-PCS; principal; 2016-03-29)
PROC: B546ZZA Ultrasonography of Right Subclavian Vein, Guidance (ICD-10-PCS; principal; 2016-03-29)
PROC: 0JB80ZZ Excision of Abdomen Subcutaneous Tissue and Fascia, Open Approach (ICD-10-PCS; 2016-03-30)
PROC: 0J980ZZ Drainage of Abdomen Subcutaneous Tissue and Fascia, Open Approach (ICD-10-PCS; 2016-03-30)
DX: A41.9 Sepsis, unspecified organism (principal); E43 Unspecified severe protein-calorie malnutrition; Z99.11 Dependence on respirator [ventilator] status; G93.40 Encephalopathy, unspecified; J96.11 Chronic respiratory failure with hypoxia; Z93.0 Tracheostomy status; E87.2 Acidosis; L89.159 Pressure ulcer of sacral region, unspecified stage; I12.0 Hypertensive chronic kidney disease with stage 5 chronic kidney disease or end stage renal disease; N18.6 End stage renal disease; D69.6 Thrombocytopenia, unspecified; E11.22 Type 2 diabetes mellitus with diabetic chronic kidney disease; K31.84 Gastroparesis; I48.0 Paroxysmal atrial fibrillation; D64.9 Anemia, unspecified; Z99.2 Dependence on renal dialysis; L02.211 Cutaneous abscess of abdominal wall; L03.311 Cellulitis of abdominal wall; Z95.1 Presence of aortocoronary bypass graft; Z85.3 Personal history of malignant neoplasm of breast; Z90.10 Acquired absence of unspecified breast and nipple; E03.9 Hypothyroidism, unspecified; E11.43 Type 2 diabetes mellitus with diabetic autonomic (poly)neuropathy; E66.01 Morbid (severe) obesity due to excess calories; I89.0 Lymphedema, not elsewhere classified; K94.29 Other complications of gastrostomy; Y83.3 Surgical operation with formation of external stoma as the cause of abnormal reaction of the patient, or of later complication, without mention of misadventure at the time of the procedure; B37.9 Candidiasis, unspecified; D63.1 Anemia in chronic kidney disease; E86.1 Hypovolemia; F03.90 Unspecified dementia, unspecified severity, without behavioral disturbance, psychotic disturbance, mood disturbance, and anxiety; I10 Essential (primary) hypertension; I05.0 Rheumatic mitral stenosis; I25.10 Atherosclerotic heart disease of native coronary artery without angina pectoris; I27.2 Other secondary pulmonary hypertension; I50.9 Heart failure, unspecified; I88.9 Nonspecific lymphadenitis, unspecified; R13.10 Dysphagia, unspecified; R65.20 Severe sepsis without septic shock; Z86.14 Personal history of Methicillin resistant Staphylococcus aureus infection; Z88.0 Allergy status to penicillin; Z90.49 Acquired absence of other specified parts of digestive tract
CPT/HCPCS: 31720; 36415; 36569; 71010-TC; 71250-TC; 72192-TC; 74000-TC; 74150-TC; 80048-TC; 80053-TC; 80076-TC; 80150; 80162-TC; 82553-TC; 82962-TC; 83605-TC; 83735-TC; 84100-TC; 84484-TC; 85025-TC; 85027-TC; 85730-TC; 86850-TC; 86901; 86921-TC; 87040-TC; 87070-TC; 87075-TC; 87081-TC; 87186-TC; 88305-TC; 88312-TC; 90935-TC; 93971-TC; 94003-TC; 97001-TC; 99082-TC; A4216; A4217; A4606; A6248; A6253; A6402; A6403; A7526; C9113; J0278; J0743; J0878; J0885; J1170; J1815; J2020; J2185; J2248; J2405; J2765; J3010; J3490; J7030; J7050; J7060; P9016-BL; P9047; Z7610

== ENCOUNTER 2016-04-08 16:12 | Inpatient (IN) | payer OTHER, MEDICARE ==
[~2016-04-08] VITALS: Ht 167.6 cm; Wt 90.7 kg
[~2016-04-08 16:12] MED LIST changes: -AMIN30LI2 GT; +AMIN30LI2 NG; -AMIO200T2 GT; -ATOR10TA GT; -BETA1TAB4 GT; +DIGO125T PO; -DOCU50LI GT; +DOCU50LI NG; -FOLI0.8T2 GT; +FURO10VI IV; +HEPA500014 SQ; +HYDR-4076 NG; +HYDR2TAB35 NG; -INSU100I19 SQ; -INSU100V3 SQ; +IPRA0.2S49 NEB; -LACT10SO29 GT; +LEVO25TA9 NG; -LEVO50TA8 GT; -LIDO30AD10 TP; -MELA3TAB GT; -METO5SOL GT; +METO5TAB2 NG; -MIDO10TA GT; -MORP10SO GT; +OMEP20TA68 GT; -OMEP40CA37 GT; -ONDA4TAB5 GT; +ONDA4TAB5 NG; +QUET25TA NG; -SENN8.6T6 GT; +SENN8.6T6 NG; +VIT1TABL44 NG
[2016-04-08 20:30] VITALS: BP 114/66
[2016-04-08] MEDS ORDERED: BISACODYL SUPP (10 MG) 10 MG/SUPP.RECT SUPP.RECT RC PRN (23:00)
[2016-04-08] MEDS ORDERED: DEXTROSE 50%-WATER 50 ML DISP.SYRIN IVP ONE (23:00)
[2016-04-08] MEDS ORDERED: HYDROGEL DRESSING 90 GM TUBE TP PRN (23:00)
[2016-04-08] MEDS ORDERED: ACETAMINOPHEN 650 MG/20 ML UDC- FOR SA PATIENTS ONLY NG PRN (23:00)
[2016-04-08] MEDS ORDERED: RENAL NOVASOURCE 1,000 ML BOTTLE GT PRN (23:30)
[2016-04-08] MEDS ORDERED: IPRATROPIUM BROMIDE 14 GM INHALER (or 12.9 GM) NEB PRN (23:30)
[2016-04-08] MEDS ORDERED: hydrALAZINE HCL 25 MG TABLET NG PRN (23:30)
[2016-04-08] MEDS ORDERED: METOCLOPRAMIDE HCL 5 MG/5 ML UDC NG PRN (23:30)
[2016-04-08] MEDS ORDERED: QUETIAPINE FUMARATE 25 MG TABLET NG PRN (23:30)
[2016-04-08] MEDS ORDERED: ONDANSETRON 4 MG TAB.RAPDIS NG PRN (23:30)
[2016-04-08] MEDS ORDERED: MICAFUNGIN SODIUM 100 MG in IV NS 0.9% 100 ML IV SCH (23:30)
[2016-04-08] MEDS ORDERED: POLYVINYL ALCOHOL 15 ML BOTTLE EACHEYE PRN (23:30)
[2016-04-08] MEDS ORDERED: MEROPENEM 500 MG in IV NS 0.9% 50 ML IV SCH (23:30)
[2016-04-08] MEDS ORDERED: IV NS 0.9% 1,000 ML BAG IV PRN (23:30)
[2016-04-09] MEDS ORDERED: DEXTROSE 50%-WATER 50 ML DISP.SYRIN IVP PRN
[2016-04-09 00:05] VITALS: BP 113/72
[2016-04-09] MEDS: HYDROMORPHONE HCL 2 MG TABLET PO PRN ×2 (00:18→13:18)
[2016-04-09] MEDS: IPRATROPIUM NEB FS 0.5 MG/2.5 ML AMPUL.NEB NEB SCH ×4 (01:23→20:21)
[2016-04-09 04:00] VITALS: BP 125/72
[2016-04-09 04:05] VITALS: BP 119/62
[2016-04-09] MEDS: TRAMADOL HCL 50 MG TABLET NG PRN (05:24)
[2016-04-09] MEDS ORDERED: INSULIN REGULAR, HUMAN 100 UNIT/ML 3 ML VIAL SQ PRN (06:00)
[2016-04-09] MEDS ORDERED: BLOOD SUGAR DIAGNOSTIC 1 EACH STRIP IN SCH (06:00)
[2016-04-09] MEDS: LEVOTHYROXINE SODIUM 50 MCG TABLET NG SCH ×2 (06:53→08:59)
[2016-04-09 08:12] VITALS: BP 101/61
[2016-04-09] MEDS: PROSOURCE / PROSTAT (PYXIS) 30 ML UDC NG SCH ×3 (08:59→17:25)
[2016-04-09] MEDS: DOCUSATE SODIUM LIQ 100 MG/10 ML UDC NG SCH ×2 (09:00→17:25)
[2016-04-09] MEDS: VIT B CMPLX 3/FA/VIT C/BIOTIN 1 TAB TABLET NG SCH (09:00)
[2016-04-09] MEDS: HEPARIN SODIUM, PORCINE 5000 UNITS/1 ML VIAL SQ SCH ×2 (09:00→21:56)
[2016-04-09] MEDS: FUROSEMIDE 40 MG TABLET NG SCH ×2 (09:00→17:00)
[2016-04-09] MEDS ORDERED: DAKINS QUARTER STRENGTH (0.125%) 480 ML BOTTLE TOP SCH (09:00)
[2016-04-09] MEDS: Z GUARD REMEDY 4 OZ OINT TP SCH (09:00)
[2016-04-09 12:00] VITALS: BP 136/66
[2016-04-09] MEDS ORDERED: DIGOXIN 0.25 MG TABLET NG SCH (13:00)
[2016-04-09] MEDS: MEROPENEM 500 MG in IV NS 0.9% 50 ML IV SCH (14:00)
[2016-04-09] MEDS: MICAFUNGIN SODIUM 100 MG in IV NS 0.9% 100 ML IV SCH (16:00)
[2016-04-09] MEDS ORDERED: MEROPENEM 1 G in IV NS 0.9% 100 ML IV SCH (18:00)
[2016-04-09 20:05] VITALS: BP 119/54
[2016-04-09] MEDS: ALBUTEROL HALF STRENGTH 1.25 MG/3 ML VIAL.NEB NEB SCH (20:21)
[2016-04-09] MEDS: SENNOSIDES 8.6 MG TABLET NG SCH (21:57)
[2016-04-09] MEDS: ATORVASTATIN 10 MG TABLET GT SCH (21:57)
[2016-04-09] MEDS ORDERED: SENNOSIDES 8.6 MG TABLET NG SCH (22:00)
[2016-04-09] MEDS: RENAL NOVASOURCE 1,000 ML BOTTLE GT PRN (23:48)
[2016-04-10 00:15] VITALS: BP 120/58
[2016-04-10] MEDS: HYDROMORPHONE HCL 2 MG TABLET PO PRN ×2 (01:18→12:23)
[2016-04-10] MEDS: IPRATROPIUM NEB FS 0.5 MG/2.5 ML AMPUL.NEB NEB SCH ×4 (02:13→19:30)
[2016-04-10] MEDS: ALBUTEROL HALF STRENGTH 1.25 MG/3 ML VIAL.NEB NEB SCH ×4 (02:14→19:30)
[2016-04-10 04:10] VITALS: BP 112/54
[2016-04-10 07:49] VITALS: BP 108/52
[2016-04-10] MEDS: VIT B CMPLX 3/FA/VIT C/BIOTIN 1 TAB TABLET NG SCH (09:00)
[2016-04-10] MEDS: DAKINS QUARTER STRENGTH (0.125%) 480 ML BOTTLE TOP SCH ×2 (09:00→21:15)
[2016-04-10] MEDS: Z GUARD REMEDY 4 OZ OINT TP SCH (09:00)
[2016-04-10] MEDS: DOCUSATE SODIUM LIQ 100 MG/10 ML UDC NG SCH ×2 (09:27→17:25)
[2016-04-10] MEDS: PROSOURCE / PROSTAT (PYXIS) 30 ML UDC NG SCH ×3 (09:27→17:25)
[2016-04-10] MEDS: LEVOTHYROXINE SODIUM 50 MCG TABLET NG SCH (09:29)
[2016-04-10] MEDS: HEPARIN SODIUM, PORCINE 5000 UNITS/1 ML VIAL SQ SCH ×2 (09:29→21:15)
[2016-04-10] MEDS: MEROPENEM 500 MG in IV NS 0.9% 50 ML IV SCH (14:35)
[2016-04-10] MEDS: MICAFUNGIN SODIUM 100 MG in IV NS 0.9% 100 ML IV SCH (15:10)
[2016-04-10] MEDS ORDERED: SILVER NITRATE APPLICATOR 1 EA BOX TP ONE ×2 (16:00)
[2016-04-10] MEDS ORDERED: LIDOCAINE 1%-EPI 1:100,000 20 ML VIAL IJ ONE (16:00)
[2016-04-10 20:10] VITALS: BP 116/58
[2016-04-10] MEDS: ATORVASTATIN 10 MG TABLET GT SCH (21:18)
[2016-04-10] MEDS: SENNOSIDES 8.6 MG TABLET NG SCH (21:19)
[2016-04-11] VITALS: BP 127/81
[2016-04-11] MEDS: IPRATROPIUM NEB FS 0.5 MG/2.5 ML AMPUL.NEB NEB SCH ×4 (00:58→20:08)
[2016-04-11] MEDS: ALBUTEROL HALF STRENGTH 1.25 MG/3 ML VIAL.NEB NEB SCH ×4 (00:58→20:08)
[2016-04-11] MEDS: HYDROMORPHONE HCL 2 MG TABLET NG PRN ×2 (04:09→11:23)
[2016-04-11 08:02] VITALS: BP 113/70
[2016-04-11] MEDS: VIT B CMPLX 3/FA/VIT C/BIOTIN 1 TAB TABLET NG SCH (09:00)
[2016-04-11] MEDS: DAKINS QUARTER STRENGTH (0.125%) 480 ML BOTTLE TOP SCH ×2 (09:00→21:18)
[2016-04-11] MEDS: HEPARIN SODIUM, PORCINE 5000 UNITS/1 ML VIAL SQ SCH ×2 (09:00→21:18)
[2016-04-11] MEDS: DOCUSATE SODIUM LIQ 100 MG/10 ML UDC NG SCH ×2 (09:00→17:00)
[2016-04-11] MEDS: PROSOURCE / PROSTAT (PYXIS) 30 ML UDC NG SCH ×3 (09:00→17:00)
[2016-04-11] MEDS: Z GUARD REMEDY 4 OZ OINT TP SCH (09:00)
[2016-04-11] MEDS: LEVOTHYROXINE SODIUM 50 MCG TABLET NG SCH (09:00)
[2016-04-11] MEDS: TRAMADOL HCL 50 MG TABLET NG PRN (16:29)
[2016-04-11] MEDS: MEROPENEM 500 MG in IV NS 0.9% 50 ML IV SCH (16:50)
[2016-04-11] MEDS: MICAFUNGIN SODIUM 100 MG in IV NS 0.9% 100 ML IV SCH (18:57)
[2016-04-11] MEDS: ATORVASTATIN 10 MG TABLET GT SCH (21:18)
[2016-04-11] MEDS: SENNOSIDES 8.6 MG TABLET NG SCH (21:18)
[2016-04-12] MEDS: RENAL NOVASOURCE 1,000 ML BOTTLE GT PRN (01:13)
[2016-04-12] MEDS: HYDROMORPHONE HCL 2 MG TABLET PO PRN (01:13)
[2016-04-12] MEDS: ALBUTEROL HALF STRENGTH 1.25 MG/3 ML VIAL.NEB NEB SCH ×4 (01:30→20:04)
[2016-04-12] MEDS: IPRATROPIUM NEB FS 0.5 MG/2.5 ML AMPUL.NEB NEB SCH ×4 (02:28→20:04)
[2016-04-12 07:53] VITALS: BP 138/44
[2016-04-12] MEDS: LEVOTHYROXINE SODIUM 50 MCG TABLET NG SCH (09:05)
[2016-04-12] MEDS: VIT B CMPLX 3/FA/VIT C/BIOTIN 1 TAB TABLET NG SCH (09:05)
[2016-04-12] MEDS: DOCUSATE SODIUM LIQ 100 MG/10 ML UDC NG SCH ×2 (09:05→17:04)
[2016-04-12] MEDS: PROSOURCE / PROSTAT (PYXIS) 30 ML UDC NG SCH ×3 (09:05→17:04)
[2016-04-12] MEDS: HEPARIN SODIUM, PORCINE 5000 UNITS/1 ML VIAL SQ SCH ×2 (09:06→20:56)
[2016-04-12] MEDS: HYDROMORPHONE HCL 2 MG TABLET NG PRN (11:24)
[2016-04-12] MEDS: DAKINS QUARTER STRENGTH (0.125%) 480 ML BOTTLE TOP SCH ×2 (11:30→20:56)
[2016-04-12] MEDS: Z GUARD REMEDY 4 OZ OINT TP SCH (11:30)
[2016-04-12] MEDS: MEROPENEM 500 MG in IV NS 0.9% 50 ML IV SCH (14:28)
[2016-04-12] MEDS ORDERED: HYDROGEN PEROXIDE 480 ML BOTTLE TP PRN (14:30)
[2016-04-12] MEDS: MICAFUNGIN SODIUM 100 MG in IV NS 0.9% 100 ML IV SCH (17:33)
[2016-04-12 19:50] VITALS: BP 122/63
[2016-04-12] MEDS: HYDROGEL DRESSING 90 GM TUBE TP SCH (20:56)
[2016-04-12] MEDS: HYDROGEN PEROXIDE 480 ML BOTTLE TP SCH (20:57)
[2016-04-12] MEDS: ATORVASTATIN 10 MG TABLET GT SCH (21:37)
[2016-04-12] MEDS: SENNOSIDES 8.6 MG TABLET NG SCH (21:37)
[2016-04-13] MEDS: IPRATROPIUM NEB FS 0.5 MG/2.5 ML AMPUL.NEB NEB SCH ×4 (01:29→20:01)
[2016-04-13] MEDS: ALBUTEROL HALF STRENGTH 1.25 MG/3 ML VIAL.NEB NEB SCH ×4 (01:29→20:01)
[2016-04-13] MEDS: LEVOTHYROXINE SODIUM 50 MCG TABLET NG SCH (05:50)
[2016-04-13] MEDS: HYDROMORPHONE HCL 2 MG TABLET NG PRN ×3 (05:50→17:30)
[2016-04-13 07:23] LABS: BASOPHILS % (AUTO) 0.5 % (0.0-2.0); DIFF TOTAL % 100 %; EOSINOPHILS # (AUTO) 0.1 /CMM (0.0-0.7); HEMATOCRIT 26 % (33-45); HEMOGLOBIN 8.7 g/dL (11.5-14.8); LYMPHOCYTES # (AUTO) 0.9 /CMM (0.8-4.8); LYMPHOCYTES % (AUTO) 15.9 % (20.0-44.0); MEAN CORPUSCULAR HEMOGLOBIN 30 PG (26.0-33.0); MEAN CORPUSCULAR HGB CONC 33 g/dl (31.0-36.0); MEAN CORPUSCULAR VOLUME 91 fL (82-100); MONOCYTES # (AUTO) 0.2 /CMM (0.1-1.30); MONOCYTES % (AUTO) 3.6 % (2.0-12.0); NEUTROPHILS # (AUTO) 4.7 /CMM (1.8-8.9); PLATELET COUNT (AUTO) 111 /CMM (150-450); RED BLOOD CELL COUNT(AUTO) 2.89 MIL/uL (4.0-5.2); WHITE BLOOD COUNT (AUTO) 5.9 K/uL (4.3-11.0)
[2016-04-13 08:06] VITALS: BP 112/55
[2016-04-13] MEDS: PROSOURCE / PROSTAT (PYXIS) 30 ML UDC NG SCH ×3 (09:55→17:35)
[2016-04-13] MEDS: HEPARIN SODIUM, PORCINE 5000 UNITS/1 ML VIAL SQ SCH ×2 (09:55→21:37)
[2016-04-13] MEDS: DOCUSATE SODIUM LIQ 100 MG/10 ML UDC NG SCH ×2 (09:55→17:35)
[2016-04-13] MEDS: VIT B CMPLX 3/FA/VIT C/BIOTIN 1 TAB TABLET NG SCH (09:55)
[2016-04-13] MEDS: MEROPENEM 500 MG in IV NS 0.9% 50 ML IV SCH (16:45)
[2016-04-13] MEDS: MICAFUNGIN SODIUM 100 MG in IV NS 0.9% 100 ML IV SCH (18:12)
[2016-04-13] MEDS: DAKINS QUARTER STRENGTH (0.125%) 480 ML BOTTLE TOP SCH ×2 (18:30→21:37)
[2016-04-13] MEDS: HYDROGEL DRESSING 90 GM TUBE TP SCH ×2 (18:30→21:37)
[2016-04-13] MEDS: HYDROGEN PEROXIDE 480 ML BOTTLE TP SCH ×2 (18:30→21:37)
[2016-04-13] MEDS: Z GUARD REMEDY 4 OZ OINT TP SCH (18:30)
[2016-04-13 19:56] VITALS: BP 119/55
[2016-04-13] MEDS: ATORVASTATIN 10 MG TABLET GT SCH (21:37)
[2016-04-13] MEDS: SENNOSIDES 8.6 MG TABLET NG SCH (21:37)
[2016-04-14] MEDS: ALBUTEROL HALF STRENGTH 1.25 MG/3 ML VIAL.NEB NEB SCH ×4 (02:08→20:15)
[2016-04-14] MEDS: IPRATROPIUM NEB FS 0.5 MG/2.5 ML AMPUL.NEB NEB SCH ×4 (02:08→20:15)
[2016-04-14] MEDS: HYDROMORPHONE HCL 2 MG TABLET NG PRN ×4 (03:02→21:21)
[2016-04-14] MEDS: LEVOTHYROXINE SODIUM 50 MCG TABLET NG SCH (06:22)
[2016-04-14 08:22] VITALS: BP 105/52
[2016-04-14] MEDS: DOCUSATE SODIUM LIQ 100 MG/10 ML UDC NG SCH ×2 (09:23→17:00)
[2016-04-14] MEDS: PROSOURCE / PROSTAT (PYXIS) 30 ML UDC NG SCH ×3 (09:23→17:00)
[2016-04-14] MEDS: VIT B CMPLX 3/FA/VIT C/BIOTIN 1 TAB TABLET NG SCH (09:23)
[2016-04-14] MEDS: HEPARIN SODIUM, PORCINE 5000 UNITS/1 ML VIAL SQ SCH ×2 (09:32→21:20)
[2016-04-14] MEDS: HYDROGEL DRESSING 90 GM TUBE TP SCH ×3 (13:00→22:00)
[2016-04-14] MEDS: HYDROGEN PEROXIDE 480 ML BOTTLE TP SCH ×2 (13:00→22:00)
[2016-04-14] MEDS: Z GUARD REMEDY 4 OZ OINT TP SCH (13:00)
[2016-04-14] MEDS: DAKINS QUARTER STRENGTH (0.125%) 480 ML BOTTLE TOP SCH ×2 (13:00→22:00)
[2016-04-14] MEDS ORDERED: DAPTOMYCIN 500 MG in IV NS 0.9% 50 ML IV SCH (14:00)
[2016-04-14] MEDS: MEROPENEM 500 MG in IV NS 0.9% 50 ML IV SCH (14:00)
[2016-04-14] MEDS: TRAMADOL HCL 50 MG TABLET NG PRN (15:57)
[2016-04-14] MEDS: MICAFUNGIN SODIUM 100 MG in IV NS 0.9% 100 ML IV SCH (18:48)
[2016-04-14 19:57] VITALS: BP 117/49
[2016-04-14] MEDS: DAPTOMYCIN 500 MG in IV NS 0.9% 50 ML IV SCH (20:09)
[2016-04-14] MEDS: SENNOSIDES 8.6 MG TABLET NG SCH (21:20)
[2016-04-15] MEDS: TRAMADOL HCL 50 MG TABLET NG PRN ×2 (00:30→18:40)
[2016-04-15] MEDS: ALBUTEROL HALF STRENGTH 1.25 MG/3 ML VIAL.NEB NEB SCH ×4 (01:30→20:11)
[2016-04-15] MEDS: IPRATROPIUM NEB FS 0.5 MG/2.5 ML AMPUL.NEB NEB SCH ×4 (01:30→20:11)
[2016-04-15] MEDS: HYDROMORPHONE HCL 2 MG TABLET NG PRN ×4 (03:13→22:27)
[2016-04-15] MEDS: LEVOTHYROXINE SODIUM 50 MCG TABLET NG SCH (06:38)
[2016-04-15 07:46] VITALS: BP 120/63
[2016-04-15] MEDS: DOCUSATE SODIUM LIQ 100 MG/10 ML UDC NG SCH ×2 (09:48→16:23)
[2016-04-15] MEDS: VIT B CMPLX 3/FA/VIT C/BIOTIN 1 TAB TABLET NG SCH (09:48)
[2016-04-15] MEDS: PROSOURCE / PROSTAT (PYXIS) 30 ML UDC NG SCH ×3 (09:48→16:23)
[2016-04-15] MEDS: HEPARIN SODIUM, PORCINE 5000 UNITS/1 ML VIAL SQ SCH ×2 (09:49→21:06)
[2016-04-15] MEDS: HYDROGEL DRESSING 90 GM TUBE TP SCH ×4 (11:00→21:06)
[2016-04-15] MEDS: Z GUARD REMEDY 4 OZ OINT TP SCH (11:00)
[2016-04-15] MEDS: DAKINS QUARTER STRENGTH (0.125%) 480 ML BOTTLE TOP SCH ×2 (11:00→21:06)
[2016-04-15] MEDS: HYDROGEN PEROXIDE 480 ML BOTTLE TP SCH ×2 (11:00→21:06)
[2016-04-15] MEDS: MEROPENEM 500 MG in IV NS 0.9% 50 ML IV SCH (16:00)
[2016-04-15] MEDS: RENAL NOVASOURCE 1,000 ML BOTTLE GT PRN (16:24)
[2016-04-15 19:57] VITALS: BP 95/45
[2016-04-15] MEDS: FLUCONAZOLE IN NS,PREMIX 200 MG in PREMIX 1 EA IV SCH ×2 (21:05)
[2016-04-15] MEDS: SENNOSIDES 8.6 MG TABLET NG SCH (21:06)
[2016-04-16] MEDS: ALBUTEROL HALF STRENGTH 1.25 MG/3 ML VIAL.NEB NEB SCH ×4 (00:37→20:03)
[2016-04-16] MEDS: IPRATROPIUM NEB FS 0.5 MG/2.5 ML AMPUL.NEB NEB SCH ×4 (00:37→20:03)
[2016-04-16] MEDS: LEVOTHYROXINE SODIUM 50 MCG TABLET NG SCH (05:59)
[2016-04-16] MEDS: HYDROMORPHONE HCL 2 MG TABLET NG PRN ×3 (06:01→12:26)
[2016-04-16 07:47] VITALS: BP 111/58
[2016-04-16] MEDS: DOCUSATE SODIUM LIQ 100 MG/10 ML UDC NG SCH ×2 (09:23→17:28)
[2016-04-16] MEDS: PROSOURCE / PROSTAT (PYXIS) 30 ML UDC NG SCH ×3 (09:23→17:28)
[2016-04-16] MEDS: VIT B CMPLX 3/FA/VIT C/BIOTIN 1 TAB TABLET NG SCH (09:23)
[2016-04-16] MEDS: HEPARIN SODIUM, PORCINE 5000 UNITS/1 ML VIAL SQ SCH ×2 (09:24→21:00)
[2016-04-16] MEDS: HYDROGEL DRESSING 90 GM TUBE TP SCH ×4 (13:30→21:00)
[2016-04-16] MEDS: DAKINS QUARTER STRENGTH (0.125%) 480 ML BOTTLE TOP SCH ×2 (13:30→21:00)
[2016-04-16] MEDS: HYDROGEN PEROXIDE 480 ML BOTTLE TP SCH ×2 (13:30→21:00)
[2016-04-16] MEDS: Z GUARD REMEDY 4 OZ OINT TP SCH (13:30)
[2016-04-16] MEDS: MEROPENEM 500 MG in IV NS 0.9% 50 ML IV SCH (14:00)
[2016-04-16] MEDS: DAPTOMYCIN 500 MG in IV NS 0.9% 50 ML IV SCH (16:00)
[2016-04-16] MEDS ORDERED: HYDROMORPHONE HCL 2 MG TABLET NG PRN (18:30)
[2016-04-16 20:00] VITALS: BP 104/47
[2016-04-16] MEDS: FLUCONAZOLE IN NS,PREMIX 200 MG in PREMIX 1 EA IV SCH ×2 (21:00)
[2016-04-16] MEDS: SENNOSIDES 8.6 MG TABLET NG SCH (22:00)
[2016-04-17] MEDS: ALBUTEROL HALF STRENGTH 1.25 MG/3 ML VIAL.NEB NEB SCH ×4 (01:28→19:18)
[2016-04-17] MEDS: IPRATROPIUM NEB FS 0.5 MG/2.5 ML AMPUL.NEB NEB SCH ×4 (01:28→19:18)
[2016-04-17] MEDS: HYDROMORPHONE HCL 2 MG TABLET NG PRN ×3 (04:35→15:00)
[2016-04-17] MEDS: LEVOTHYROXINE SODIUM 50 MCG TABLET NG SCH (06:18)
[2016-04-17] MEDS: RENAL NOVASOURCE 1,000 ML BOTTLE GT PRN (06:20)
[2016-04-17 08:20] VITALS: BP 98/48
[2016-04-17] MEDS: DOCUSATE SODIUM LIQ 100 MG/10 ML UDC NG SCH ×2 (08:49→16:28)
[2016-04-17] MEDS: PROSOURCE / PROSTAT (PYXIS) 30 ML UDC NG SCH ×3 (08:49→16:28)
[2016-04-17] MEDS: VIT B CMPLX 3/FA/VIT C/BIOTIN 1 TAB TABLET NG SCH (08:49)
[2016-04-17] MEDS: HEPARIN SODIUM, PORCINE 5000 UNITS/1 ML VIAL SQ SCH ×2 (08:59→20:55)
[2016-04-17] MEDS: HYDROGEL DRESSING 90 GM TUBE TP SCH ×4 (09:00→20:56)
[2016-04-17] MEDS: Z GUARD REMEDY 4 OZ OINT TP SCH (09:00)
[2016-04-17] MEDS: HYDROGEN PEROXIDE 480 ML BOTTLE TP SCH ×2 (09:00→20:56)
[2016-04-17] MEDS: DAKINS QUARTER STRENGTH (0.125%) 480 ML BOTTLE TOP SCH ×2 (09:00→20:55)
[2016-04-17] MEDS: MEROPENEM 500 MG in IV NS 0.9% 50 ML IV SCH (13:26)
[2016-04-17 20:00] VITALS: BP 97/58
[2016-04-17] MEDS: SENNOSIDES 8.6 MG TABLET NG SCH (21:39)
[2016-04-17] MEDS: FLUCONAZOLE IN NS,PREMIX 200 MG in PREMIX 1 EA IV SCH ×2 (21:44)
[2016-04-18] MEDS: ALBUTEROL HALF STRENGTH 1.25 MG/3 ML VIAL.NEB NEB SCH ×3 (01:29→19:34)
[2016-04-18] MEDS: IPRATROPIUM NEB FS 0.5 MG/2.5 ML AMPUL.NEB NEB SCH ×3 (01:29→19:34)
[2016-04-18] MEDS: LEVOTHYROXINE SODIUM 50 MCG TABLET NG SCH (05:22)
[2016-04-18] MEDS: HYDROMORPHONE HCL 2 MG TABLET NG PRN ×2 (05:23→19:14)
[2016-04-18 08:18] VITALS: BP 101/53
[2016-04-18] MEDS ORDERED: NEOMY SULF/BACITRAC ZN/POLY 15 GM TUBE TP SCH (09:00)
[2016-04-18] MEDS: HEPARIN SODIUM, PORCINE 5000 UNITS/1 ML VIAL SQ SCH ×2 (09:41→21:03)
[2016-04-18] MEDS: DOCUSATE SODIUM LIQ 100 MG/10 ML UDC NG SCH ×2 (09:42→17:53)
[2016-04-18] MEDS: VIT B CMPLX 3/FA/VIT C/BIOTIN 1 TAB TABLET NG SCH (09:42)
[2016-04-18] MEDS: PROSOURCE / PROSTAT (PYXIS) 30 ML UDC NG SCH ×3 (09:42→17:53)
[2016-04-18] MEDS: MEROPENEM 500 MG in IV NS 0.9% 50 ML IV SCH (14:33)
[2016-04-18] MEDS: Z GUARD REMEDY 4 OZ OINT TP SCH (15:00)
[2016-04-18] MEDS: HYDROGEN PEROXIDE 480 ML BOTTLE TP SCH ×2 (15:00→21:03)
[2016-04-18] MEDS: DAKINS QUARTER STRENGTH (0.125%) 480 ML BOTTLE TOP SCH ×2 (15:00→21:03)
[2016-04-18] MEDS: NEOMY SULF/BACITRAC ZN/POLY 15 GM TUBE TP SCH ×2 (15:00→21:04)
[2016-04-18] MEDS: HYDROGEL DRESSING 90 GM TUBE TP SCH ×4 (15:00→21:03)
[2016-04-18] MEDS: DAPTOMYCIN 500 MG in IV NS 0.9% 50 ML IV SCH (16:42)
[2016-04-18 19:57] VITALS: BP 106/57
[2016-04-18] MEDS: FLUCONAZOLE IN NS,PREMIX 200 MG in PREMIX 1 EA IV SCH ×2 (20:26)
[2016-04-18] MEDS: SENNOSIDES 8.6 MG TABLET NG SCH (21:22)
[2016-04-19] MEDS: ALBUTEROL HALF STRENGTH 1.25 MG/3 ML VIAL.NEB NEB SCH ×3 (01:27→13:30)
[2016-04-19] MEDS: IPRATROPIUM NEB FS 0.5 MG/2.5 ML AMPUL.NEB NEB SCH ×3 (01:27→13:30)
[2016-04-19] MEDS: LEVOTHYROXINE SODIUM 50 MCG TABLET NG SCH (05:45)
[2016-04-19] MEDS: HYDROMORPHONE HCL 2 MG TABLET NG PRN (05:49)
[2016-04-19 06:57] LABS: BILIRUBIN,TOTAL 1.1 mg/dL (0.2-1.0); CALCIUM, SERUM 9.2 mg/dL (8.5-10.1); POTASSIUM 4.1 mmol/L (3.5-5.1); TOTAL PROTEIN, SERUM 6.3 g/dL (6.4-8.2)
[2016-04-19 06:58] LABS: ALBUMIN 1.3 g/dL (3.4-5.0)
[2016-04-19 07:24] LABS: BASOPHILS % (AUTO) 0.1 % (0.0-2.0); DIFF TOTAL % 100 %; EOSINOPHILS % (AUTO) 0.1 % (0.0-6.0); HEMATOCRIT 32 % (33-45); HEMOGLOBIN 10.2 g/dL (11.5-14.8); LYMPHOCYTES # (AUTO) 0.9 /CMM (0.8-4.8); LYMPHOCYTES % (AUTO) 4.9 % (20.0-44.0); MEAN CORPUSCULAR HEMOGLOBIN 30 PG (26.0-33.0); MEAN CORPUSCULAR HGB CONC 32 g/dl (31.0-36.0); MEAN CORPUSCULAR VOLUME 95 fL (82-100); MONOCYTES # (AUTO) 2.6 /CMM (0.1-1.30); NEUTROPHILS # (AUTO) 14.8 /CMM (1.8-8.9); NEUTROPHILS % (AUTO) 80.9 % (43.0-81.0); RED BLOOD CELL COUNT(AUTO) 3.36 MIL/uL (4.0-5.2); WHITE BLOOD COUNT (AUTO) 18.4 K/uL (4.3-11.0)
[2016-04-19 07:54] LABS: PLATELET COUNT (AUTO) 100 /CMM (150-450)
[2016-04-19 08:34] LABS: ABG BASE EXCESS -7.5 mmol/L; ABG PCO2 79.4 mmHg (35.0-45.0); ABG PO2 48.4 mmHg (75.0-100.0); ABG TOTAL HEMOGLOBIN 9.5 G/dL (12.0-16.0); AaDO2 365.4 mmHg; O2Hb 77.7 % (94.0-97.0)
[2016-04-19] MEDS ORDERED: IPRA0.2S49 NEB (09:40)
[2016-04-19] MEDS ORDERED: HYDR2TAB35 NG (09:40)
[2016-04-19] MEDS ORDERED: ALBU1.257 NEB (09:40)
[2016-04-19] MEDS ORDERED: HYDR2TAB35 PO (09:40)
[2016-04-19 12:27] LABS: BAND % (MANUAL) 6 % (0.0-5.0); LYMPHOCYTES % (MANUAL) 8 % (16-48)
[2016-04-19 12:28] LABS: ANISOCYTOSIS 2+; PLATELET ESTIMATE DECREASED
[2016-04-19 12:29] LABS: OVALOCYTES 1+
[2017-03-16] MEDS ORDERED: TUBERCULIN,PURIF.PROT.DERIV. 5 TU/0.1 ML VIAL ID SCH (09:00)
== END 2016-04-19 12:50 | disposition short-term general hospital (02) | DRG 130 ==
LOC: UNDOADMIN 16:12 → SA 16:12
PROVIDERS: ADMIT Internal Medicine; ATTEND Internal Medicine Pulmonary Disease
PROC: 5A1955Z Respiratory Ventilation, Greater than 96 Consecutive Hours (ICD-10-PCS; principal; 2016-04-08)
PROC: 05H533Z Insertion of Infusion Device into Right Subclavian Vein, Percutaneous Approach (ICD-10-PCS; 2016-04-09)
PROC: 0JB80ZZ Excision of Abdomen Subcutaneous Tissue and Fascia, Open Approach (ICD-10-PCS; 2016-04-13)
DX: J96.11 Chronic respiratory failure with hypoxia (principal); E43 Unspecified severe protein-calorie malnutrition; G93.40 Encephalopathy, unspecified; L89.159 Pressure ulcer of sacral region, unspecified stage; N18.6 End stage renal disease; D69.6 Thrombocytopenia, unspecified; I50.30 Unspecified diastolic (congestive) heart failure; E11.22 Type 2 diabetes mellitus with diabetic chronic kidney disease; I48.0 Paroxysmal atrial fibrillation; E66.01 Morbid (severe) obesity due to excess calories; Z93.1 Gastrostomy status; J96.12 Chronic respiratory failure with hypercapnia; I25.10 Atherosclerotic heart disease of native coronary artery without angina pectoris; Z99.2 Dependence on renal dialysis; D64.9 Anemia, unspecified; E03.9 Hypothyroidism, unspecified; I05.0 Rheumatic mitral stenosis; L03.311 Cellulitis of abdominal wall; Z22.322 Carrier or suspected carrier of Methicillin resistant Staphylococcus aureus; Z85.3 Personal history of malignant neoplasm of breast; Z86.14 Personal history of Methicillin resistant Staphylococcus aureus infection; Z90.12 Acquired absence of left breast and nipple; Z90.49 Acquired absence of other specified parts of digestive tract; Z92.21 Personal history of antineoplastic chemotherapy; Z99.11 Dependence on respirator [ventilator] status
CPT/HCPCS: 31720; 36415; 36600; 80053-TC; 80162-TC; 82550-TC; 82962-TC; 85025-TC; 87040-TC; 87186-TC; 88305-TC; 88312-TC; 94002-TC; 94003-TC; 97003-TC; A4216; A4606; A4623; A6248; A6253; A6402; A7526; J0878; J1450; J1644; J1815; J2185; J2248; J3490; J7030; L8501; Z7610

== ENCOUNTER 2016-04-19 08:39 | Inpatient (IN) | payer OTHER, MEDICARE ==
[2016-04-19] VITALS (53 sets, daily range): BP systolic 54–115; BP diastolic 29–87
[~2016-04-19] VITALS: Ht 167.6 cm; Wt 90.7 kg
--- NOTE | 2016-04-19 08:39 | NUR ---
RECIEVED PT TO ED BED 05, PT WAS BB STAFF FROM SUB-ACUTE FORM MISSED DIALYSIS DUE TO NO HD ACCESS AND HYPOTENSION. LAST DIALYSIS ON MONDAY. PER REPORT, HD ACCESS WAS REMOVED DUE +BLOOD CULTURE. BP ON LOW 70'S IN THE SUB ACUTE FACILITY. PT IS NON VERBAL, NON RESPONSIVE, CHRONIC TRACH AND VENT DEPENDENT. ANASARCA NOTED, FLUID WEAPING FROM BUE AND RT SIDE OF ABDOMEN. BRUISE TO RT UPPER ARM NOTED. DRESSING TO RT CHEST WALL AND LT ABDOMINAL AREA.
[2016-04-19 09:26] LABS: EOSINOPHILS % (AUTO) 0.4 % (0.0-6.0); HEMATOCRIT 27 % (33-45); LYMPHOCYTES # (AUTO) 0.2 /CMM (0.8-4.8); LYMPHOCYTES % (AUTO) 4.3 % (20.0-44.0); MEAN CORPUSCULAR HEMOGLOBIN 31 PG (26.0-33.0); MEAN CORPUSCULAR HGB CONC 33 g/dl (31.0-36.0); MEAN CORPUSCULAR VOLUME 94 fL (82-100); MONOCYTES # (AUTO) 0.7 /CMM (0.1-1.30); MONOCYTES % (AUTO) 14.7 % (2.0-12.0); NEUTROPHILS # (AUTO) 3.7 /CMM (1.8-8.9); NEUTROPHILS % (AUTO) 80.6 % (43.0-81.0); RDW COEFFICIENT OF VARIATION 22.9 (11.5-15.0); RED BLOOD CELL COUNT(AUTO) 2.87 MIL/uL (4.0-5.2); WHITE BLOOD COUNT (AUTO) 4.5 K/uL (4.3-11.0)
--- NOTE | 2016-04-19 09:30 | NUR ---
ER MD MADE AWARE THAT BLOOD PRESSURE IS 63/36. VERBALLY ORDERED LEVOPHED.
[2016-04-19 09:34] LABS: CARBON DIOXIDE 22 mmol/L (21-32); CHLORIDE 102 mmol/L (98-107); CREATININE 3.1 mg/dL (0.6-1.3); GFR 15 mL/min (>60); GLUCOSE 94 mg/dL (74-106); POTASSIUM 3.5 mmol/L (3.5-5.1); SODIUM SERUM 133 mmol/L (136-145); UREA NITROGEN, BLOOD 54 mg/dL (7-18)
[2016-04-19 09:37] LABS: HEMOGLOBIN 8.8 g/dL (11.5-14.8)
[2016-04-19 09:39] LABS: PLATELET COUNT (AUTO) 98 /CMM (150-450)
[2016-04-19] MEDS ORDERED: HYDR2TAB35 PO (09:40)
[2016-04-19] MEDS ORDERED: ALBU1.257 NEB (09:40)
[2016-04-19] MEDS ORDERED: IPRA0.2S49 NEB (09:40)
[2016-04-19] MEDS ORDERED: HYDR2TAB35 NG (09:40)
[2016-04-19 09:44] LABS: ALANINE AMINOTRANSFERASE < 6 U/L (12-78); ALKALINE PHOSPHATASE 286 U/L (46-116); ASPARTATE AMINOTRANSFERASE 19 U/L (15-37); BILIRUBIN,DIRECT 0.5 mg/dL (0.0-0.2); TOTAL PROTEIN, SERUM 5.5 g/dL (6.4-8.2)
[2016-04-19] MEDS ORDERED: IV SET PRIMARY PUMP SET 1 EA INFUS.SET MC ONE ×5 (09:44→19:57)
[2016-04-19 09:45] LABS: ALBUMIN 1.1 g/dL (3.4-5.0)
[2016-04-19 09:46] LABS: TROPONIN I 0.023 ng/mL (0.00-0.056)
[2016-04-19 09:48] LABS: INR 1.11 (0.87-1.13)
[2016-04-19] MEDS ORDERED: NOREPINEPHRINE 16 MG in IV D5W 500 ML IV PRN (10:00)
--- NOTE | 2016-04-19 10:01 | NUR ---
ashley -- called sabina
--- NOTE | 2016-04-19 10:01 | NUR ---
ashley -- called jorge
[2016-04-19] MEDS ORDERED: CEFTAZIDIME 1 G in IV D5W 50 ML IV ONE (10:30)
--- NOTE | 2016-04-19 10:30 | NUR ---
DR REYNAGA WILL NOT ORDER THE 30ML/KG PER SEPSIS PROTOCOL D/T FLUID OVERLOAD.
--- NOTE | 2016-04-19 10:46 | NUR ---
Family at BS.
--- NOTE | 2016-04-19 10:53 | NUR ---
ashley-- called jorge
[2016-04-19 11:09] LABS: LACTIC ACID 4.3 mmol/L (0.4-2.0)
--- NOTE | 2016-04-19 11:17 | NUR ---
ashley-- called lon whitman
[2016-04-19 11:20] LABS: ANISOCYTOSIS 3+; PLATELET ESTIMATE DECREASED
[2016-04-19 11:21] LABS: OVALOCYTES 1+
[2016-04-19] MEDS ORDERED: DOSING PER PHARMACY-AMIKACI IV XX PRN (11:30)
--- NOTE | 2016-04-19 11:46 | NUR ---
CALLED HOME NUMBER, , JUST KEPT RINGING, NO ANSWER
--- NOTE | 2016-04-19 11:51 | NUR ---
Innovation Manager at for blood draw.
[2016-04-19] MEDS ORDERED: ALBUMIN 25% 12.5 GM/50 ML BOTTLE IV ONE (12:00)
--- NOTE | 2016-04-19 12:01 | NUR ---
Report given to CHIQUIS Camarena for [facility] ICU 260
[2016-04-19 12:02] LABS: ABG BASE EXCESS -8.3 mmol/L; ABG OXYGEN SATURATION 89.9 % (92.0-98.5); ABG PCO2 46.3 mmHg (35.0-45.0); ABG PH 7.229 (7.350-7.450); ABG PO2 56.9 mmHg (75.0-100.0); ABG TOTAL HEMOGLOBIN 9.5 G/dL (12.0-16.0); AaDO2 609.8 mmHg; COHb 1.1 % (0.5-1.5); MetHb 0.5 % (0.0-1.5); O2Hb 88.5 % (94.0-97.0); PEEP,BG 0 cm H2O; SITE, ABG Right Brachial; VT, ABG 500 mL
[2016-04-19] MEDS ORDERED: FEE PK DOSING 1 MIN EA MC ONE (12:59)
[2016-04-19] MEDS ORDERED: ONDANSETRON HCL/PF 4 MG/2 ML VIAL IV PRN (13:00)
--- NOTE | 2016-04-19 13:15 | NUR ---
ADVERTISING SALES EXECUTIVE ADMITTED INTO ICU FROM ER VIA BED. PT WAS SENT TO ER FROM SUBACUTE FOR HYPOTENSION. LEVOPHED INFUSING PER LEFT ARM MIDLINE. PT CHRONIC TRACH/VENT. LOCALIZES TO PAIN. NONVERBAL. TRACH INTACT, CONNECTED TO VENT. NGT INTACT, POSITION VERIFIED BY ASPIRATION OF GASTRIC CONTENTS. PT HAD EPISODE OF N/V EN ROUTE TO ICU. NGT CONNECTED TO LOW SUCTION. PT HAS SHUNT IN LEFT ARM. MULTIPLE SKIN TEARS SEEN ON RIGHT ARM, CHEST AND BACK. LARGE DRESSING OVER WOUND ON LEFT CHEST. SMALL PUNCTURE-LIKE WOUND ON UPPER ABDOMEN ON TOP OF HEALED SURGICAL INCISION; OOZING PURULENT DRAINAGE. SOFT POCKET OF DRAINAGE PALPATED OVER PUNCTURE-LIKE WOUND. LEFT ARM EDEMATOUS WITH MULTIPLE SMALL AREAS WITH COPIOUS SEROUS DRAINAGE.
[2016-04-19] MEDS ORDERED: NOREPINEPHRINE 8 MG in IV D5W 500 ML IV PRN (14:00)
[2016-04-19] MEDS ORDERED: AMIKACIN 500 MG in IV D5W 100 ML IV ONE (14:00)
--- NOTE | 2016-04-19 14:48 | NUR ---
PATIENT NOT STABLE TO COME FOR CT ABDOMEN PELVIS PER RN.
[2016-04-19 14:50] LABS: ABG BASE EXCESS -8.8 mmol/L; ABG OXYGEN SATURATION 96.4 % (92.0-98.5); ABG PCO2 47.2 mmHg (35.0-45.0); ABG PH 7.214 (7.350-7.450); ABG TOTAL HEMOGLOBIN 9.6 G/dL (12.0-16.0); AaDO2 572.8 mmHg; COHb 1.2 % (0.5-1.5); MetHb 1.3 % (0.0-1.5); PEEP,BG 0 cm H2O; SITE, ABG Right Brachial; VENT MODE, BG AC 20 / RR 28; VT, ABG 500 mL
[2016-04-19] MEDS ORDERED: PHENYLEPHRINE 20 MG in IV D5W 250 ML IV PRN (15:00)
--- NOTE | 2016-04-19 16:11 | NUR ---
PT IS NOT STABLE FOR CT SCAN, RN WILL CALL WHEN READY.
[2016-04-19] MEDS ORDERED: PROPOFOL 100 ML IV PRN (17:00)
[2016-04-19 17:01] LABS: ABG BASE EXCESS -9.8 mmol/L; ABG PCO2 43.3 mmHg (35.0-45.0); ABG TOTAL HEMOGLOBIN 9.9 G/dL (12.0-16.0); AaDO2 541.7 mmHg; COHb 1.1 % (0.5-1.5); MetHb 1.2 % (0.0-1.5); O2Hb 95.7 % (94.0-97.0); PEEP,BG 0 cm H2O; SITE, ABG Left Radial; VT, ABG 550 mL
[2016-04-19] MEDS: IPRATROPIUM NEB FS 0.5 MG/2.5 ML AMPUL.NEB NEB SCH ×2 (17:10→19:41)
[2016-04-19] MEDS: ALBUTEROL HALF STRENGTH 1.25 MG/3 ML VIAL.NEB NEB SCH ×2 (17:10→19:41)
[2016-04-19] MEDS: PHENYLEPHRINE 40 MG in IV D5W 250 ML IV PRN ×2 (19:47→22:29)
[2016-04-19] MEDS: NOREPINEPHRINE 16 MG in IV D5W 500 ML IV PRN (19:52)
[2016-04-19] MEDS ORDERED: IV NS 0.9% 250 ML IV ONE (19:57)
[2016-04-19] MEDS ORDERED: SECONDARY IV SET 1 EA INFUS.SET MC ONE ×2 (19:59→22:29)
--- NOTE | 2016-04-19 20:04 | NUR ---
ANALYSIS OR RESEARCH SAFETY INSPECTOR. INITIAL ASSESSMENT. RECEIVED THE PT REST ON THE BED. OPEN EYES. DOES NOT FOLLOW COMMANDS. TRACHN TO VENT CONNECTED. PORTEX #7. AC 26, TV 600, FIO2 100%. SA5 100%. ACID DUMPER SHOWING AFIB. IV RT UPPER ARM MID LINE. LEVOPHED 40MCG/MIN, ROSS 150MCG/MIN. LT CHEST HD CATH. DIALYSIS RUNNING. MULTIPLE WOUND. LT HAND WEEPING. ÁNGELA TOES DISCOLORATION NOTED. RT NARE NGT LOW INTERMITTENT SUCTION. WILL CONTINUE TO MONITOR VITALS. PT IS UNSTABLE.
[2016-04-19] MEDS ORDERED: FLUCONAZOLE -DEXT PREMIX 200 MG in PREMIX 1 EA IV SCH (21:00)
[2016-04-19 21:01] LABS: ABG BASE EXCESS -6.4 mmol/L; ABG OXYGEN SATURATION 96.6 % (92.0-98.5); ABG PCO2 35.9 mmHg (35.0-45.0); ABG PH 7.337 (7.350-7.450); ABG PO2 90.6 mmHg (75.0-100.0); ABG TOTAL HEMOGLOBIN 9.8 G/dL (12.0-16.0); AaDO2 369.9 mmHg; COHb 0.5 % (0.5-1.5); MetHb 1.3 % (0.0-1.5); O2Hb 94.9 % (94.0-97.0); SITE, ABG Right Brachial
[2016-04-19] MEDS: FLUCONAZOLE IN NS,PREMIX 200 MG in PREMIX 1 EA IV SCH ×2 (22:33)
[2016-04-20] VITALS (96 sets, daily range): BP systolic 74–117; BP diastolic 13–76
[2016-04-20] MEDS: IPRATROPIUM NEB FS 0.5 MG/2.5 ML AMPUL.NEB NEB SCH ×7 (00:14→23:14)
[2016-04-20] MEDS: ALBUTEROL HALF STRENGTH 1.25 MG/3 ML VIAL.NEB NEB SCH ×7 (00:14→23:15)
[2016-04-20] MEDS: PHENYLEPHRINE 40 MG in IV D5W 250 ML IV PRN (00:22)
[2016-04-20] MEDS ORDERED: IV D5W 250 ML IV ONE ×2 (00:50→05:27)
[2016-04-20] MEDS ORDERED: PHENYLEPHRINE 10 MG/ML VIAL ONE ×2 (00:50→05:26)
[2016-04-20] MEDS: PHENYLEPHRINE 80 MG in IV D5W 250 ML IV PRN ×6 (01:53→23:52)
[2016-04-20] MEDS: NOREPINEPHRINE 16 MG in IV D5W 500 ML IV PRN ×4 (02:03→22:05)
[2016-04-20] MEDS ORDERED: ALBUMIN 25% 100 ML IV ONE (02:35)
[2016-04-20] MEDS ORDERED: VASOPRESSIN INJ 20 UNIT/ML VIAL ONE (02:36)
[2016-04-20] MEDS ORDERED: IV SET PRIMARY PUMP SET 1 EA INFUS.SET MC ONE ×3 (02:36→13:47)
[2016-04-20] MEDS ORDERED: IV D5W 0 ML IV ONE (02:37)
[2016-04-20] MEDS ORDERED: ALBUMIN 25% 12.5 GM in PREMIX 1 EA IV ONE (03:00)
[2016-04-20] MEDS: VASOPRESSIN INJ 50 UNIT in IV D5W 497.5 ML IV PRN ×2 (03:12→22:36)
--- NOTE | 2016-04-20 04:26 | NUR ---
ENAMEL DRIER. BP 77/45. CALLED DR RETANA. NEW ORDER RECEIVED.ALBUMIN 2BOTTLES GIVEN. VASO STARTED.BP 101/60.WILL CONTINUE TO MONITOR.
--- NOTE | 2016-04-20 04:30 | NUR ---
BELL SPINNER SOUSAPHONES. AM CARE. ORAL CARE, BED BATH GIVEN. LINEN CHANGED. REMAINING SAMW V
--- NOTE | 2016-04-20 04:44 | NUR ---
HEMATOLOGY SPECIALIST. AM CARE. ORAL CARE. BED BATH GIVEN .LINEN CHANGED. REMAINING SAME VENT SETTING TOLERATED WELL. SAT 100%. NO ACUTE DISTRESS NOTED, TECHNOLOGY RESOURCE TEACHER SHOWING A FIB. IV RT HAND MID LINE. VASO 0.04UNIT/H, LEVOPHED 40 MCG/ MIN. ROSS 300MCG/ MIN. LT NARE NGT LOW CONTINUES SUCTION. WILL CONTINUE TO MONITOR VITALS.WOUND DRESSING DONE.
[2016-04-20] MEDS ORDERED: IV D5W 500 ML IV ONE (05:26)
[2016-04-20] MEDS ORDERED: AMIKACIN 400 MG in IV D5W 100 ML IV PRN (06:00)
--- NOTE | 2016-04-20 08:00 | NUR ---
INTERNAL MEDICINE PHYSICIAN RECEIVED PT LETHARGIC, ON VENT. SINGLE MIDLINE FOR IV INFUSION. MULTIPLE WOUNDS COVERED WITH DRESSING. ON FIRST STEP MATTRESS. UNABLE TO GET BLOOD SAMPLE FOR LABS THIS AM. WILL WAIT FOR CENTRAL LINE AVAILABILITY.
[2016-04-20 08:13] LABS: ABG BASE EXCESS -15.5 mmol/L; ABG OXYGEN SATURATION 97.5 % (92.0-98.5); ABG PCO2 31.7 mmHg (35.0-45.0); ABG PH 7.182 (7.350-7.450); ABG TOTAL HEMOGLOBIN 10.1 G/dL (12.0-16.0); COHb 0.5 % (0.5-1.5); PEEP,BG 0 cm H2O; SITE, ABG Right Brachial; VT, ABG 600 mL
--- NOTE | 2016-04-20 08:16 | NUR ---
WOUND CARE CONSULT: PT NOT SEEN FOR SKIN ASSESSMENT DUE TO PT HEMODYNAMICALLY UNSTABLE, ON 3 PRESSORS. WILL SEE PT PT CONDITION PERMITS. PT ON FIRST STEP MATTRESS. Addendum: 04/20/16 at 0830 by DINO MARKHAM WNDNU WOUND RECOMMENDATIONS MADE BASED ON PHOTOS AND DISCUSSED WITH NURSING STAFF. PT HAS GENERALIZED EDEMA AND MULTIPLE SKIN TEARS. FEET NOTED TO BE DUSKY.
[2016-04-20] MEDS ORDERED: HYDROGEL DRESSING 90 GM TUBE TP PRN (08:30)
[2016-04-20] MEDS ORDERED: Z GUARD REMEDY 2 OZ OINT TP PRN (08:30)
[2016-04-20] MEDS ORDERED: SODIUM BICARBONATE SYR 50 MEQ/50 ML DISP.SYRIN ONE (08:31)
[2016-04-20] MEDS ORDERED: SODIUM BICARBONATE SYR 50 MEQ/50 ML DISP.SYRIN IV ONE (09:00)
[2016-04-20] MEDS: HYDROGEL DRESSING 90 GM TUBE TP SCH (09:30)
[2016-04-20] MEDS: DAKINS QUARTER STRENGTH (0.125%) 480 ML BOTTLE TOP SCH (09:31)
[2016-04-20] MEDS: Z GUARD REMEDY 2 OZ OINT TP SCH (09:32)
[2016-04-20] MEDS ORDERED: IV NS 0.9% 2,000 ML ONE (09:42)
[2016-04-20] MEDS ORDERED: Sodium Bicarbonate 100 MEQ in IV D5W 1,000 ML IV PRN (10:00)
--- NOTE | 2016-04-20 10:00 | NUR ---
WOUND NURSE EVAL. WOUNDS REDRESSED. REMAINS ON TRIPLE PRESSORS. AWAITING DIALYSIS.
[2016-04-20] MEDS ORDERED: SECONDARY IV SET 1 EA INFUS.SET MC ONE ×2 (10:24→13:58)
[2016-04-20 10:33] LABS: HEMATOCRIT 24 % (33-45); HEMOGLOBIN 7.9 g/dL (11.5-14.8); LYMPHOCYTES # (AUTO) 1.4 /CMM (0.8-4.8); LYMPHOCYTES % (AUTO) 3.5 % (20.0-44.0); MEAN CORPUSCULAR HEMOGLOBIN 31 PG (26.0-33.0); MEAN CORPUSCULAR HGB CONC 33 g/dl (31.0-36.0); MEAN CORPUSCULAR VOLUME 93 fL (82-100); MONOCYTES # (AUTO) 0.1 /CMM (0.1-1.30); MONOCYTES % (AUTO) 0.3 % (2.0-12.0); NEUTROPHILS # (AUTO) 39.8 /CMM (1.8-8.9); NEUTROPHILS % (AUTO) 96.2 % (43.0-81.0); PLATELET COUNT (AUTO) 83 /CMM (150-450); RDW COEFFICIENT OF VARIATION 21.8 (11.5-15.0)
[2016-04-20] MEDS: ALBUMIN 25% 25 GM in PREMIX 1 EA IV PRN ×2 (10:36→11:09)
[2016-04-20 10:43] LABS: WHITE BLOOD COUNT (AUTO) 41.4 K/uL (4.3-11.0)
[2016-04-20 10:47] LABS: CALCIUM, SERUM 8.9 mg/dL (8.5-10.1); CREATININE 2.7 mg/dL (0.6-1.3); MAGNESIUM 1.6 mg/dL (1.8-2.4); POTASSIUM 3.8 mmol/L (3.5-5.1)
[2016-04-20 10:57] LABS: BAND % (MANUAL) 40 % (0.0-5.0); LYMPHOCYTES % (MANUAL) 2 % (16-48); METAMYELOCYTES % 3 % (0-0); MONOCYTES % (MANUAL) 26 % (0-11.0); NEUTROPHILS % (MANUAL) 29 (42-76)
[2016-04-20 10:59] LABS: ANISOCYTOSIS 1+; HYPOCHROMASIA 1+; PLATELET ESTIMATE DECREASED
[2016-04-20 11:00] LABS: OVALOCYTES 1+
[2016-04-20 11:01] LABS: TEAR DROP CELLS 1+
--- NOTE | 2016-04-20 12:00 | NUR ---
PACKING CHECKER DIALYSIS IN PROGRESS. REMAINS ON TRIPLE PRESSORS. TOLERATING DIALYSIS SO FAR. DR HELM IN TO SEE PT.
[2016-04-20] MEDS ORDERED: SILVER NITRATE APPLICATOR 1 EA BOX TP STA ×3 (13:23→15:49)
[2016-04-20] MEDS ORDERED: LIDOCAINE 1%-EPI 1:100,000 20 ML VIAL TP ONE (13:30)
[2016-04-20] MEDS: MEROPENEM 500 MG in IV NS 0.9% 50 ML IV SCH (13:54)
[2016-04-20] MEDS: Sodium Bicarbonate 100 MEQ in IV D5 / 0.2% NACL 1,000 ML IV PRN (13:54)
--- NOTE | 2016-04-20 14:00 | NUR ---
CLINICAL LEADER DR RETANA IN TO SEE PT. ORDER FOR ADDITIONAL FLUIDS RECEIVED. DR LANCE STOPPED ORDER FOR ADDITIONAL FLUIDS. TOLERATED DIALYSIS WELL. 2L REMOVED. DR LANCE IN TO SEE PT. EVALUATED ABDOMINAL AND CHEST WOUNDS. CONSENT FOR DEBRIDEMENT SIGNED BY SON WITH FATHER PRESENT.
[2016-04-20] MEDS ORDERED: DAPTOMYCIN 500 MG in IV NS 0.9% 50 ML IV SCH (16:00)
--- NOTE | 2016-04-20 16:00 | NUR ---
PATIENT RESIDES AT [facility] EXT 455. PLAN TO D/C BACK ONCE MEDICALLY CLEARED. PATIENT IS OBTUNDED, TOTAL DEPENDENT WITH TRACH/VENT AND G-TUBE. MEENU REHMAN () [phone].
--- NOTE | 2016-04-20 19:48 | NUR ---
PT RCVD TRACH CARE ON MECH VENT WITH NOTED SETTINGS. SUCTION SMALL AMOUNT OF YELLOWISH WHITE THICK SECRETIONS. VENT ALARM IS WORKING AND AUDIBLE. VENT PLUGGED INTO RED OUTLET. AMBU BAG @ BEDSIDE. WILL CONTINUE TO MONITOR
[2016-04-20] MEDS: FLUCONAZOLE IN NS,PREMIX 200 MG in PREMIX 1 EA IV SCH ×2 (20:33)
--- NOTE | 2016-04-20 20:57 | NUR ---
received pt from day shift, obtunded, on the vent, afib and junctional interchangeably, on emilie, levo and vaso at maximum rates, on the vent, lungs congested, edema throughout pitting and weeping, NG to [facility], HD patient, abdominal wall debridement done by Dr Louann Swartz at 20:30, multiple wounds, dressings intact, v/s stable, pt turned and repositioned, family at the bedside.
[2016-04-21] VITALS (96 sets, daily range): BP systolic 69–106; BP diastolic 35–72
[2016-04-21] MEDS ORDERED: IV NS 0.9% 250 ML IV ONE
--- NOTE | 2016-04-21 00:24 | NUR ---
pt is resting in the bed, obtunded, on emilie, levo and vaso at maximum rates, v/s stable, no pain, pt turned and repositioned q2hrs. Code status changed to DNR per family decision, SWEATBAND DECORATING MACHINE OPERATOR onsite health coach for Dr Thompson notified.
[2016-04-21] MEDS: IPRATROPIUM NEB FS 0.5 MG/2.5 ML AMPUL.NEB NEB SCH ×6 (03:18→23:34)
[2016-04-21] MEDS: ALBUTEROL HALF STRENGTH 1.25 MG/3 ML VIAL.NEB NEB SCH ×6 (03:18→23:34)
[2016-04-21] MEDS: PHENYLEPHRINE 80 MG in IV D5W 250 ML IV PRN ×5 (04:06→20:35)
[2016-04-21] MEDS: NOREPINEPHRINE 16 MG in IV D5W 500 ML IV PRN ×4 (04:10→23:41)
--- NOTE | 2016-04-21 04:20 | NUR ---
pt is resting in the bed, obtunded, receiving levo, emilie and vaso at maximum rates, v/s stable, no pain, pt cleaned, changed and repositioned q2hrs.
[2016-04-21] MEDS: Sodium Bicarbonate 100 MEQ in IV D5 / 0.2% NACL 1,000 ML IV PRN (07:55)
[2016-04-21] MEDS: MEROPENEM 500 MG in IV NS 0.9% 50 ML IV SCH (07:55)
[2016-04-21] MEDS: HYDROGEL DRESSING 90 GM TUBE TP SCH (07:56)
[2016-04-21] MEDS: DAKINS QUARTER STRENGTH (0.125%) 480 ML BOTTLE TOP SCH (07:56)
[2016-04-21] MEDS: Z GUARD REMEDY 2 OZ OINT TP SCH (07:56)
[2016-04-21] MEDS ORDERED: DEXTROSE 50%-WATER 50 ML DISP.SYRIN IV PRN (08:00)
--- NOTE | 2016-04-21 08:00 | NUR ---
WOOD TANK ERECTOR RECEIVED PT IN BED OBTUNDED, ON VENT SETTINGS NOTED, PT HR 100 SBP STABLE ON 3 PRESSORS MAXED OUT, PT HAS SEVERE MULTIPLE WOUNDS ALL OVER UPPER EXTREMITIES AND SACRUM, PT CONDITION IS GARDED, UNABLE TO TURN OR REPOSITION PT SHE IS VERY UNSTABLE, PT IS ALSO BLEEDING FORM TRACH SITE AND EXTREMITY FROM SKIN CUTS, MD AWARE, PICC LINE PATENT INFUSING MEDS ABD AND UPPER CHEST WALL DRESSING INTACT BLOOD TINGED DISCHARGE, WILL CONTINUE TO MONITOR.
[2016-04-21 08:48] LABS: ABG BASE EXCESS -15.6 mmol/L; ABG OXYGEN SATURATION 95.5 % (92.0-98.5); ABG PCO2 29.5 mmHg (35.0-45.0); ABG PH 7.196 (7.350-7.450); ABG PO2 88.7 mmHg (75.0-100.0); ABG TOTAL HEMOGLOBIN 8.2 G/dL (12.0-16.0); AaDO2 378.7 mmHg; COHb 1.1 % (0.5-1.5); MetHb 1.4 % (0.0-1.5); O2Hb 93.1 % (94.0-97.0); PEEP,BG 5 cm H2O; SITE, ABG Right Brachial; VT, ABG 600 mL
[2016-04-21] MEDS ORDERED: DAPTOMYCIN 500 MG in IV NS 0.9% 50 ML IV SCH (09:00)
--- NOTE | 2016-04-21 09:22 | NUR ---
PATIENT STILL NOT STABLE TO COME DOWN FOR CT ABDOMEN PELVIS PER RN
[2016-04-21 09:51] LABS: BASOPHILS % (AUTO) 0.1 % (0.0-2.0); EOSINOPHILS # (AUTO) 0.1 /CMM (0.0-0.7); EOSINOPHILS % (AUTO) 0.2 % (0.0-6.0); HEMATOCRIT 24 % (33-45); HEMOGLOBIN 7.6 g/dL (11.5-14.8); LYMPHOCYTES # (AUTO) 1.1 /CMM (0.8-4.8); LYMPHOCYTES % (AUTO) 2.9 % (20.0-44.0); MEAN CORPUSCULAR HEMOGLOBIN 30 PG (26.0-33.0); MEAN CORPUSCULAR HGB CONC 32 g/dl (31.0-36.0); MEAN CORPUSCULAR VOLUME 95 fL (82-100); MONOCYTES % (AUTO) 0.1 % (2.0-12.0); NEUTROPHILS # (AUTO) 36.3 /CMM (1.8-8.9); NEUTROPHILS % (AUTO) 96.7 % (43.0-81.0); PLATELET COUNT (AUTO) 70 /CMM (150-450); RDW COEFFICIENT OF VARIATION 25.3 (11.5-15.0); RED BLOOD CELL COUNT(AUTO) 2.51 MIL/uL (4.0-5.2)
[2016-04-21 09:57] LABS: CALCIUM, SERUM 8.7 mg/dL (8.5-10.1); CREATININE 2.1 mg/dL (0.6-1.3); MAGNESIUM 1.6 mg/dL (1.8-2.4); PHOSPHORUS 1.8 mg/dL (2.5-4.9); POTASSIUM 3.4 mmol/L (3.5-5.1)
[2016-04-21 10:00] LABS: WHITE BLOOD COUNT (AUTO) 37.5 K/uL (4.3-11.0)
[2016-04-21] MEDS ORDERED: SECONDARY IV SET 1 EA INFUS.SET MC ONE (10:08)
[2016-04-21 10:12] LABS: BAND % (MANUAL) 5 % (0.0-5.0); LYMPHOCYTES % (MANUAL) 2 % (16-48); MONOCYTES % (MANUAL) 2 % (0-11.0); NEUTROPHILS % (MANUAL) 91 (42-76)
[2016-04-21] MEDS: HYDROCORTISONE SOD SUCCINATE 100 MG/2 ML VIAL IV SCH ×3 (10:12→17:02)
[2016-04-21 10:13] LABS: ANISOCYTOSIS 1+; PLATELET ESTIMATE DECREASED
[2016-04-21] MEDS: BLOOD SUGAR DIAGNOSTIC 1 EACH STRIP IN SCH ×3 (11:14→23:27)
[2016-04-21] MEDS ORDERED: Sodium Phosphate 15 MMOL in IV D5W 250 ML IV ONE (17:00)
--- NOTE | 2016-04-21 18:04 | NUR ---
INVESTMENT ACCOUNTANT NO CHANGE IN PT CONDITION STILL UNSTABLE ON 3 PRESSORS MAXED OUT, NO FEVER MAX TEMP 99.5 VS STABLE, FAMILY AT BEDSIDE DR. RETANA SPOKE WITH FAMILY REGARDING PT CONDITION AND SPOKE WITH FAMILY REGARDING MAKING PT COMFORT CARE, FAMILY WILL THINK ABOUT IT AND WILL DISCUSS WITH MD REGARDING CARE TOMORROW. ALL PT NEEDS MEET UNABLE TO TURN OR REPOSITION PT SHE IS STILL UNSTABLE WILL GIVE REPORT TO PM NURSE FOR CONTINUITY OF CARE.
[2016-04-21] MEDS: VASOPRESSIN INJ 50 UNIT in IV D5W 497.5 ML IV PRN (20:41)
[2016-04-21] MEDS: FLUCONAZOLE IN NS,PREMIX 200 MG in PREMIX 1 EA IV SCH ×2 (20:45)
[2016-04-21] MEDS: INSULIN REGULAR, HUMAN 100 UNIT/ML 3 ML VIAL SQ PRN (23:34)
[2016-04-22] VITALS (50 sets, daily range): BP systolic 66–97; BP diastolic 18–62
[2016-04-22] MEDS: PHENYLEPHRINE 80 MG in IV D5W 250 ML IV PRN ×3 (02:01→11:17)
[2016-04-22] MEDS: ALBUTEROL HALF STRENGTH 1.25 MG/3 ML VIAL.NEB NEB SCH ×3 (03:00→10:44)
[2016-04-22] MEDS: IPRATROPIUM NEB FS 0.5 MG/2.5 ML AMPUL.NEB NEB SCH ×3 (03:00→10:44)
[2016-04-22 04:41] LABS: EOSINOPHILS # (AUTO) 0.1 /CMM (0.0-0.7); EOSINOPHILS % (AUTO) 0.2 % (0.0-6.0); HEMATOCRIT 25 % (33-45); HEMOGLOBIN 7.9 g/dL (11.5-14.8); LYMPHOCYTES # (AUTO) 1.1 /CMM (0.8-4.8); LYMPHOCYTES % (AUTO) 2.5 % (20.0-44.0); MEAN CORPUSCULAR HEMOGLOBIN 31 PG (26.0-33.0); MEAN CORPUSCULAR HGB CONC 32 g/dl (31.0-36.0); MEAN CORPUSCULAR VOLUME 96 fL (82-100); MONOCYTES # (AUTO) 0.1 /CMM (0.1-1.30); MONOCYTES % (AUTO) 0.3 % (2.0-12.0); NEUTROPHILS # (AUTO) 43.6 /CMM (1.8-8.9); PLATELET COUNT (AUTO) 59 /CMM (150-450); RDW COEFFICIENT OF VARIATION 25.4 (11.5-15.0); RED BLOOD CELL COUNT(AUTO) 2.56 MIL/uL (4.0-5.2)
[2016-04-22] MEDS ORDERED: IV NS 0.9% 250 ML IV ONE (04:50)
[2016-04-22 04:52] LABS: CALCIUM, SERUM 8.3 mg/dL (8.5-10.1); CREATININE 2.2 mg/dL (0.6-1.3); MAGNESIUM 1.5 mg/dL (1.8-2.4); PHOSPHORUS 2.9 mg/dL (2.5-4.9); POTASSIUM 3.7 mmol/L (3.5-5.1)
[2016-04-22] MEDS: Sodium Bicarbonate 100 MEQ in IV D5 / 0.2% NACL 1,000 ML IV PRN (05:21)
[2016-04-22] MEDS: BLOOD SUGAR DIAGNOSTIC 1 EACH STRIP IN SCH ×2 (05:34→11:17)
[2016-04-22 05:38] LABS: BAND % (MANUAL) 15 % (0.0-5.0); BASOPHILS % (MANUAL) 0 % (0.0-2.0); EOSINOPHILS % (MANUAL) 0 % (0-4); LYMPHOCYTES % (MANUAL) 2 % (16-48); MONOCYTES % (MANUAL) 5 % (0-11.0); NEUTROPHILS % (MANUAL) 78 (42-76)
[2016-04-22 05:39] LABS: ANISOCYTOSIS 2+; PLATELET ESTIMATE DECREASED
[2016-04-22] MEDS: INSULIN REGULAR, HUMAN 100 UNIT/ML 3 ML VIAL SQ PRN ×2 (05:46→11:25)
[2016-04-22] MEDS: NOREPINEPHRINE 16 MG in IV D5W 500 ML IV PRN (06:27)
--- NOTE | 2016-04-22 07:23 | NUR ---
GEAR TECHNICIAN RECEIVED PT IN BED OBTUND NO RESPONSE TO PAIN OR STIMULI, PT IS ON VENT SETTINGS NOTED ALARMS CHECKED AMBUBAG AT BEDSIDE, PT HR 98 SBP 89 ON 3 PRESSORS MAXED, PT HAS SWELLING ALL EXTREMITIES, EXTREMITIES COOL AND CLAMMY WITH MOTTLED TOWS, PT IV SITE CLEAN INTACT INFUSING MEDS, NG TUBE PATENT, ABD SOFT HYPOACTIVE, ABD DRESSINGS INTACT CLEAN AND DRY, UPPER EXTREMITIES HAS MULTIPLE SKIN CUTS AND MASSIVE BRUISES, FAMILY AT BEDSIDE, UNABLE TO TURN AND REPOSTIION PT SHE IS NOT DOING WELL AND UNSTABLE, WILL CONTINUE TO MONITOR.
[2016-04-22] MEDS: MEROPENEM 500 MG in IV NS 0.9% 50 ML IV SCH (08:04)
[2016-04-22] MEDS: HYDROGEL DRESSING 90 GM TUBE TP SCH (08:04)
[2016-04-22] MEDS: DAKINS QUARTER STRENGTH (0.125%) 480 ML BOTTLE TOP SCH (08:04)
[2016-04-22] MEDS: HYDROCORTISONE SOD SUCCINATE 100 MG/2 ML VIAL IV SCH ×2 (08:04→11:26)
[2016-04-22] MEDS: Z GUARD REMEDY 2 OZ OINT TP SCH (08:05)
[2016-04-22] MEDS ORDERED: DOSE PER PHARMACY (MD SPECIFY MEDICATION) 1 EA XX PRN (08:30)
[2016-04-22 09:12] LABS: ABG BASE EXCESS -17.9 mmol/L; ABG OXYGEN SATURATION 93.1 % (92.0-98.5); ABG PH 7.096 (7.350-7.450); ABG PO2 80.6 mmHg (75.0-100.0); ABG TOTAL HEMOGLOBIN 8.5 G/dL (12.0-16.0); AaDO2 380.9 mmHg; COHb 1.5 % (0.5-1.5); MetHb 1.5 % (0.0-1.5); O2Hb 90.3 % (94.0-97.0); PEEP,BG 0 cm H2O; SITE, ABG Right Brachial; VT, ABG 600 mL
[2016-04-22] MEDS ORDERED: COLISTIMETHATE SODIUM 150 MG in IV NS 0.9% 50 ML IV SCH (10:00)
--- NOTE | 2016-04-22 10:31 | NUR ---
agricultural agent pt family at bedside asked to held 1000 iv antibiotics as pt condition will not change or make a difference, teaching done regarding the need for it family Eldon still refused. Md dr. Thompson at bedside advised family that pt is not doing well, no new orders md aware of pt condition and lab results. Will continue to monitor. pt still on maxed 3 pressors sbp 70s hr 100
--- NOTE | 2016-04-22 12:41 | NUR ---
BOTH SONS HERE AND REQUEST THAT I CALL DR RETANA TO STOP EVERYTHING AND START COMFORT CARE. DR RETANA GAVE INSTRUCTIONS TO STOP ALL RX AND INITIATE COMFORT CARE
[2016-04-22] MEDS ORDERED: MORPHINE SULFATE INJ 4 MG/ML DISP.SYRIN IV PRN (13:00)
--- NOTE | 2016-04-22 13:24 | NUR ---
placed into cool aerosol @ 80% fio2 per md order for comfort care. Addendum: 04/22/16 at 1326 by JANET GIBBONS RT Amended: Links added.
--- NOTE | 2016-04-22 13:30 | NUR ---
PT PRONOUNCED . COMFORT CARE DNR STATUS. NO AUDIBLE HEART TONES. MONITOR SHOWS ASYSTOLE. NO PALPABLE PULSES. NO OBTAINABLE BP. NO RESPIRATORY EFFORT ON T TUBE VIA TRACH. PUPILS FIXED AND DILATED. SONS LEFT BEDSIDE MOMENTS PRIOR TO
[2016-04-22] MEDS ORDERED: INSULIN DETEMIR 100 UNIT/ML CARTRIDGE SQ SCH (21:00)
== END 2016-04-22 13:30 | disposition expired | DRG 721 ==
LOC: ER 08:41 → ICU 12:49
PROVIDERS: ADMIT Internal Medicine; ATTEND Internal Medicine
PROC: 5A1945Z Respiratory Ventilation, 24-96 Consecutive Hours (ICD-10-PCS; principal; 2016-04-19)
PROC: 02HV33Z Insertion of Infusion Device into Superior Vena Cava, Percutaneous Approach (ICD-10-PCS; principal; 2016-04-19)
PROC: B548ZZA Ultrasonography of Superior Vena Cava, Guidance (ICD-10-PCS; principal; 2016-04-19)
PROC: 05HM33Z Insertion of Infusion Device into Right Internal Jugular Vein, Percutaneous Approach (ICD-10-PCS; 2016-04-20)
PROC: 5A1D60Z (ICD-10-PCS; 2016-04-20)
PROC: B543ZZA Ultrasonography of Right Jugular Veins, Guidance (ICD-10-PCS; 2016-04-20)
PROC: 0H97XZZ Drainage of Abdomen Skin, External Approach (ICD-10-PCS; 2016-04-20)
DX: T80.219A Unspecified infection due to central venous catheter, initial encounter (principal); Z51.5 Encounter for palliative care; J96.21 Acute and chronic respiratory failure with hypoxia; R65.21 Severe sepsis with septic shock; E43 Unspecified severe protein-calorie malnutrition; L89.159 Pressure ulcer of sacral region, unspecified stage; Z99.11 Dependence on respirator [ventilator] status; A41.9 Sepsis, unspecified organism; J18.9 Pneumonia, unspecified organism; E87.2 Acidosis; N18.6 End stage renal disease; E11.52 Type 2 diabetes mellitus with diabetic peripheral angiopathy with gangrene; D69.6 Thrombocytopenia, unspecified; I50.32 Chronic diastolic (congestive) heart failure; E11.22 Type 2 diabetes mellitus with diabetic chronic kidney disease; I48.0 Paroxysmal atrial fibrillation; J96.22 Acute and chronic respiratory failure with hypercapnia; E66.01 Morbid (severe) obesity due to excess calories; I25.10 Atherosclerotic heart disease of native coronary artery without angina pectoris; E03.9 Hypothyroidism, unspecified; Z99.2 Dependence on renal dialysis; Z85.3 Personal history of malignant neoplasm of breast; E11.622 Type 2 diabetes mellitus with other skin ulcer; Z90.12 Acquired absence of left breast and nipple; Z93.1 Gastrostomy status; I89.0 Lymphedema, not elsewhere classified; L02.211 Cutaneous abscess of abdominal wall; Z66 Do not resuscitate; D64.9 Anemia, unspecified; D72.823 Leukemoid reaction; I05.0 Rheumatic mitral stenosis; L97.929 Non-pressure chronic ulcer of unspecified part of left lower leg with unspecified severity; T46.0X5A Adverse effect of cardiac-stimulant glycosides and drugs of similar action, initial encounter; Y84.8 Other medical procedures as the cause of abnormal reaction of the patient, or of later complication, without mention of misadventure at the time of the procedure; Z79.4 Long term (current) use of insulin; Z86.14 Personal history of Methicillin resistant Staphylococcus aureus infection; Z88.0 Allergy status to penicillin; B96.89 Other specified bacterial agents as the cause of diseases classified elsewhere
CPT/HCPCS: 31720; 36415; 36600; 71010-TC; 76882; 80048-TC; 80076-TC; 80150; 82533; 82550-TC; 82803-TC; 82962-TC; 83605-TC; 83735-TC; 84100-TC; 84484-TC; 85025-TC; 85730-TC; 87040-TC; 87070-TC; 87081-TC; 87186-TC; 87400; 90935-TC; 94002-TC; 94003-TC; 94640-TC; A4216; A4606; A6248; A6253; A6402; A6403; A7526; A9563; C1751; J0278; J0713; J0770; J0878; J1450; J1720; J1815; J2185; J2270; J2370; J3490; J7030; J7050; J7060; J7070; P9047; Z7610